=== PATIENT | male | born 1935 | race Caucasian/White ===

== ENCOUNTER 2018-11-05 11:01 | Inpatient (IN) | payer OTHER ==
[2018-11-05] MEDS ORDERED: ACETAMINOPHEN 1000 MG/100 ML VIAL (NON FORMULARY) IVPB ONE (11:11)
[2018-11-05] MEDS ORDERED: FAMOTIDINE 20 MG/50 ML IVPB 20 MG/50 ML MG IVPB ONE ×2 (11:11→14:01)
[2018-11-05] MEDS ORDERED: SODIUM CHLORIDE 1,000 ML IV STA (11:11)
--- NOTE | 2018-11-05 11:11 | PDOC ---
History of Present Illness - General Chief Complaint: Nausea/Vomiting Stated Complaint: VOMITING Time Seen by Provider: 11/05/18 11:07 History Source: Patient Exam Limitations: Clinical Condition - History of Present Illness Initial Comments: Ismael Bonner is an 83 yo M from [facility] w a pmh of GERD, HTN, HLD, COPD, Anemia, chronic constipation, BPH, arthritis, recent left leg skin cancer removal, and Parkinsons disease who presents to the [facility] er BIBEMS after he experienced coffee ground emesis this morning at the longterm after he was eating eggs. Patient states he woke up and felt normal but then he ate eggs for breakfast and after breakfast started vomiting dark material. EMS said that the vomitus appeared to be coffee ground. The patient thinks his vomit was a result of eating some bad food. The patient states that this morning he had abdominal pain and nausea but that has mostly resolved after EMS gave him zofran which made him feel better. Patient states he had a bowel movement yesterday and feels constipated but this is no different than his usual constipation. Patient denies chest pain, back pain, SOB, fevers, diarrhea, headache, or neck pain. PCP: Teo Werner PSH: Recent left leg surgery, contracture surgeries Social Hx: [facility] resident. Former smoker. Denies current toxic habits. Allergies: NKA, NKDA Advanced directives: DNR/DNI Past History - Past Medical History Allergies/Adverse Reactions: Allergies Allergy/AdvReac Type Severity Reaction Status Date / Time No Known Drug Allergies Allergy Verified 11/05/18 11:15 Home Medications: Ambulatory Orders Ascorbate Calcium [Vitamin C] 500 mg PO DAILY 02/15/14 Carbidopa/Levodopa 10 [Sinemet 10 -] 2 tab PO TID 02/15/14 Divalproex [Depakote -] 750 mg PO HS 02/15/14 Fluticasone Prop 0.05% Nasal [Flonase -] 1 spray DAILY 02/15/14 Hydrochlorothiazide [Hctz -] 25 mg PO DAILY 02/15/14 Ropinirole HCl [Requip] 1 mg PO HS 02/15/14 Tamsulosin HCl [Flomax -] 2 cap PO HS 02/15/14 Cholecalciferol (Vitamin D3) [Vitamin D3] 1,000 unit PO DAILY 12/09/14 Multivitamin [Poly-Vitamin] 1 each PO DAILY 12/09/14 Polyethylene Glycol 3350 [Miralax 119 gm Btl -] 17 gm PO DAILY 12/09/14 Salmeterol/Fluticasone [Advair 100Mcg/50Mcg -] 1 inh PO BID 12/09/14 Selenium Sulfide/Menthol [Selsun Blue 1% Shampoo] 0 ml TP TH 12/09/14 Sennosides [Senna] 2 tab PO HS 12/09/14 Simvastatin 40 mg PO PCHS 12/09/14 Ferrous Gluconate [Iron] 325 mg PO BID 08/13/15 Anemia: Yes Asthma: No Cancer: No Cardiac Disorders: No CVA: No COPD: Yes CHF: No Dementia: No Diabetes: No GI Disorders: No Disorders: No HTN: Yes Hypercholesterolemia: Yes Liver Disease: No Seizures: No Thyroid Disease: No - Surgical History Abdominal Surgery: No Appendectomy: No Cardiac Surgery: No Cholecystectomy: No Lung Surgery: No Neurologic Surgery: No Orthopedic Surgery: No - Suicide/Smoking/Psychosocial Hx Smoking History: Former smoker Have you smoked in the past 12 months: Yes Number of Cigarettes Smoked Daily: 2 Hx Alcohol Use: No Drug/Substance Use Hx: No Review of Systems - Review of Systems Able to Perform ROS?: Yes Comments:: CONSTITUTIONAL: Absent: fever, no chills, no fatigue EYES: Absent: visual changes ENT: Absent: ear pain, no sore throat CARDIOVASCULAR: Absent: chest pain, no palpitations RESPIRATORY: Absent: cough, no SOB GI: Present: Abdominal pain, nausea, vomiting, constipation. Absent: no diarrhea GENITOURINARY: Absent: dysuria, no frequency, no hematuria MUSKULOSKELETAL: Present: Arthralgia Absent: back pain, no myalgia SKIN: Present: rash NEURO: Absent: headache *Physical Exam - Physical Exam Comments: GENERAL: Elderly, frail, multiple contractures, pale. No apparent distress. HEENT: Normocephalic, atraumatic. PERRL, EOM intact. CARDIOVASCULAR: Tachycardic rate. Normal S1, S2. Regular rhythm. PULMONARY: No evidence of respiratory distress. Lungs clear to auscultation bilaterally. No wheezing, rales or rhonchi. ABDOMEN: The abdomen is distended. There is generalized discomfort to palpation. Normal bowel sounds. No guarding or rebound. EXTREMITIES: Limited ROM in all four extremities. SKIN: There are stitches in the left lower leg. Multiple stage 1 pressure ulcers on patient's b/l feet. NEUROLOGICAL: No focal neurological deficits. ED Treatment Course - LABORATORY CBC & Chemistry Diagram: 11/05/18 12:26 11/05/18 12:26 - RADIOLOGY Radiograph Interpretation: CTAP: HISTORY PROVIDED: Abdominal pain. Sequential axial images were obtained from the domes of the diaphragms through the symphysis pubis following the administration of intravenous contrast material. Atelectatic changes are noted at both lung bases. There is a moderate hiatal hernia in the retrocardiac space. The liver, spleen, pancreas, adrenal glands and kidneys demonstrate no significant abnormalities. The gallbladder is clear. There is no evidence of intra-abdominal or retroperitoneal lymphadenopathy or fluid collections. There is no evidence of pneumoperitoneum, bowel obstruction or intra-abdominal abscess. There is no CT evidence of acute appendicitis or diverticulitis. Examination of the pelvis demonstrates a large amount of retained fecal material within the rectum. There is no evidence of pelvic masses, fluid collections or lymphadenopathy. There is a right inguinal hernia containing nonobstructed small bowel loops. There is a left atrial hernia containing a portion of the sigmoid colon. There is no evidence of acute bony pathology. IMPRESSION: 1. Moderate hiatal hernia. 2. Bilateral inguinal hernias. 3. Fecal impaction. Please see above discussion. Medical Decision Making - Medical Decision Making Ismael Bonner is an 83 yo M from [facility] w a pmh of GERD, HTN, HLD, COPD, Anemia, chronic constipation, BPH, arthritis, recent left leg skin cancer removal, and Parkinsons disease who presents to the [facility] after he experienced coffee ground emesis this morning at the longterm after he was eating eggs. Patient states he woke up and felt normal but then he ate eggs for breakfast and after breakfast started vomiting dark material. EMS said that the vomitus appeared to be coffee ground. The patient thinks his vomit was a result of eating some bad food. The patient states that this morning he had abdominal pain and nausea but that has mostly resolved after EMS gave him zofran which made him feel better. Patient states he had a bowel movement yesterday and feels constipated but this is no different than his usual constipation. Vital Signs Temp Pulse Resp BP Pulse Ox 97.7 F 124 H 18 139/78 100 11/05/18 11:01 11/05/18 11:01 11/05/18 11:01 11/05/18 11:01 11/05/18 11:01 DDx IBNLT: SBO, cholecystitis, volvulus, diverticulitis, electrolyte/metabolic disturbance, ACS/ND, gastritis, gastroenteritis, GERD, PUD, appendicitis, dehydration Plan: Labs, Urine, EKG, CTAP, analgesia, IV hydration, re-assess, probable admission to hospital Labs: CBC,CMP WBC 17.1 K/mm3 (4.0-10.0) H 11/05/18 12:26 RBC 4.80 M/mm3 (4.00-5.60) 11/05/18 12:26 Hgb 14.7 GM/dL (11.7-16.9) 11/05/18 12:26 Hct 45.1 % (35.4-49) D 11/05/18 12:26 MCV 94.1 fl (80-96) 11/05/18 12:26 MCH 30.6 pg (25.7-33.7) 11/05/18 12:26 MCHC 32.5 g/dl (32.0-35.9) 11/05/18 12:26 RDW 14.0 % (11.9-15.9) 11/05/18 12:26 Plt Count 217 K/MM3 (134-434) 11/05/18 12:26 MPV 10.4 fl (7.5-11.1) 11/05/18 12:26 Absolute Neuts (auto) 15.6 K/mm3 (1.5-8.0) H 11/05/18 12:26 Neutrophils % 91.6 % (42.8-82.8) H 11/05/18 12:26 Neutrophils % (Manual) 84.7 % (42.8-82.8) H 11/05/18 12:26 Band Neutrophils % 6.1 % 11/05/18 12:26 Lymphocytes % 2.2 % (8-40) L D 11/05/18 12:26 Lymphocytes % (Manual) 2.1 % (8-40) L 11/05/18 12:26 Monocytes % 6.0 % (3.8-10.2) 11/05/18 12:26 Monocytes % (Manual) 6 % (3.8-10.2) 11/05/18 12:26 Eosinophils % 0.1 % (0-4.5) D 11/05/18 12:26 Eosinophils % (Manual) 0.0 % (0-4.5) 11/05/18 12:26 Basophils % 0.1 % (0-2.0) 11/05/18 12:26 Basophils % (Manual) 0.0 % (0-2.0) 11/05/18 12:26 Myelocytes % (Man) 0 % (0-2) 11/05/18 12:26 Promyelocytes % (Man) 0 % (0-2) 11/05/18 12:26 Blast Cells % (Manual) 0 % (0-0) 11/05/18 12:26 Nucleated RBC % 0 % (0-0) 11/05/18 12:26 Metamyelocytes 0 % (0-2) 11/05/18 12:26 Hypochromia 0 11/05/18 12:26 Toxic Granulation 1+ 11/05/18 12:26 Platelet Estimate Normal 11/05/18 12:26 Polychromasia 0 11/05/18 12:26 Poikilocytosis 0 11/05/18 12:26 Anisocytosis 0 11/05/18 12:26 Microcytosis 0 11/05/18 12:26 Macrocytosis 1+ 11/05/18 12:26 Sodium 142 mmol/L (136-145) 11/05/18 12:26 Potassium 4.1 mmol/L (3.5-5.1) 11/05/18 12:26 Chloride 102 mmol/L (98-107) 11/05/18 12:26 Carbon Dioxide 29 mmol/L (21-32) 11/05/18 12:26 Anion Gap 10 MMOL/L (8-16) 11/05/18 12:26 BUN 24.8 mg/dL (7-18) H 11/05/18 12:26 Creatinine 0.9 mg/dL (0.55-1.3) 11/05/18 12:26 Est GFR (CKD-EPI)AfAm 89.95 11/05/18 12:26 Est GFR (CKD-EPI)NonAf 77.61 11/05/18 12:26 Random Glucose 113 mg/dL (74-106) H 11/05/18 12:26 Lactic Acid 1.4 mmol/L (0.4-2.0) 11/05/18 12:26 Calcium 9.2 mg/dL (8.5-10.1) 11/05/18 12:26 Phosphorus 2.7 mg/dL (2.5-4.9) 11/05/18 12:26 Magnesium 2.0 mg/dL (1.8-2.4) 11/05/18 12:26 Total Bilirubin 1.0 mg/dL (0.2-1) 11/05/18 12:26 AST 560 U/L (15-37) H 11/05/18 12:26 ALT 358 U/L (13-61) H 11/05/18 12:26 Alkaline Phosphatase 155 U/L (45-117) H 11/05/18 12:26 Troponin I < 0.02 ng/ml (0.00-0.05) 11/05/18 12:26 Total Protein 6.8 g/dl (6.4-8.2) 11/05/18 12:26 Albumin 3.3 g/dl (3.4-5.0) L 11/05/18 12:26 Lipase 3128 U/L (73-393) H 11/05/18 12:26 EKG: Sinus tachycardia rate of 123, narrow complexes, normal axis, no hypertrophy, no abnormal TWI's, Possible [address] depressions in v4-v6, no Q waves. WV 116, QTc 440 CTAP: Unremarkable Disposition: Admit to hospital for pancreatitis. *DC/Admit/Observation/Transfer Diagnosis at time of Disposition: Pancreatitis Qualifiers: Chronicity: acute Pancreatitis type: unspecified pancreatitis type Acute pancreatitis complication: unspecified Qualified Code(s): K85.90 - Acute pancreatitis without necrosis or infection, unspecified - Discharge Dispostion Condition at time of disposition: Stable Decision to Admit order: Yes - Referrals - Patient Instructions - Post Discharge Activity
[2018-11-05] MEDS ORDERED: ONDANSETRON 4 MG/2 ML VIAL IVPUSH ONE (11:12)
[2018-11-05 11:15] VITALS: BMI 20.3
[2018-11-05] MEDS ORDERED: ONDANSETRON 4 MG/2 ML VIAL ONE ×2 (11:15→14:42)
--- NOTE | 2018-11-05 12:57 | PDOC ---
Documentation entered by Nita Coyne SCRIBE, acting as scribe for Meghan Zelaya MD. Meghan Zelaya MD: This documentation has been prepared by the Doretha lai Nirvannie, SCRIBE, under my direction and personally reviewed by me in its entirety. I confirm that the documentation accurately reflects all work, treatment, procedures, and medical decision making performed by me. Attending Attestation - Resident Resident Name: Luciano Rich - ED Attending Attestation I have performed the following: I have examined & evaluated the patient, The case was reviewed & discussed with the resident, I agree w/resident's findings & plan, Exceptions are as noted - HPI HPI: 11/05/18 12:06 The patient is an 83 year old male, with a significant past medical history of GERD, HTN, HLD, COPD, Anemia, chronic constipation, BPH, arthritis, recent left leg skin cancer removal, and Parkinsons Disease , who presents to the emergency department via EMS from [facility] with, s/p episode coffee ground emesis and abdominal pain. As per patient, he ate eggs this morning then vomited which was dark in color. He notes his symptoms improved with Zofran. He denies any recent fevers, chills, headache or dizziness. He denies any recent chest pain or shortness of breath. He denies any recent dysuria, frequency, urgency or hematuria. Allergies: NKDA Social History: Resident at [facility]. Former smoker. Primary Care Physician: Dr. Teo Werner - Physicial Exam PE: 11/05/18 11:57 GENERAL: Awake, alert, and fully oriented, in no acute distress HEAD: No signs of trauma EYES: PERRLA, EOMI, sclera anicteric, conjunctiva clear ENT: Auricles normal inspection, hearing grossly normal, nares patent, oropharynx clear without exudates. Dry mucosa NECK: Normal ROM, supple, no lymphadenopathy, JVD, or masses LUNGS: Breath sounds equal, clear to auscultation bilaterally. No wheezes, and no crackles HEART: Regular rate and rhythm, normal S1 and S2, no murmurs, rubs or gallops ABDOMEN: Soft, nontender, normoactive bowel sounds. No guarding, no rebound. No masses EXTREMITIES: Normal range of motion, no edema. No clubbing or cyanosis. No cords, erythema, or tenderness NEUROLOGICAL: Cranial nerves II through XII grossly intact. Normal speech. Motor and sensation intact SKIN: Warm, Dry, normal turgor, no rashes or lesions noted - Medical Decision Making Pt presents with abd pain, vomiting, coffee ground emesis. Will obtain labs, check stool guaiac, give IV fluids, and obtain CT a/p (due to tenderness). Plan for likely admission. 11/05/18 15:27 Pt with extremely elevated lipase. Will add abdominal ultrasound and admit for pancreatitis.
[2018-11-05 13:02] LABS: BASO % 0.1 % (0-2.0); EOS % 0.1 % (0-4.5); HEMATOCRIT 45.1 % (35.4-49); HEMOGLOBIN 14.7 GM/dL (11.7-16.9); LYMPH % 2.2 % (8-40); MCH 30.6 pg (25.7-33.7); MCHC 32.5 g/dl (32.0-35.9); MEAN CELL VOLUME 94.1 fl (80-96); MEAN PLT VOLUME 10.4 fl (7.5-11.1); NEUT % 91.6 % (42.8-82.8); PLATELET COUNT 217 K/MM3 (134-434); WHITE BLOOD COUNT 17.1 K/mm3 (4.0-10.0)
[2018-11-05 13:13] LABS: ALBUMIN 3.3 g/dl (3.4-5.0); ALK PHOS 155 U/L (45-117); ANION GAP 10 MMOL/L (8-16); BLOOD UREA NITROGEN 24.8 mg/dL (7-18); CALCIUM 9.2 mg/dL (8.5-10.1); CHLORIDE 102 mmol/L (98-107); CO2 29 mmol/L (21-32); CREATININE 0.9 mg/dL (0.55-1.3); GLUCOSE,RANDOM 113 mg/dL (74-106); LIPASE 3128 U/L (73-393); PHOSPHOROUS 2.7 mg/dL (2.5-4.9); POTASSIUM 4.1 mmol/L (3.5-5.1); SGOT/AST 560 U/L (15-37); SGPT/ALT 358 U/L (13-61); SODIUM 142 mmol/L (136-145); TOT PROT 6.8 g/dl (6.4-8.2)
[2018-11-05] MEDS ORDERED: ACETAMINOPHEN INJECTION 100 ML IVPB ONE (13:48)
[2018-11-05 14:09] LABS: ANISOCYTOSIS 0; MACROCYTOSIS 1+; PLATELET ESTIMATE NORMAL; TOXIC GRANULATION 1+
[2018-11-05] MEDS ORDERED: PANTOPRAZOLE SODIUM 40 MG VIAL IVPUSH ONE (14:49)
[2018-11-05] MEDS ORDERED: SODIUM CHLORIDE 1,000 ML IV SCH (15:45)
[2018-11-05] MEDS ORDERED: PANTOPRAZOLE SODIUM 40 MG VIAL ONE ×2 (16:31→22:39)
--- NOTE | 2018-11-05 17:36 | CON.GI ---
Consult Consult Specialty:: Gastroenterology ( covering [facility] GI service) Referred by:: Dr Luciano Lane Reason for Consultation:: vomiting - History of Present Illness Chief Complaint: Intractible vomiting that began this moring History of Present Illness: 83M resident of [facility] developed dark bilious and ? bloody vomitus after eating eggs for breakfast. He denies any abdominal or back pain. he has never had GI bleeding or pancreatitis. He has never had an EGD or a colonoscopy. He drank alcohol regularly in the past but denies any bouts with pancreatitis or liver disease. - History Source History Provided By: Patient Limitations to Obtaining History: No Limitations - Past Medical History BREAD ROOM HAND: Yes: Parkinson's Cardio/Vascular: Yes: Hyperlipdemia Pulmonary: Yes: COPD (has required bronchoscopy and chest tubes for collapsed lung due to mucus plugging andh for thoracenteses) Renal/: Yes: BPH Rheumatology: Yes: Other (left hand contracted.) Dermatology: Yes: Basal Cell (multiple skin cancer excisions lower extremities) - Past Surgical History Past Surgical History: Yes: Tonsillectomy Additional Surgical History: skin cancer excisions. bronchoscopies and chest tubes. 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 Place of : [facility] History of Recent Travel: No Home Medications - Allergies Allergies/Adverse Reactions: Allergies Allergy/AdvReac Type Severity Reaction Status Date / Time No Known Drug Allergies Allergy Verified 11/05/18 11:15 - Home Medications Home Medications: Ambulatory Orders Ascorbate Calcium [Vitamin C] 500 mg PO DAILY 02/15/14 Carbidopa/Levodopa 10/ [Sinemet 10 -] 2 tab PO TID 02/15/14 Divalproex [Depakote -] 750 mg PO HS 02/15/14 Fluticasone Prop 0.05% Nasal [Flonase -] 1 spray DAILY 02/15/14 Hydrochlorothiazide [Hctz -] 25 mg PO DAILY 02/15/14 Ropinirole HCl [Requip] 1 mg PO HS 02/15/14 Tamsulosin HCl [Flomax -] 2 cap PO HS 02/15/14 Cholecalciferol (Vitamin D3) [Vitamin D3] 1,000 unit PO DAILY 12/09/14 Multivitamin [Poly-Vitamin] 1 each PO DAILY 12/09/14 Polyethylene Glycol 3350 [Miralax 119 gm Btl -] 17 gm PO DAILY 12/09/14 Salmeterol/Fluticasone [Advair 100Mcg/50Mcg -] 1 inh PO BID 12/09/14 Selenium Sulfide/Menthol [Selsun Blue 1% Shampoo] 0 ml TP TH 12/09/14 Sennosides [Senna] 2 tab PO HS 12/09/14 Simvastatin 40 mg PO PCHS 12/09/14 Ferrous Gluconate [Iron] 325 mg PO BID 08/13/15 Family Disease History - Family Disease History Family Disease History: Other: Father ( 60s of CVAs), Mother (lived to her 90s) Review of Systems - Review of Systems Constitutional: reports: No Symptoms Eyes: reports: No Symptoms HENT: reports: No Symptoms Neck: reports: No Symptoms Cardiovascular: reports: No Symptoms Respiratory: reports: No Symptoms Gastrointestinal: reports: Vomiting Genitourinary: reports: No Symptoms Musculoskeletal: reports: Joint Pain Physical Exam-GI Vital Signs: Vital Signs Temperature 97.7 F 11/05/18 11:01 Pulse Rate 90 11/05/18 15:51 Respiratory Rate 18 11/05/18 11:01 Blood Pressure 133/67 11/05/18 15:51 O2 Sat by Pulse Oximetry (%) 100 11/05/18 15:51 CBC,CMP WBC 17.1 K/mm3 (4.0-10.0) H 11/05/18 12:26 RBC 4.80 M/mm3 (4.00-5.60) 11/05/18 12:26 Hgb 14.7 GM/dL (11.7-16.9) 11/05/18 12:26 Hct 45.1 % (35.4-49) D 11/05/18 12:26 MCV 94.1 fl (80-96) 11/05/18 12:26 MCH 30.6 pg (25.7-33.7) 11/05/18 12:26 MCHC 32.5 g/dl (32.0-35.9) 11/05/18 12:26 RDW 14.0 % (11.9-15.9) 11/05/18 12:26 Plt Count 217 K/MM3 (134-434) 11/05/18 12:26 MPV 10.4 fl (7.5-11.1) 11/05/18 12:26 Absolute Neuts (auto) 15.6 K/mm3 (1.5-8.0) H 11/05/18 12:26 Neutrophils % 91.6 % (42.8-82.8) H 11/05/18 12:26 Neutrophils % (Manual) 84.7 % (42.8-82.8) H 11/05/18 12:26 Band Neutrophils % 6.1 % 11/05/18 12:26 Lymphocytes % 2.2 % (8-40) L D 11/05/18 12:26 Lymphocytes % (Manual) 2.1 % (8-40) L 11/05/18 12:26 Monocytes % 6.0 % (3.8-10.2) 11/05/18 12:26 Monocytes % (Manual) 6 % (3.8-10.2) 11/05/18 12:26 Eosinophils % 0.1 % (0-4.5) D 11/05/18 12:26 Eosinophils % (Manual) 0.0 % (0-4.5) 11/05/18 12:26 Basophils % 0.1 % (0-2.0) 11/05/18 12:26 Basophils % (Manual) 0.0 % (0-2.0) 11/05/18 12:26 Myelocytes % (Man) 0 % (0-2) 11/05/18 12:26 Promyelocytes % (Man) 0 % (0-2) 11/05/18 12:26 Blast Cells % (Manual) 0 % (0-0) 11/05/18 12:26 Nucleated RBC % 0 % (0-0) 11/05/18 12:26 Metamyelocytes 0 % (0-2) 11/05/18 12:26 Hypochromia 0 11/05/18 12:26 Toxic Granulation 1+ 11/05/18 12:26 Platelet Estimate Normal 11/05/18 12:26 Polychromasia 0 11/05/18 12:26 Poikilocytosis 0 11/05/18 12:26 Anisocytosis 0 11/05/18 12:26 Microcytosis 0 11/05/18 12:26 Macrocytosis 1+ 11/05/18 12:26 Sodium 142 mmol/L (136-145) 11/05/18 12:26 Potassium 4.1 mmol/L (3.5-5.1) 11/05/18 12:26 Chloride 102 mmol/L (98-107) 11/05/18 12:26 Carbon Dioxide 29 mmol/L (21-32) 11/05/18 12:26 Anion Gap 10 MMOL/L (8-16) 11/05/18 12:26 BUN 24.8 mg/dL (7-18) H 11/05/18 12:26 Creatinine 0.9 mg/dL (0.55-1.3) 11/05/18 12:26 Est GFR (CKD-EPI)AfAm 89.95 11/05/18 12:26 Est GFR (CKD-EPI)NonAf 77.61 11/05/18 12:26 Random Glucose 113 mg/dL (74-106) H 11/05/18 12:26 Lactic Acid 1.4 mmol/L (0.4-2.0) 11/05/18 12:26 Calcium 9.2 mg/dL (8.5-10.1) 11/05/18 12:26 Phosphorus 2.7 mg/dL (2.5-4.9) 11/05/18 12:26 Magnesium 2.0 mg/dL (1.8-2.4) 11/05/18 12:26 Total Bilirubin 1.0 mg/dL (0.2-1) 11/05/18 12:26 AST 560 U/L (15-37) H 11/05/18 12:26 ALT 358 U/L (13-61) H 11/05/18 12:26 Alkaline Phosphatase 155 U/L (45-117) H 11/05/18 12:26 Troponin I < 0.02 ng/ml (0.00-0.05) 11/05/18 12:26 Total Protein 6.8 g/dl (6.4-8.2) 11/05/18 12:26 Albumin 3.3 g/dl (3.4-5.0) L 11/05/18 12:26 Lipase 3128 U/L (73-393) H 11/05/18 12:26 Current Medications Generic Name Dose Route Start Last Admin Trade Name Helena PRN Reason Stop Dose Admin Sodium Chloride 1,000 mls @ 100 mls/hr 11/05/18 15:45 11/05/18 17:16 Normal Saline - IV 100 mls/hr ASDIR PETE Administration Constitutional: Yes: No Distress Eyes: Yes: Conjunctiva Clear HENT: Yes: Atraumatic Neck: Yes: Supple Cardiovascular: Yes: Regular Rate and Rhythm Respiratory: Yes: CTA Bilaterally, Hyperresonant Gastrointestinal Inspection: Yes: WNL ...Auscultate: Yes: Hypoactive Bowel Sounds ...Palpate: Yes: Soft, Other (nontender) ...Rectal Exam: Yes: Deferred (nonprivate ER location) Labs: CBC, BMP 11/05/18 12:26 11/05/18 12:26 Imaging - Results Cat Scan: Report Reviewed ( Final Report CT ABDOMEN & PELVIS CT WITH CONTR Show Printer-Friendly Version Patient Name: Ismael Bonner : Aug-1935 ID: [id number] Study Date: 05-Nov-2018 14:13 Keturah Trevino Name: ISMAEL BONNER DEPARTMENT OF RADIOLOGY Phys: Luciano Rich RESIDENT : 1935 Age: 83 Sex: M [facility] Acct: [id number] Loc: [address] Exam Date: 11/05/18 Status: [facility] [place],[facility] Unit Number: [id number] EXAM#: TYPE/EXAM: RESULT: CT/ABDOMEN PELVIS CT WITH CONTR HISTORY PROVIDED: Abdominal pain. Sequential axial images were obtained from the domes of the diaphragms through the symphysis pubis following the administration of intravenous contrast material. Atelectatic changes are noted at both lung bases. There is a moderate hiatal hernia in the retrocardiac space. The liver, spleen, pancreas, adrenal glands and kidneys demonstrate no significant abnormalities. The gallbladder is clear. There is no evidence of intra-abdominal or retroperitoneal lymphadenopathy or fluid collections. There is no evidence of pneumoperitoneum, bowel obstruction or intra-abdominal abscess. There is no CT evidence of acute appendicitis or diverticulitis. Examination of the pelvis demonstrates a large amount of retained fecal material within the rectum. There is no evidence of pelvic masses, fluid collections or lymphadenopathy. There is a right inguinal hernia containing nonobstructed small bowel loops. There is a left atrial hernia containing a portion of the sigmoid colon. There is no evidence of acute bony pathology. IMPRESSION: 1. Moderate hiatal hernia. 2. Bilateral inguinal hernias. 3. Fecal impaction. Please see above discussion. Reported By: Antione Arias MD 11/05/18 1502 LUCIANO RICH Technologist: Elgin Murphy Transcribed Date/Time: 11/05/18 1502 Switchboard Operator Supervisor: Antione Arias Printed Date/Time: By: Signed by: Antione Arias Signed on: 05-Nov-2018 15:03) Problem List - Problems (1) Vomiting without nausea, intractable Code(s): R11.11 - VOMITING WITHOUT NAUSEA (2) Pancreatitis Code(s): K85.90 - ACUTE PANCREATITIS WITHOUT NECROSIS OR INFECTION, UNSP Qualifiers: Chronicity: acute Pancreatitis type: unspecified pancreatitis type Acute pancreatitis complication: unspecified Qualified Code(s): K85.90 - Acute pancreatitis without necrosis or infection, unspecified (3) Hematemesis Code(s): K92.0 - HEMATEMESIS (4) Skin cancer Code(s): C44.90 - UNSPECIFIED MALIGNANT NEOPLASM OF SKIN, UNSPECIFIED (5) COPD (chronic obstructive pulmonary disease) Code(s): J44.9 - CHRONIC OBSTRUCTIVE PULMONARY DISEASE, UNSPECIFIED Qualifiers: COPD type: COPD with acute lower respiratory infection Qualified Code(s): J44.0 - Chronic obstructive pulmonary disease with acute lower respiratory infection (6) Parkinsonism Code(s): G20 - PARKINSON'S DISEASE Assessment/Plan Assessment: - Given the lipase and LFT elevation s I believe that Ismael has biliary pancreatitis. I dount hematemesis given his Hct Plan: -- MRCP -- NPO -- IV fluids -- Antibiotics after cultures to protct against cholangitis -- I have discussed the potential need for an ERCP to extract stones and informed Ismael of the potential for such complications as perforation, hemorrhage and ERCP induced pancreatitis leading to multiorgan failure. He has signed an informed consent should this procedure prove necessary. He should also undergo cholecystecotmy if gallstones are documented. -- PPI empirically
--- NOTE | 2018-11-05 17:58 | HP ---
Admitting History and Physical - Primary Care Physician PCP: Teo Werner - Admission Chief Complaint: coffee ground emesis History of Present Illness: ER HISTORY - History of Present Illness Initial Comments: Ismael Bonner is an 83 yo M from [facility] w a pmh of GERD, HTN, HLD, COPD, Anemia, chronic constipation, BPH, arthritis, recent left leg skin cancer removal, and Parkinsons disease who presents to the [facility] er BIBEMS after he experienced coffee ground emesis this morning at the alf after he was eating eggs. Patient states he woke up and felt normal but then he ate eggs for breakfast and after breakfast started vomiting dark material. EMS said that the vomitus appeared to be coffee ground. The patient thinks his vomit was a result of eating some bad food. The patient states that this morning he had abdominal pain and nausea but that has mostly resolved after EMS gave him zofran which made him feel better. Patient states he had a bowel movement yesterday and feels constipated but this is no different than his usual constipation. Patient denies chest pain, back pain, SOB, fevers, diarrhea, headache, or neck pain. PCP: Teo Werner PSH: Recent left leg surgery, contracture surgeries Social Hx: [facility] resident. Former smoker. Denies current toxic habits. 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 [employer] CONTINUITY: Yes: Parkinson's Cardiovascular: Yes: Hyperlipdemia Pulmonary: Yes: COPD (has required bronchoscopy and chest tubes for collapsed lung due to mucus plugging andh for thoracenteses) Renal/: Yes: BPH Rheumatology: Yes: Other (left hand contracted.) Dermatology: Yes: Basal Cell (multiple skin cancer excisions lower extremities) - Past Surgical History Past Surgical History: Yes: Tonsillectomy - Smoking History Smoking history: Former smoker Have you smoked in the past 12 months: Yes Aproximately how many cigarettes per day: 2 If you are a former smoker, when did you quit?: 5 years ago - Alcohol/Substance Use Hx Alcohol Use: Yes (drank heavily in the past ) History of Substance Use: reports: None - Social History ADL: Support Services 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 History of Recent Travel: No Home Medications - Allergies Allergies/Adverse Reactions: Allergies Allergy/AdvReac Type Severity Reaction Status Date / Time No Known Drug Allergies Allergy Verified 11/05/18 11:15 - Home Medications Home Medications: Ambulatory Orders Ascorbate Calcium [Vitamin C] 500 mg PO DAILY 02/15/14 Carbidopa/Levodopa [Sinemet 10/100 -] 2 tab PO TID 02/15/14 Divalproex [Depakote -] 750 mg PO HS 02/15/14 Fluticasone Prop 0.05% Nasal [Flonase -] 1 spray DAILY 02/15/14 Hydrochlorothiazide [Hctz -] 25 mg PO DAILY 02/15/14 Ropinirole HCl [Requip] 1 mg PO HS 02/15/14 Tamsulosin HCl [Flomax -] 2 cap PO HS 02/15/14 Cholecalciferol (Vitamin D3) [Vitamin D3] 1,000 unit PO DAILY 12/09/14 Multivitamin [Poly-Vitamin] 1 each PO DAILY 12/09/14 Polyethylene Glycol 3350 [Miralax 119 gm Btl -] 17 gm PO DAILY 12/09/14 Salmeterol/Fluticasone [Advair 100Mcg/50Mcg -] 1 inh PO BID 12/09/14 Selenium Sulfide/Menthol [Selsun Blue 1% Shampoo] 0 ml TP TH 12/09/14 Sennosides [Senna] 2 tab PO HS 12/09/14 Simvastatin 40 mg PO PCHS 12/09/14 Ferrous Gluconate [Iron] 325 mg PO BID 08/13/15 Family Disease History - Family Disease History Family Disease History: Other: Father ( 60s of CVAs), Mother (lived to her 90s) Review of Systems - Review of Systems Constitutional: denies: Chills Gastrointestinal: reports: Abdominal Pain. denies: Constipation, Melena Physical Examination Vital Signs: Vital Signs Temperature 97.7 F 11/05/18 11:01 Pulse Rate 90 11/05/18 15:51 Respiratory Rate 18 11/05/18 11:01 Blood Pressure 133/67 11/05/18 15:51 O2 Sat by Pulse Oximetry (%) 100 11/05/18 15:51 Constitutional: Yes: No Distress, Calm Cardiovascular: Yes: Regular Rate and Rhythm Respiratory: Yes: Diminished Gastrointestinal: Yes: Normal Bowel Sounds, Soft, Tenderness (epigastrium). No : Distention Extremities: Yes: Other (contracted extremities, left leg-- wound is clearn, sutures+) Edema: No Labs: CBC, BMP 11/05/18 12:26 11/05/18 12:26 Imaging - Results Chest X-ray: Image Reviewed Cat Scan: Report Reviewed Problem List - Problems (1) Hematemesis Code(s): K92.0 - HEMATEMESIS (2) Vomiting without nausea, intractable Code(s): R11.11 - VOMITING WITHOUT NAUSEA (3) Anxiety Code(s): F41.9 - ANXIETY DISORDER, UNSPECIFIED (4) COPD (chronic obstructive pulmonary disease) Code(s): J44.9 - CHRONIC OBSTRUCTIVE PULMONARY DISEASE, UNSPECIFIED Qualifiers: COPD type: COPD with acute lower respiratory infection Qualified Code(s): J44.0 - Chronic obstructive pulmonary disease with acute lower respiratory infection (5) Parkinsonism Code(s): G20 - PARKINSON'S DISEASE Assessment/Plan PLAN gallstone pancreatitis CT abd noted GI eval NPO IV fluids start antibiotics DVT prophylaxis-- SCD protonix monitor lipase and WBC
[2018-11-05] MEDS ORDERED: LACTATED RINGERS SOLUTION 1,000 ML/1,000 ML INFUS.BAG IV SCH (18:00)
[2018-11-05] MEDS ORDERED: CEFAZOLIN 1 GM/D5W 1 GM/50 ML BAG ONE (19:22)
[2018-11-05] MEDS: CEFAZOLIN 1 GM in DEXTROSE 5%-WATER - 50 ML IVPB SCH (19:56)
[2018-11-05 21:32] LABS: URINE APPEARANCE CLEAR; URINE COLOR DK YELLOW; URINE GLUCOSE (UA) NEGATIVE (NEGATIVE)
[2018-11-05 21:33] LABS: PH,URINE 5.5 (5.0-8.0); URINE BILIRUBIN NEGATIVE (NEGATIVE); URINE KETONE TRACE (NEGATIVE); URINE PROTEIN NEGATIVE (NEGATIVE)
[2018-11-05 21:34] LABS: URINE LEUK ESTERASE NEGATIVE (NEGATIVE); URINE NITRITE NEGATIVE (NEGATIVE)
[2018-11-05] MEDS ORDERED: TAMSULOSIN HCL 0.4 MG CAP ONE (22:39)
[2018-11-05] MEDS: TAMSULOSIN HCL 0.4 MG CAP PO SCH (23:03)
[2018-11-05] MEDS: CARBIDOPA/LEVODOPA 10/100 TABLET (FP) PO SCH (23:04)
[2018-11-05] MEDS: rOPINIRole HCL 1 MG TABLET (FP) PO SCH (23:04)
[2018-11-05] MEDS: PANTOPRAZOLE SODIUM 40 MG VIAL IVPUSH SCH (23:04)
[2018-11-05] MEDS: FLUTICASONE/SALMETEROL 100 MCG/50 MCG DISKUS IH SCH (23:04)
[2018-11-06] MEDS ORDERED: CEFAZOLIN 1 GM/D5W 1 GM/50 ML BAG ONE ×2 (02:15→08:15)
[2018-11-06] MEDS: CEFAZOLIN 1 GM in DEXTROSE 5%-WATER - 50 ML IVPB SCH ×3 (02:32→17:36)
[2018-11-06] MEDS: CARBIDOPA/LEVODOPA 10/100 TABLET (FP) PO SCH ×3 (06:30→23:16)
[2018-11-06 07:18] LABS: BASO % 0.3 % (0-2.0); EOS % 3.9 % (0-4.5); HEMATOCRIT 35.3 % (35.4-49); HEMOGLOBIN 11.7 GM/dL (11.7-16.9); LYMPH % 13.2 % (8-40); MCH 31.1 pg (25.7-33.7); MCHC 33.2 g/dl (32.0-35.9); MEAN CELL VOLUME 93.7 fl (80-96); MEAN PLT VOLUME 10.1 fl (7.5-11.1); MONO % 10.1 % (3.8-10.2); NEUT % 72.5 % (42.8-82.8); PLATELET COUNT 153 K/MM3 (134-434); RBC 3.77 M/mm3 (4.00-5.60); RDW 14.4 % (11.9-15.9); WHITE BLOOD COUNT 6.7 K/mm3 (4.0-10.0)
[2018-11-06 07:27] LABS: ALBUMIN 2.5 g/dl (3.4-5.0); BILIRUBIN,DIRECT 0.3 mg/dL (0.0-0.2); BILIRUBIN,TOTAL 0.8 mg/dL (0.2-1); BLOOD UREA NITROGEN 22.3 mg/dL (7-18); CALCIUM 8.3 mg/dL (8.5-10.1); CREATININE 0.8 mg/dL (0.55-1.3); POTASSIUM 3.9 mmol/L (3.5-5.1); TOT PROT 5.4 g/dl (6.4-8.2)
[2018-11-06] MEDS ORDERED: PANTOPRAZOLE SODIUM 40 MG VIAL ONE (08:15)
[2018-11-06] MEDS: PANTOPRAZOLE SODIUM 40 MG VIAL IVPUSH SCH ×2 (09:15→23:18)
[2018-11-06] MEDS: FLUTICASONE/SALMETEROL 100 MCG/50 MCG DISKUS IH SCH ×2 (10:06→23:16)
[2018-11-06 11:24] LABS: INR 1.11 (0.83-1.09); PROTHROMBIN TIME (PATIENT) 13.1 SEC (9.7-13.0)
--- NOTE | 2018-11-06 11:29 | EKG ---
Test Reason : Blood Pressure : / mmHG Vent. Rate : 123 BPM Atrial Rate : 123 BPM P-R Int : 116 ms QRS Dur : 070 ms QT Int : 308 ms P-R-T Axes : 052 011 064 degrees QTc Int : 440 ms SINUS TACHYCARDIA NONSPECIFIC ST AND T WAVE ABNORMALITY ABNORMAL ECG WHEN COMPARED WITH ECG OF 09-DEC-2014 10:59, VENT. RATE HAS INCREASED Confirmed by TIMI BOJORQUEZ MD ([id number]) on 11/06/2018 11:29:15 AM Referred By: Confirmed By:TIMI BOJORQUEZ MD
--- NOTE | 2018-11-06 11:31 | PN.GI ---
GI Progress Note Subjective: GI NOte: Pain free. No further vomiting. LFTs improving. Hb down but no melena. Hungry. Sono confirms gallstones - Objective Vital Signs: Vital Signs Temperature 98.5 F 11/06/18 06:43 Pulse Rate 88 11/06/18 06:43 Respiratory Rate 18 11/06/18 06:43 Blood Pressure 140/64 11/06/18 06:43 O2 Sat by Pulse Oximetry (%) 95 11/06/18 06:43 Laboratory Tests 11/05/18 11/05/18 11/06/18 12:26 12:26 06:00 WBC 17.1 H Hgb 14.7 Total Bilirubin 1.0 0.8 Direct Bilirubin 0.3 H AST 560 H 209 H ALT 358 H 218 H Alkaline Phosphatase 155 H 124 H Total Amylase 261 H Lipase 3128 H 423 H 11/06/18 06:00 WBC 6.7 Hgb 11.7 Total Bilirubin Direct Bilirubin AST ALT Alkaline Phosphatase Total Amylase Lipase Constitutional: Calm ...Auscultate: Yes: Hypoactive Bowel Sounds ...Palpate: Yes: Soft, Other (nontender) Labs: CBC, BMP 11/06/18 06:00 11/06/18 06:00 INR, PTT INR 1.11 (0.83-1.09) H 11/06/18 11:05 Assessment/Plan Assessment: - Biliary pancreatitis. - I doubt a GI bleed and believe Hb drop is hydrational Plan: -- Await MRCP -- Trial of clear liquids -- IV fluids -- Contiue antibiotics -- I have againdiscussed the potential need for an ERCP to extract stones and informed Ismael of the potential for such complications as perforation, hemorrhage and ERCP induced pancreatitis leading to multiorgan failure. He has signed an informed consent should this procedure prove necessary. He should also undergo cholecystecotmy if gallstones are documented. -- PPI empirically Problem List - Problems (1) Vomiting without nausea, intractable Code(s): R11.11 - VOMITING WITHOUT NAUSEA (2) Pancreatitis Code(s): K85.90 - ACUTE PANCREATITIS WITHOUT NECROSIS OR INFECTION, UNSP Qualifiers: Chronicity: acute Pancreatitis type: unspecified pancreatitis type Acute pancreatitis complication: unspecified Qualified Code(s): K85.90 - Acute pancreatitis without necrosis or infection, unspecified (3) Hematemesis Code(s): K92.0 - HEMATEMESIS (4) Skin cancer Code(s): C44.90 - UNSPECIFIED MALIGNANT NEOPLASM OF SKIN, UNSPECIFIED (5) COPD (chronic obstructive pulmonary disease) Code(s): J44.9 - CHRONIC OBSTRUCTIVE PULMONARY DISEASE, UNSPECIFIED Qualifiers: COPD type: COPD with acute lower respiratory infection Qualified Code(s): J44.0 - Chronic obstructive pulmonary disease with acute lower respiratory infection (6) Parkinsonism Code(s): G20 - PARKINSON'S DISEASE
[2018-11-06] MEDS: LACTATED RINGERS SOLUTION 1,000 ML/1,000 ML INFUS.BAG IV SCH ×2 (11:34→14:10)
--- NOTE | 2018-11-06 12:25 | PN ---
Progress Note (short form) - Note Progress Note: Pt seen/ examined in er chart reviewed GI consult noted/ appreciated pt comfortable feels much better denies pain Vital Signs Temp 98.5 F 11/06/18 06:43 Pulse 88 11/06/18 06:43 Resp 18 11/06/18 06:43 BP 140/64 11/06/18 06:43 Pulse Ox 95 11/06/18 06:43 Intake & Output 11/05/18 11/06/18 11/06/18 23:59 11:59 23:59 Other: Voiding Method Diaper Active Medications Carbidopa/Levodopa (Sinemet 10/100 -) 2 each PO TID PETE Last Admin: 11/06/18 06:30 Dose: 2 each Cefazolin Sodium 1 gm/ (Dextrose) 50 mls @ 100 mls/hr IVPB Q8H-IV PETE Last Admin: 11/06/18 09:15 Dose: 100 mls/hr Metronidazole (Flagyl 250mg Premixed Ivpb -) 250 mg in 50 mls @ 50 mls/hr IVPB Q8H-IV PETE Last Admin: 11/06/18 10:32 Dose: 50 mls/hr Lactated Ringer's (Lactated Ringers Solution) 1,000 ml in 1,000 mls @ 75 mls/ hr IV ASDIR PETE Last Admin: 11/06/18 11:34 Dose: 75 mls/hr Pantoprazole Sodium (Protonix Iv) 40 mg IVPUSH BID PETE Last Admin: 11/06/18 09:15 Dose: 40 mg Ropinirole HCl (Requip -) 1 mg PO HS [facility] Last Admin: 11/05/18 23:04 Dose: 1 mg Fluticasone/Salmeterol (Advair 100mcg/50mcg -) 1 puff IH BID PETE Last Admin: 11/06/18 10:06 Dose: 1 puff Tamsulosin HCl (Flomax -) 0.8 mg PO HS [facility] Last Admin: 11/05/18 23:03 Dose: 0.8 mg CBC,CMP WBC 6.7 K/mm3 (4.0-10.0) 11/06/18 06:00 RBC 3.77 M/mm3 (4.00-5.60) L 11/06/18 06:00 Hgb 11.7 GM/dL (11.7-16.9) 11/06/18 06:00 Hct 35.3 % (35.4-49) L D 11/06/18 06:00 MCV 93.7 fl (80-96) 11/06/18 06:00 MCH 31.1 pg (25.7-33.7) 11/06/18 06:00 MCHC 33.2 g/dl (32.0-35.9) 11/06/18 06:00 RDW 14.4 % (11.9-15.9) 11/06/18 06:00 Plt Count 153 K/MM3 (134-434) D 11/06/18 06:00 MPV 10.1 fl (7.5-11.1) 11/06/18 06:00 Absolute Neuts (auto) 4.9 K/mm3 (1.5-8.0) 11/06/18 06:00 Neutrophils % 72.5 % (42.8-82.8) D 11/06/18 06:00 Neutrophils % (Manual) 84.7 % (42.8-82.8) H 11/05/18 12:26 Band Neutrophils % 6.1 % 11/05/18 12:26 Lymphocytes % 13.2 % (8-40) D 11/06/18 06:00 Lymphocytes % (Manual) 2.1 % (8-40) L 11/05/18 12:26 Monocytes % 10.1 % (3.8-10.2) 11/06/18 06:00 Monocytes % (Manual) 6 % (3.8-10.2) 11/05/18 12:26 Eosinophils % 3.9 % (0-4.5) D 11/06/18 06:00 Eosinophils % (Manual) 0.0 % (0-4.5) 11/05/18 12:26 Basophils % 0.3 % (0-2.0) 11/06/18 06:00 Basophils % (Manual) 0.0 % (0-2.0) 11/05/18 12:26 Myelocytes % (Man) 0 % (0-2) 11/05/18 12:26 Promyelocytes % (Man) 0 % (0-2) 11/05/18 12:26 Blast Cells % (Manual) 0 % (0-0) 11/05/18 12:26 Nucleated RBC % 0 % (0-0) 11/06/18 06:00 Metamyelocytes 0 % (0-2) 11/05/18 12:26 Hypochromia 0 11/05/18 12:26 Toxic Granulation 1+ 11/05/18 12:26 Platelet Estimate Normal 11/05/18 12:26 Polychromasia 0 11/05/18 12:26 Poikilocytosis 0 11/05/18 12:26 Anisocytosis 0 11/05/18 12:26 Microcytosis 0 11/05/18 12:26 Macrocytosis 1+ 11/05/18 12:26 Sodium 144 mmol/L (136-145) 11/06/18 06:00 Potassium 3.9 mmol/L (3.5-5.1) 11/06/18 06:00 Chloride 107 mmol/L (98-107) 11/06/18 06:00 Carbon Dioxide 28 mmol/L (21-32) 11/06/18 06:00 Anion Gap 9 MMOL/L (8-16) 11/06/18 06:00 BUN 22.3 mg/dL (7-18) H 11/06/18 06:00 Creatinine 0.8 mg/dL (0.55-1.3) 11/06/18 06:00 Est GFR (CKD-EPI)AfAm 94.41 11/06/18 06:00 Est GFR (CKD-EPI)NonAf 81.46 11/06/18 06:00 Random Glucose 78 mg/dL (74-106) 11/06/18 06:00 Lactic Acid 1.4 mmol/L (0.4-2.0) 11/05/18 12:26 Calcium 8.3 mg/dL (8.5-10.1) L 11/06/18 06:00 Phosphorus 2.7 mg/dL (2.5-4.9) 11/05/18 12:26 Magnesium 2.0 mg/dL (1.8-2.4) 11/05/18 12:26 Total Bilirubin 0.8 mg/dL (0.2-1) 11/06/18 06:00 Direct Bilirubin 0.3 mg/dL (0.0-0.2) H 11/06/18 06:00 AST 209 U/L (15-37) H 11/06/18 06:00 ALT 218 U/L (13-61) H 11/06/18 06:00 Alkaline Phosphatase 124 U/L (45-117) H 11/06/18 06:00 Troponin I < 0.02 ng/ml (0.00-0.05) 11/05/18 12:26 C-Reactive Protein 7.6 MG/DL (0.00-0.3) H 11/06/18 06:00 Total Protein 5.4 g/dl (6.4-8.2) L 11/06/18 06:00 Albumin 2.5 g/dl (3.4-5.0) L 11/06/18 06:00 Triglycerides 72 mg/dL (0-150) 11/06/18 06:00 Total Amylase 261 U/L (25-115) H 11/06/18 06:00 Lipase 423 U/L (73-393) H 11/06/18 06:00 CBC, BMP 11/06/18 06:00 11/06/18 06:00 Abnormal Lab Results 11/05/18 11/05/18 11/05/18 12:26 12:26 19:47 WBC 17.1 H RBC Hct Absolute Neuts (auto) 15.6 H Neutrophils % 91.6 H Neutrophils % (Manual) 84.7 H Lymphocytes % 2.2 L D Lymphocytes % (Manual) 2.1 L PT with INR INR BUN 24.8 H Random Glucose 113 H Calcium Direct Bilirubin AST 560 H ALT 358 H Alkaline Phosphatase 155 H C-Reactive Protein Total Protein Albumin 3.3 L Total Amylase Lipase 3128 H Ur Specific [place] 1.079 H Urine Ketones Trace H 11/06/18 11/06/18 11/06/18 06:00 06:00 11:05 WBC RBC 3.77 L Hct 35.3 L D Absolute Neuts (auto) Neutrophils % Neutrophils % (Manual) Lymphocytes % Lymphocytes % (Manual) PT with INR 13.10 H INR 1.11 H BUN 22.3 H Random Glucose Calcium 8.3 L Direct Bilirubin 0.3 H AST 209 H ALT 218 H Alkaline Phosphatase 124 H C-Reactive Protein 7.6 H Total Protein 5.4 L Albumin 2.5 L Total Amylase 261 H Lipase 423 H Ur Specific [place] Urine Ketones Hepatic Panel Total Bilirubin 0.8 mg/dL (0.2-1) 11/06/18 06:00 Direct Bilirubin 0.3 mg/dL (0.0-0.2) H 11/06/18 06:00 AST 209 U/L (15-37) H 11/06/18 06:00 ALT 218 U/L (13-61) H 11/06/18 06:00 Alkaline Phosphatase 124 U/L (45-117) H 11/06/18 06:00 Albumin 2.5 g/dl (3.4-5.0) L 11/06/18 06:00 Physical Examination Constitutional: Yes: No Distress, Calm and comfortable. Cardiovascular: Yes: Regular Rate and Rhythm Respiratory: Yes: Diminished Gastrointestinal: Yes: Normal Bowel Sounds, Soft, non tender. quiet Extremities: Yes: Other (contracted extremities, left leg-- dressing +) Edema: No Imaging - Results Chest X-ray: Image Reviewed Cat Scan: Report Reviewed Problem List - Problems (1) Hematemesis Code(s): K92.0 - HEMATEMESIS (2) Vomiting without nausea, intractable Code(s): R11.11 - VOMITING WITHOUT NAUSEA (3) Anxiety Code(s): F41.9 - ANXIETY DISORDER, UNSPECIFIED (4) COPD (chronic obstructive pulmonary disease) Code(s): J44.9 - CHRONIC OBSTRUCTIVE PULMONARY DISEASE, UNSPECIFIED Qualifiers: COPD type: COPD with acute lower respiratory infection Qualified Code(s): J44.0 - Chronic obstructive pulmonary disease with acute lower respiratory infection (5) Parkinsonism Code(s): G20 - PARKINSON'S DISEASE Assessment/Plan gallstone pancreatitis Better NPO IV fluids antibiotics DVT prophylaxis-- SCD protonix monitor labs Lfts trending down ERCP Likely need cholecystectomy will follow
[2018-11-06] MEDS ORDERED: ceFAZolin SODIUM 1 GM VIAL ONE (17:23)
[2018-11-06] MEDS ORDERED: DEXTROSE 5%-WATER - 50 ML IVPB ONE (17:24)
--- NOTE | 2018-11-06 21:58 | HOSP ---
Subjective - Review of Symptoms Events since last encounter: RN called [employer] for patient refusing to go for MRI schedule tonight, spoke to patient explained the importance for exam. However patient does not want to go for testing tonight, as per patient will go tomorrow. Rescheduled, patient will remain NPO. HEENT: No: Head Aches, Visual Changes, Eye Pain, Ear Pain, Dysphasia, Sinus Congestion, Post Nasal Drip, Sore Throat, Other Pulmonary: No: Dyspnea, Cough, Pleuritic Chest Pain, Other Cardiovascular: No: Chest Pain, Palpitations, Orthopnea, Paroxysmal Noc. Dyspnea , Edema, Light Headedness, Other Gastrointestinal: No: Nausea, NOSYM, Vomiting, Abdominal Pain, Diarrhea, Constipation, Melena, Hematochezia, Other Genitourinary: No: Dysuria, NOSYM, Frequency, Incontinence, Hematuria, Retention , Other Musculoskeletal: No: No Symptoms, Back Pain, Crepitus, Decreased ROM, Extremity Pain, Joint Pain, Joint Swelling, Muscle Pain, Muscle Cramps, Muscle Weakness, Other Neurological: No: Weakness, Numbness, Incoordination, Change in speech, Confusion, Seizures, Other Physical Examination Vital Signs: Vital Signs Temperature 98.4 F 11/06/18 18:12 Pulse Rate 84 11/06/18 18:12 Respiratory Rate 18 11/06/18 18:12 Blood Pressure 149/85 11/06/18 18:12 O2 Sat by Pulse Oximetry (%) 98 11/06/18 14:20 Constitutional: Yes: Calm Eyes: Yes: EOM Intact HENT: Yes: Atraumatic, Normocephalic Neck: Yes: Supple, Trachea Midline Cardiovascular: Yes: Regular Rate and Rhythm Respiratory: Yes: Regular, CTA Bilaterally Gastrointestinal: Yes: Normal Bowel Sounds, Soft Labs: CBC, BMP 11/06/18 06:00 11/06/18 06:00 Hospitalist Encounter Assessment: #Biliary pancreatitis -- Await MRCP -- Trial of clear liquids -- Continue antibiotics -- NPO -- PPI empirically -- GI discussed with patient possibility of ERCP
[2018-11-06] MEDS ORDERED: PT OWN MED DRAWER 7, Y5N ONE (22:00)
[2018-11-06] MEDS: rOPINIRole HCL 1 MG TABLET (FP) PO SCH (23:16)
[2018-11-06] MEDS: TAMSULOSIN HCL 0.4 MG CAP PO SCH (23:16)
[2018-11-07] MEDS ORDERED: ceFAZolin SODIUM 1 GM VIAL ONE ×3 (02:43→20:01)
[2018-11-07] MEDS ORDERED: DEXTROSE 5%-WATER - 50 ML IVPB ONE ×3 (02:44→20:01)
[2018-11-07] MEDS: CEFAZOLIN 1 GM in DEXTROSE 5%-WATER - 50 ML IVPB SCH ×3 (02:47→20:03)
[2018-11-07] MEDS: CARBIDOPA/LEVODOPA 10/100 TABLET (FP) PO SCH ×3 (05:58→21:42)
[2018-11-07] MEDS: LACTATED RINGERS SOLUTION 1,000 ML/1,000 ML INFUS.BAG IV SCH (06:00)
[2018-11-07] MEDS ORDERED: LACTATED RINGERS SOLUTION 1,000 ML/1,000 ML INFUS.BAG IV SCH (09:13)
[2018-11-07] MEDS: PANTOPRAZOLE SODIUM 40 MG VIAL IVPUSH SCH ×2 (09:51→21:42)
[2018-11-07] MEDS: FLUTICASONE/SALMETEROL 100 MCG/50 MCG DISKUS IH SCH ×2 (10:00→21:44)
--- NOTE | 2018-11-07 10:50 | PN ---
Progress Note (short form) - Note Progress Note: no complaints ate without problems Vital Signs - 24 hr 11/06/18 11/06/18 11/06/18 12:15 14:20 18:12 Temperature 97.9 F 98.1 F 98.4 F Pulse Rate 84 84 Pulse Rate [ 82 Left Radial] Respiratory 18 18 18 Rate Blood Pressure 141/65 149/85 Blood Pressure 122/68 [Right Arm] O2 Sat by Pulse 95 98 Oximetry (%) 11/06/18 11/07/18 11/07/18 21:00 02:00 06:00 Temperature 97.6 F 97.8 F Pulse Rate 83 85 Pulse Rate [ Left Radial] Respiratory 20 18 18 Rate Blood Pressure 117/60 121/64 Blood Pressure [Right Arm] O2 Sat by Pulse 98 Oximetry (%) Current Medications Generic Name Dose Route Start Last Admin Trade Name Freq PRN Reason Stop Dose Admin Carbidopa/Levodopa 2 each 11/05/18 22:00 11/07/18 05:58 Sinemet 10/100 - PO 2 each TID PETE Administration Cefazolin Sodium 1 gm/ 50 mls @ 100 mls/hr 11/05/18 18:00 11/07/18 09:59 Dextrose IVPB 100 mls/hr Q8H-IV PETE Administration Metronidazole 250 mg in 50 mls @ 50 mls/hr 11/05/18 18:00 11/07/18 02:47 Flagyl 250mg Premixed Ivpb - IVPB 50 mls/hr Q8H-IV PETE Administration Lactated Ringer's 1,000 ml in 1,000 mls @ 50 mls/hr 11/07/18 09:13 11/07/18 09:58 Lactated Ringers Solution IV 50 mls/hr ASDIR PETE Administration Pantoprazole Sodium 40 mg 11/05/18 22:00 11/07/18 09:51 Protonix Iv IVPUSH 40 mg BID PETE Administration Ropinirole HCl 1 mg 11/05/18 22:00 11/06/18 23:16 Requip - PO 1 mg HS PETE Administration Fluticasone/Salmeterol 1 puff 11/05/18 22:00 11/07/18 10:00 Advair 100mcg/50mcg - IH 1 puff BID PETE Administration Tamsulosin HCl 0.8 mg 11/05/18 22:00 11/06/18 23:16 Flomax - PO 0.8 mg HS PETE Administration Laboratory Results - last 24 hr 11/06/18 11:05 PT with INR 13.10 H INR 1.11 H S1 S2 RRR Lungs decreased Abd-soft , nT no edema PLAN pt agreeing for MRCP Problem List - Problems (1) Hematemesis Code(s): K92.0 - HEMATEMESIS (2) Vomiting without nausea, intractable Code(s): R11.11 - VOMITING WITHOUT NAUSEA (3) Anxiety Code(s): F41.9 - ANXIETY DISORDER, UNSPECIFIED (4) COPD (chronic obstructive pulmonary disease) Code(s): J44.9 - CHRONIC OBSTRUCTIVE PULMONARY DISEASE, UNSPECIFIED Qualifiers: COPD type: COPD with acute lower respiratory infection Qualified Code(s): J44.0 - Chronic obstructive pulmonary disease with acute lower respiratory infection (5) Parkinsonism Code(s): G20 - PARKINSON'S DISEASE
[2018-11-07] MEDS ORDERED: PT OWN MED DRAWER 7, Y5N ONE ×3 (13:57→21:19)
--- NOTE | 2018-11-07 18:02 | PN.GI ---
GI Progress Note Subjective: GI NOte: Refused blood testing today. Refused MRCP last night. Denies pain and is hungry. - Objective Vital Signs: Vital Signs Temperature 98.5 F 11/07/18 14:06 Pulse Rate 81 11/07/18 14:06 Respiratory Rate 18 11/07/18 14:06 Blood Pressure 124/83 11/07/18 14:06 O2 Sat by Pulse Oximetry (%) 98 11/07/18 11:05 Constitutional: Calm ...Auscultate: Yes: Hypoactive Bowel Sounds ...Palpate: Yes: Soft, Other (nontender) Labs: CBC, BMP 11/06/18 06:00 11/06/18 06:00 INR, PTT INR 1.11 (0.83-1.09) H 11/06/18 11:05 Assessment/Plan Assessment: - Biliary pancreatitis. Suspect that the CBD stone has passed. I discussed the importance of an MRCP - I doubt a GI bleed and believe Hb drop is hydrational Plan: -- Await MRCP - he is now agreeable -- Trial of soft diet -- IV fluids to be decreased -- Continue antibiotics -- ERCP only if necessary -- I have also discussed the need for the need to cholecystecotmy to prevent recurrent biliary pancreatitis and/or ascending cholangitis -- Continue PPI empirically Problem List - Problems (1) Vomiting without nausea, intractable Code(s): R11.11 - VOMITING WITHOUT NAUSEA (2) Pancreatitis Code(s): K85.90 - ACUTE PANCREATITIS WITHOUT NECROSIS OR INFECTION, UNSP Qualifiers: Chronicity: acute Pancreatitis type: unspecified pancreatitis type Acute pancreatitis complication: unspecified Qualified Code(s): K85.90 - Acute pancreatitis without necrosis or infection, unspecified (3) Hematemesis Code(s): K92.0 - HEMATEMESIS (4) Skin cancer Code(s): C44.90 - UNSPECIFIED MALIGNANT NEOPLASM OF SKIN, UNSPECIFIED (5) COPD (chronic obstructive pulmonary disease) Code(s): J44.9 - CHRONIC OBSTRUCTIVE PULMONARY DISEASE, UNSPECIFIED Qualifiers: COPD type: COPD with acute lower respiratory infection Qualified Code(s): J44.0 - Chronic obstructive pulmonary disease with acute lower respiratory infection (6) Parkinsonism Code(s): G20 - PARKINSON'S DISEASE
[2018-11-07] MEDS: TAMSULOSIN HCL 0.4 MG CAP PO SCH (21:42)
[2018-11-07] MEDS: rOPINIRole HCL 1 MG TABLET (FP) PO SCH (21:42)
[2018-11-08] MEDS ORDERED: ceFAZolin SODIUM 1 GM VIAL ONE ×2 (02:37→11:11)
[2018-11-08] MEDS ORDERED: DEXTROSE 5%-WATER - 50 ML IVPB ONE ×2 (02:37→11:11)
[2018-11-08] MEDS: CEFAZOLIN 1 GM in DEXTROSE 5%-WATER - 50 ML IVPB SCH ×2 (02:52→12:39)
[2018-11-08] MEDS: CARBIDOPA/LEVODOPA 10/100 TABLET (FP) PO SCH ×3 (05:49→22:07)
[2018-11-08 07:37] LABS: BASO % 0.2 % (0-2.0); HEMATOCRIT 32.1 % (35.4-49); HEMOGLOBIN 10.8 GM/dL (11.7-16.9); LYMPH % 16.1 % (8-40); MCH 31.2 pg (25.7-33.7); MCHC 33.7 g/dl (32.0-35.9); MEAN CELL VOLUME 92.6 fl (80-96); MEAN PLT VOLUME 10.1 fl (7.5-11.1); NEUT % 67.7 % (42.8-82.8); PLATELET COUNT 149 K/MM3 (134-434); RBC 3.46 M/mm3 (4.00-5.60); WHITE BLOOD COUNT 5.4 K/mm3 (4.0-10.0)
[2018-11-08 08:06] LABS: ALBUMIN 2.5 g/dl (3.4-5.0); BILIRUBIN,DIRECT 0.1 mg/dL (0.0-0.2); BILIRUBIN,TOTAL 0.3 mg/dL (0.2-1); BLOOD UREA NITROGEN 8.8 mg/dL (7-18); CALCIUM 8.6 mg/dL (8.5-10.1); CREATININE 0.6 mg/dL (0.55-1.3); POTASSIUM 3.8 mmol/L (3.5-5.1); TOT PROT 5.2 g/dl (6.4-8.2)
[2018-11-08] MEDS ORDERED: PT OWN MED DRAWER 7, Y5N ONE ×2 (11:09→14:50)
--- NOTE | 2018-11-08 11:43 | PN ---
Progress Note (short form) - Note Progress Note: no complaints ate without problems ate solid food refused MRCP yesterday Vital Signs - 24 hr 11/07/18 11/07/18 11/07/18 14:06 18:00 21:00 Temperature 98.5 F 97.9 F Pulse Rate 81 84 Respiratory 18 18 16 Rate Blood Pressure 124/83 133/62 O2 Sat by Pulse 97 Oximetry (%) 11/08/18 05:32 Temperature 97.9 F Pulse Rate 86 Respiratory 18 Rate Blood Pressure 137/66 O2 Sat by Pulse Oximetry (%) Current Medications Generic Name Dose Route Start Last Admin Trade Name Freq PRN Reason Stop Dose Admin Carbidopa/Levodopa 2 each 11/05/18 22:00 11/08/18 05:49 Sinemet 10/100 - PO 2 each TID PETE Administration Cefazolin Sodium 1 gm/ 50 mls @ 100 mls/hr 11/05/18 18:00 11/08/18 02:52 Dextrose IVPB 100 mls/hr Q8H-IV PETE Administration Metronidazole 250 mg in 50 mls @ 50 mls/hr 11/05/18 18:00 11/08/18 11:28 Flagyl 250mg Premixed Ivpb - IVPB 50 mls/hr Q8H-IV PETE Administration Lactated Ringer's 1,000 ml in 1,000 mls @ 50 mls/hr 11/07/18 09:13 11/07/18 09:58 Lactated Ringers Solution IV 50 mls/hr ASDIR PETE Administration Pantoprazole Sodium 40 mg 11/05/18 22:00 11/07/18 21:42 Protonix Iv IVPUSH 40 mg BID PETE Administration Ropinirole HCl 1 mg 11/05/18 22:00 11/07/18 21:42 Requip - PO 1 mg HS PETE Administration Fluticasone/Salmeterol 1 puff 11/05/18 22:00 11/07/18 21:44 Advair 100mcg/50mcg - IH 1 puff BID PETE Administration Tamsulosin HCl 0.8 mg 11/05/18 22:00 11/07/18 21:42 Flomax - PO 0.8 mg HS PETE Administration Laboratory Results - last 24 hr 11/08/18 11/08/18 06:30 06:30 WBC 5.4 RBC 3.46 L Hgb 10.8 L Hct 32.1 L MCV 92.6 MCH 31.2 MCHC 33.7 RDW 14.0 Plt Count 149 MPV 10.1 Absolute Neuts (auto) 3.6 Neutrophils % 67.7 Lymphocytes % 16.1 D Monocytes % 11.0 H Eosinophils % 5.0 H Basophils % 0.2 Nucleated RBC % 0 Sodium 142 Potassium 3.8 Chloride 105 Carbon Dioxide 31 Anion Gap 6 L BUN 8.8 Creatinine 0.6 Est GFR (CKD-EPI)AfAm 106.26 Est GFR (CKD-EPI)NonAf 91.68 Random Glucose 94 Calcium 8.6 Total Bilirubin 0.3 Direct Bilirubin 0.1 AST 57 H ALT 39 Alkaline Phosphatase 120 H C-Reactive Protein 5.5 H Total Protein 5.2 L Albumin 2.5 L Total Amylase 88 Lipase 241 S1 S2 RRR Lungs decreased Abd- soft, NT no edema PLAN LFT improving pt is agreeing to MRCP Does not want ERCP dc fluids Problem List - Problems (1) Hematemesis Code(s): K92.0 - HEMATEMESIS (2) Vomiting without nausea, intractable Code(s): R11.11 - VOMITING WITHOUT NAUSEA (3) Anxiety Code(s): F41.9 - ANXIETY DISORDER, UNSPECIFIED (4) COPD (chronic obstructive pulmonary disease) Code(s): J44.9 - CHRONIC OBSTRUCTIVE PULMONARY DISEASE, UNSPECIFIED Qualifiers: COPD type: COPD with acute lower respiratory infection Qualified Code(s): J44.0 - Chronic obstructive pulmonary disease with acute lower respiratory infection (5) Parkinsonism Code(s): G20 - PARKINSON'S DISEASE
[2018-11-08] MEDS: PANTOPRAZOLE SODIUM 40 MG VIAL IVPUSH SCH (12:40)
[2018-11-08] MEDS: FLUTICASONE/SALMETEROL 100 MCG/50 MCG DISKUS IH SCH ×2 (12:46→22:08)
--- NOTE | 2018-11-08 13:06 | PN.GI ---
GI Progress Note Subjective: GI NOte Tolerating diet. No pain or vomiting. LFTs and CRP normalizing. Discussed need to have MRCP to exclude a residual bobbing stone. Also discussed the anemia and residual GB stones and that ideally he should have a cholecystectomy to avoid recurrent biliary pancreatitis and ascending cholangitis and that he should ideally have an EGD and a colonoscopy to exclude GI tract malignancy and ulcers - Objective Vital Signs: Vital Signs Temperature 97.9 F 11/08/18 05:32 Pulse Rate 86 11/08/18 05:32 Respiratory Rate 18 11/08/18 05:32 Blood Pressure 137/66 11/08/18 05:32 O2 Sat by Pulse Oximetry (%) 97 11/07/18 21:00 Laboratory Tests 11/05/18 11/05/18 11/06/18 12:26 12:26 06:00 WBC 17.1 H Hgb Total Bilirubin 1.0 AST 560 H ALT 358 H Alkaline Phosphatase 155 H C-Reactive Protein 7.6 H Total Amylase Lipase 3128 H 11/08/18 11/08/18 06:30 06:30 WBC 5.4 Hgb 10.8 L Total Bilirubin 0.3 AST 57 H ALT 39 Alkaline Phosphatase 120 H C-Reactive Protein 5.5 H Total Amylase 88 Lipase 241 Constitutional: Calm ...Auscultate: Yes: Normoactive Bowel Sounds ...Palpate: Yes: Soft, Other (nontender) Labs: CBC, BMP 11/08/18 06:30 11/08/18 06:30 INR, PTT INR 1.11 (0.83-1.09) H 11/06/18 11:05 Assessment/Plan Assessment: - Biliary pancreatitis resolving. R/O residual CBD stone. Has residual CBD stones - Anemia Plan: -- Await MRCP - he is still agreeable -- Continue soft diet -- Will stop IV fluids -- Will stop antibiotics as cultures have no growth -- ERCP only if necessary -- EGD, colonoscopy and cholecystecotmy refused Problem List - Problems (1) Biliary acute pancreatitis Code(s): K85.10 - BILIARY ACUTE PANCREATITIS WITHOUT NECROSIS OR INFECTION (2) Anemia Code(s): D64.9 - ANEMIA, UNSPECIFIED (3) Vomiting without nausea, intractable Code(s): R11.11 - VOMITING WITHOUT NAUSEA (4) Pancreatitis Code(s): K85.90 - ACUTE PANCREATITIS WITHOUT NECROSIS OR INFECTION, UNSP Qualifiers: Chronicity: acute Pancreatitis type: unspecified pancreatitis type Acute pancreatitis complication: unspecified Qualified Code(s): K85.90 - Acute pancreatitis without necrosis or infection, unspecified (5) Hematemesis Code(s): K92.0 - HEMATEMESIS (6) Skin cancer Code(s): C44.90 - UNSPECIFIED MALIGNANT NEOPLASM OF SKIN, UNSPECIFIED (7) COPD (chronic obstructive pulmonary disease) Code(s): J44.9 - CHRONIC OBSTRUCTIVE PULMONARY DISEASE, UNSPECIFIED Qualifiers: COPD type: COPD with acute lower respiratory infection Qualified Code(s): J44.0 - Chronic obstructive pulmonary disease with acute lower respiratory infection (8) Parkinsonism Code(s): G20 - PARKINSON'S DISEASE
[2018-11-08] MEDS: rOPINIRole HCL 1 MG TABLET (FP) PO SCH (22:07)
[2018-11-08] MEDS: URSODIOL 300 MG CAPSULE PO SCH (22:07)
[2018-11-08] MEDS: TAMSULOSIN HCL 0.4 MG CAP PO SCH (22:07)
[2018-11-09] MEDS: CARBIDOPA/LEVODOPA 10/100 TABLET (FP) PO SCH ×3 (05:30→21:38)
[2018-11-09] MEDS: FLUTICASONE/SALMETEROL 100 MCG/50 MCG DISKUS IH SCH ×2 (09:48→23:29)
[2018-11-09] MEDS: URSODIOL 300 MG CAPSULE PO SCH ×2 (09:48→21:37)
[2018-11-09] MEDS: PANTOPRAZOLE 40 MG TABLET (FP) PO SCH (09:48)
--- NOTE | 2018-11-09 11:57 | PN ---
Progress Note (short form) - Note Progress Note: no complaints ate without problems ate solid food Vital Signs - 24 hr 11/08/18 11/08/18 11/08/18 15:12 18:04 21:00 Temperature 98.6 F 98.8 F Pulse Rate 84 86 Respiratory 20 20 20 Rate Blood Pressure 128/62 140/68 O2 Sat by Pulse 97 Oximetry (%) 11/08/18 11/09/18 22:00 06:13 Temperature 98.4 F Pulse Rate 80 86 Respiratory 20 20 Rate Blood Pressure 140/71 127/66 O2 Sat by Pulse Oximetry (%) Current Medications Generic Name Dose Route Start Last Admin Trade Name Freq PRN Reason Stop Dose Admin Carbidopa/Levodopa 2 each 11/05/18 22:00 11/09/18 05:30 Sinemet 10/100 - PO 2 each TID PETE Administration Pantoprazole Sodium 40 mg 11/09/18 10:00 11/09/18 09:48 Protonix - PO 40 mg DAILY PETE Administration Ropinirole HCl 1 mg 11/05/18 22:00 11/08/18 22:07 Requip - PO 1 mg HS PETE Administration Fluticasone/Salmeterol 1 puff 11/05/18 22:00 11/09/18 09:48 Advair 100mcg/50mcg - IH 1 puff BID PETE Administration Tamsulosin HCl 0.8 mg 11/05/18 22:00 11/08/18 22:07 Flomax - PO 0.8 mg HS PETE Administration Ursodiol 300 mg 11/08/18 22:00 11/09/18 09:48 Actigal - PO 300 mg BID PETE Administration S1 S2 RRR Lungs decreased Abd- soft, NT no edema PLAN LFT improving pt is agreeing to MRCP Does not want ERCP dc fluids Problem List - Problems (1) Hematemesis Code(s): K92.0 - HEMATEMESIS (2) Vomiting without nausea, intractable Code(s): R11.11 - VOMITING WITHOUT NAUSEA (3) Anxiety Code(s): F41.9 - ANXIETY DISORDER, UNSPECIFIED (4) COPD (chronic obstructive pulmonary disease) Code(s): J44.9 - CHRONIC OBSTRUCTIVE PULMONARY DISEASE, UNSPECIFIED Qualifiers: COPD type: COPD with acute lower respiratory infection Qualified Code(s): J44.0 - Chronic obstructive pulmonary disease with acute lower respiratory infection (5) Parkinsonism Code(s): G20 - PARKINSON'S DISEASE
[2018-11-09] MEDS ORDERED: PT OWN MED DRAWER 7, Y5N ONE (14:16)
[2018-11-09] MEDS: rOPINIRole HCL 1 MG TABLET (FP) PO SCH (21:37)
[2018-11-09] MEDS: TAMSULOSIN HCL 0.4 MG CAP PO SCH (21:37)
--- NOTE | 2018-11-09 22:47 | PN.GI ---
GI Progress Note Subjective: GI NOte: I have reviewed the MRCP ( not officially read yet) and informed Ismael that he has several CBD stones and will need the ERCP tomorrow. I reiterated the risks involved and he is again agreeable to this. I have discussed his DNR status and he wants this reversed during the ERCP procedure. - Objective Vital Signs: Vital Signs Temperature 98.2 F 11/09/18 21:20 Pulse Rate 83 11/09/18 21:20 Respiratory Rate 18 11/09/18 18:30 Blood Pressure 155/84 11/09/18 21:20 O2 Sat by Pulse Oximetry (%) 95 11/09/18 09:00 Laboratory Tests 11/05/18 11/06/18 11/08/18 12:26 11:05 06:30 PT with INR 13.10 H Total Bilirubin 0.3 AST 560 H 57 H ALT 358 H 39 Alkaline Phosphatase 155 H 120 H Lipase 3128 H 241 Constitutional: No Distress ...Auscultate: Yes: Normoactive Bowel Sounds ...Palpate: Yes: Soft, Other (nontender) Labs: CBC, BMP 11/08/18 06:30 11/08/18 06:30 INR, PTT INR 1.11 (0.83-1.09) H 11/06/18 11:05 Assessment/Plan Assessment: - Biliary pancreatitis resolving. MRCP reveals CBD stones. - Anemia Plan: -- For ERCP tomorrow. Will rescind DNR for this procedure as per patient's stated wishes -- Will resume antibiotics Problem List - Problems (1) Biliary acute pancreatitis Code(s): K85.10 - BILIARY ACUTE PANCREATITIS WITHOUT NECROSIS OR INFECTION (2) Anemia Code(s): D64.9 - ANEMIA, UNSPECIFIED (3) Vomiting without nausea, intractable Code(s): R11.11 - VOMITING WITHOUT NAUSEA (4) Pancreatitis Code(s): K85.90 - ACUTE PANCREATITIS WITHOUT NECROSIS OR INFECTION, UNSP Qualifiers: Chronicity: acute Pancreatitis type: unspecified pancreatitis type Acute pancreatitis complication: unspecified Qualified Code(s): K85.90 - Acute pancreatitis without necrosis or infection, unspecified (5) Hematemesis Code(s): K92.0 - HEMATEMESIS (6) Skin cancer Code(s): C44.90 - UNSPECIFIED MALIGNANT NEOPLASM OF SKIN, UNSPECIFIED (7) COPD (chronic obstructive pulmonary disease) Code(s): J44.9 - CHRONIC OBSTRUCTIVE PULMONARY DISEASE, UNSPECIFIED Qualifiers: COPD type: COPD with acute lower respiratory infection Qualified Code(s): J44.0 - Chronic obstructive pulmonary disease with acute lower respiratory infection (8) Parkinsonism Code(s): G20 - PARKINSON'S DISEASE
[2018-11-09] MEDS ORDERED: LACTATED RINGERS SOLUTION 1,000 ML/1,000 ML INFUS.BAG IV SCH (23:00)
[2018-11-10] MEDS ORDERED: ceFAZolin SODIUM 1 GM VIAL ONE ×3 (01:05→17:45)
[2018-11-10] MEDS ORDERED: DEXTROSE 5%-WATER - 50 ML IVPB ONE ×3 (01:06→17:45)
[2018-11-10] MEDS: CEFAZOLIN 1 GM in DEXTROSE 5%-WATER - 50 ML IVPB SCH ×3 (01:35→17:58)
[2018-11-10] MEDS: CARBIDOPA/LEVODOPA 10/100 TABLET (FP) PO SCH ×3 (05:41→21:38)
[2018-11-10] MEDS: PANTOPRAZOLE 40 MG TABLET (FP) PO SCH (09:32)
[2018-11-10] MEDS: FLUTICASONE/SALMETEROL 100 MCG/50 MCG DISKUS IH SCH ×2 (09:32→21:39)
--- NOTE | 2018-11-10 10:07 | PN ---
Progress Note (short form) - Note Progress Note: pt seen/ examined feels well all f/u noted ERCP today lfts coming down Vital Signs Temp 98.7 F 11/10/18 06:00 Pulse 87 11/10/18 06:00 Resp 18 11/10/18 06:00 BP 132/63 11/10/18 06:00 Pulse Ox 95 11/09/18 21:00 Intake & Output 11/09/18 11/09/18 11/10/18 11:59 23:59 11:59 Intake Total 960 550 Balance 960 550 Intake: IV 400 LACTATED RINGERS SOLUTION 400 1,000 ml In 1,000 ml @ 75 mls/hr IV ASDIR PETE Rx #:[id number] IVPB 150 Oral 960 Other: Voiding Method Diaper Diaper # Unmeasured Voids Void 2 1 Bowel Movement No Active Medications Carbidopa/Levodopa (Sinemet 10/100 -) 2 each PO TID PETE Last Admin: 11/10/18 05:41 Dose: Not Given Cefazolin Sodium 1 gm/ (Dextrose) 50 mls @ 100 mls/hr IVPB Q8H-IV [facility] Last Admin: 11/10/18 09:32 Dose: 100 mls/hr Metronidazole (Flagyl 500mg Premixed Ivpb -) 500 mg in 100 mls @ 100 mls/hr IVPB Q8H-IV [facility] Last Admin: 11/10/18 02:25 Dose: 100 mls/hr Lactated Ringer's (Lactated Ringers Solution) 1,000 ml in 1,000 mls @ 75 mls/ hr IV ASDIR [facility]E Last Admin: 11/09/18 23:29 Dose: 75 mls/hr Pantoprazole Sodium (Protonix -) 40 mg PO DAILY [facility]E Last Admin: 11/10/18 09:32 Dose: 40 mg Ropinirole HCl (Requip -) 1 mg PO HS [facility] Last Admin: 11/09/18 21:37 Dose: 1 mg Fluticasone/Salmeterol (Advair 100mcg/50mcg -) 1 puff IH BID PETE Last Admin: 11/10/18 09:32 Dose: 1 puff Tamsulosin HCl (Flomax -) 0.8 mg PO HS [facility] Last Admin: 11/09/18 21:37 Dose: 0.8 mg Ursodiol (Actigal -) 300 mg PO BID PETE Last Admin: 11/09/18 21:37 Dose: 300 mg CBC,CMP WBC 5.4 K/mm3 (4.0-10.0) 11/08/18 06:30 RBC 3.46 M/mm3 (4.00-5.60) L 11/08/18 06:30 Hgb 10.8 GM/dL (11.7-16.9) L 11/08/18 06:30 Hct 32.1 % (35.4-49) L 11/08/18 06:30 MCV 92.6 fl (80-96) 11/08/18 06:30 MCH 31.2 pg (25.7-33.7) 11/08/18 06:30 MCHC 33.7 g/dl (32.0-35.9) 11/08/18 06:30 RDW 14.0 % (11.9-15.9) 11/08/18 06:30 Plt Count 149 K/MM3 (134-434) 11/08/18 06:30 MPV 10.1 fl (7.5-11.1) 11/08/18 06:30 Absolute Neuts (auto) 3.6 K/mm3 (1.5-8.0) 11/08/18 06:30 Neutrophils % 67.7 % (42.8-82.8) 11/08/18 06:30 Neutrophils % (Manual) 84.7 % (42.8-82.8) H 11/05/18 12:26 Band Neutrophils % 6.1 % 11/05/18 12:26 Lymphocytes % 16.1 % (8-40) D 11/08/18 06:30 Lymphocytes % (Manual) 2.1 % (8-40) L 11/05/18 12:26 Monocytes % 11.0 % (3.8-10.2) H 11/08/18 06:30 Monocytes % (Manual) 6 % (3.8-10.2) 11/05/18 12:26 Eosinophils % 5.0 % (0-4.5) H 11/08/18 06:30 Eosinophils % (Manual) 0.0 % (0-4.5) 11/05/18 12:26 Basophils % 0.2 % (0-2.0) 11/08/18 06:30 Basophils % (Manual) 0.0 % (0-2.0) 11/05/18 12:26 Myelocytes % (Man) 0 % (0-2) 11/05/18 12:26 Promyelocytes % (Man) 0 % (0-2) 11/05/18 12:26 Blast Cells % (Manual) 0 % (0-0) 11/05/18 12:26 Nucleated RBC % 0 % (0-0) 11/08/18 06:30 Metamyelocytes 0 % (0-2) 11/05/18 12:26 Hypochromia 0 11/05/18 12:26 Toxic Granulation 1+ 11/05/18 12:26 Platelet Estimate Normal 11/05/18 12:26 Polychromasia 0 11/05/18 12:26 Poikilocytosis 0 11/05/18 12:26 Anisocytosis 0 11/05/18 12:26 Microcytosis 0 11/05/18 12:26 Macrocytosis 1+ 11/05/18 12:26 Sodium 142 mmol/L (136-145) 11/08/18 06:30 Potassium 3.8 mmol/L (3.5-5.1) 11/08/18 06:30 Chloride 105 mmol/L (98-107) 11/08/18 06:30 Carbon Dioxide 31 mmol/L (21-32) 11/08/18 06:30 Anion Gap 6 MMOL/L (8-16) L 11/08/18 06:30 BUN 8.8 mg/dL (7-18) 11/08/18 06:30 Creatinine 0.6 mg/dL (0.55-1.3) 11/08/18 06:30 Est GFR (CKD-EPI)AfAm 106.26 11/08/18 06:30 Est GFR (CKD-EPI)NonAf 91.68 11/08/18 06:30 Random Glucose 94 mg/dL (74-106) 11/08/18 06:30 Lactic Acid 1.4 mmol/L (0.4-2.0) 11/05/18 12:26 Calcium 8.6 mg/dL (8.5-10.1) 11/08/18 06:30 Phosphorus 2.7 mg/dL (2.5-4.9) 11/05/18 12:26 Magnesium 2.0 mg/dL (1.8-2.4) 11/05/18 12:26 Total Bilirubin 0.3 mg/dL (0.2-1) 11/08/18 06:30 Direct Bilirubin 0.1 mg/dL (0.0-0.2) 11/08/18 06:30 AST 57 U/L (15-37) H 11/08/18 06:30 ALT 39 U/L (13-61) 11/08/18 06:30 Alkaline Phosphatase 120 U/L (45-117) H 11/08/18 06:30 Troponin I < 0.02 ng/ml (0.00-0.05) 11/05/18 12:26 C-Reactive Protein 5.5 MG/DL (0.00-0.3) H 11/08/18 06:30 Total Protein 5.2 g/dl (6.4-8.2) L 11/08/18 06:30 Albumin 2.5 g/dl (3.4-5.0) L 11/08/18 06:30 Triglycerides 72 mg/dL (0-150) 11/06/18 06:00 Total Amylase 88 U/L (25-115) 11/08/18 06:30 Lipase 241 U/L (73-393) 11/08/18 06:30 Physical Exam Awake/ comfortable S1 S2 RRR Lungs decreased Abd- soft, NT no edema PLAN LFT improving pt is agreeing to ERCP-- today DNR to be resended during procedure will follow d/w Rn also Problem List - Problems (1) Hematemesis Code(s): K92.0 - HEMATEMESIS (2) Vomiting without nausea, intractable Code(s): R11.11 - VOMITING WITHOUT NAUSEA (3) Anxiety Code(s): F41.9 - ANXIETY DISORDER, UNSPECIFIED (4) COPD (chronic obstructive pulmonary disease) Code(s): J44.9 - CHRONIC OBSTRUCTIVE PULMONARY DISEASE, UNSPECIFIED Qualifiers: COPD type: COPD with acute lower respiratory infection Qualified Code(s): J44.0 - Chronic obstructive pulmonary disease with acute lower respiratory infection (5) Parkinsonism Code(s): G20 - PARKINSON'S DISEASE
[2018-11-10 10:13] LABS: ALBUMIN 2.6 g/dl (3.4-5.0); BILIRUBIN,TOTAL 0.2 mg/dL (0.2-1); BLOOD UREA NITROGEN 12.9 mg/dL (7-18); CALCIUM 8.9 mg/dL (8.5-10.1); CREATININE 0.6 mg/dL (0.55-1.3); POTASSIUM 4.1 mmol/L (3.5-5.1); TOT PROT 5.3 g/dl (6.4-8.2)
[2018-11-10] MEDS ORDERED: SEVOFLURANE 250 ML BTL ONE (12:15)
--- NOTE | 2018-11-10 12:30 | PN ---
Progress Note (short form) - Note Progress Note: GI preop note. MRCP reviewed with Dr Mayo , Cannot exclude CBD stones. As per Mr Ha's directive the DNR is rescinded for this ERCP. Problem List - Problems (1) Biliary acute pancreatitis Code(s): K85.10 - BILIARY ACUTE PANCREATITIS WITHOUT NECROSIS OR INFECTION (2) Anemia Code(s): D64.9 - ANEMIA, UNSPECIFIED (3) Vomiting without nausea, intractable Code(s): R11.11 - VOMITING WITHOUT NAUSEA (4) Pancreatitis Code(s): K85.90 - ACUTE PANCREATITIS WITHOUT NECROSIS OR INFECTION, UNSP Qualifiers: Chronicity: acute Pancreatitis type: unspecified pancreatitis type Acute pancreatitis complication: unspecified Qualified Code(s): K85.90 - Acute pancreatitis without necrosis or infection, unspecified (5) Hematemesis Code(s): K92.0 - HEMATEMESIS (6) Skin cancer Code(s): C44.90 - UNSPECIFIED MALIGNANT NEOPLASM OF SKIN, UNSPECIFIED (7) COPD (chronic obstructive pulmonary disease) Code(s): J44.9 - CHRONIC OBSTRUCTIVE PULMONARY DISEASE, UNSPECIFIED Qualifiers: COPD type: COPD with acute lower respiratory infection Qualified Code(s): J44.0 - Chronic obstructive pulmonary disease with acute lower respiratory infection (8) Parkinsonism Code(s): G20 - PARKINSON'S DISEASE
[2018-11-10] MEDS ORDERED: ESMOLOL HCL 100,000 MCG/10 ML VIAL ONE (12:47)
[2018-11-10] MEDS ORDERED: IOHEXOL 300 MG/ML INFUS..BTL IV ONE (12:59)
[2018-11-10] MEDS ORDERED: LACTATED RINGERS SOLUTION 1,000 ML/1,000 ML INFUS.BAG IV SCH ×2 (13:30→18:00)
--- NOTE | 2018-11-10 13:42 | PN ---
Progress Note (short form) - Note Progress Note: GI procedure note: Please see ERCP report. Three CBD stones were removed after a sphincterotomy was made. Retrograde cholangiogram revealed no residual CBD stones. Given the multiple residual GB and cystic duct stones a cholecystectomy should be performed if Mr Bonner consents. As per Mr Bonner's directive the DNR will be reinstated. Dr Babcock will be covering this weekend. Problem List - Problems (1) Biliary acute pancreatitis Code(s): K85.10 - BILIARY ACUTE PANCREATITIS WITHOUT NECROSIS OR INFECTION (2) Anemia Code(s): D64.9 - ANEMIA, UNSPECIFIED (3) Vomiting without nausea, intractable Code(s): R11.11 - VOMITING WITHOUT NAUSEA (4) Pancreatitis Code(s): K85.90 - ACUTE PANCREATITIS WITHOUT NECROSIS OR INFECTION, UNSP Qualifiers: Chronicity: acute Pancreatitis type: unspecified pancreatitis type Acute pancreatitis complication: unspecified Qualified Code(s): K85.90 - Acute pancreatitis without necrosis or infection, unspecified (5) Hematemesis Code(s): K92.0 - HEMATEMESIS (6) Skin cancer Code(s): C44.90 - UNSPECIFIED MALIGNANT NEOPLASM OF SKIN, UNSPECIFIED (7) COPD (chronic obstructive pulmonary disease) Code(s): J44.9 - CHRONIC OBSTRUCTIVE PULMONARY DISEASE, UNSPECIFIED Qualifiers: COPD type: COPD with acute lower respiratory infection Qualified Code(s): J44.0 - Chronic obstructive pulmonary disease with acute lower respiratory infection (8) Parkinsonism Code(s): G20 - PARKINSON'S DISEASE
[2018-11-10] MEDS ORDERED: PT OWN MED DRAWER 7, Y5N ONE ×3 (15:59→21:34)
[2018-11-10] MEDS: URSODIOL 300 MG CAPSULE PO SCH ×2 (16:05→21:38)
[2018-11-10] MEDS: rOPINIRole HCL 1 MG TABLET (FP) PO SCH (21:38)
[2018-11-10] MEDS: TAMSULOSIN HCL 0.4 MG CAP PO SCH (21:38)
[2018-11-11] MEDS ORDERED: LACTATED RINGERS SOLUTION 1,000 ML/1,000 ML INFUS.BAG IV SCH (01:00)
[2018-11-11] MEDS ORDERED: ceFAZolin SODIUM 1 GM VIAL ONE ×3 (01:47→17:32)
[2018-11-11] MEDS ORDERED: DEXTROSE 5%-WATER - 50 ML IVPB ONE ×3 (01:48→17:32)
[2018-11-11] MEDS: CEFAZOLIN 1 GM in DEXTROSE 5%-WATER - 50 ML IVPB SCH ×3 (03:20→19:37)
[2018-11-11] MEDS ORDERED: PT OWN MED DRAWER 7, Y5N ONE ×4 (05:18→22:37)
[2018-11-11] MEDS: CARBIDOPA/LEVODOPA 10/100 TABLET (FP) PO SCH ×3 (06:19→23:19)
[2018-11-11 09:34] LABS: BASO % 0.1 % (0-2.0); EOS % 0.1 % (0-4.5); HEMATOCRIT 32.5 % (35.4-49); HEMOGLOBIN 10.8 GM/dL (11.7-16.9); LYMPH % 11.4 % (8-40); MCH 30.9 pg (25.7-33.7); MCHC 33.2 g/dl (32.0-35.9); MEAN PLT VOLUME 9.5 fl (7.5-11.1); MONO % 8.5 % (3.8-10.2); NEUT % 79.9 % (42.8-82.8); PLATELET COUNT 220 K/MM3 (134-434); RDW 13.9 % (11.9-15.9); WHITE BLOOD COUNT 10.6 K/mm3 (4.0-10.0)
[2018-11-11 09:56] LABS: ALBUMIN 2.5 g/dl (3.4-5.0); BILIRUBIN,DIRECT 0.1 mg/dL (0.0-0.2); BILIRUBIN,TOTAL 0.5 mg/dL (0.2-1); BLOOD UREA NITROGEN 15.7 mg/dL (7-18); CALCIUM 8.6 mg/dL (8.5-10.1); CREATININE 0.7 mg/dL (0.55-1.3); POTASSIUM 4.1 mmol/L (3.5-5.1); TOT PROT 5.3 g/dl (6.4-8.2)
[2018-11-11] MEDS: URSODIOL 300 MG CAPSULE PO SCH ×2 (10:17→23:19)
[2018-11-11] MEDS: PANTOPRAZOLE 40 MG TABLET (FP) PO SCH (10:17)
[2018-11-11] MEDS: FLUTICASONE/SALMETEROL 100 MCG/50 MCG DISKUS IH SCH ×2 (10:19→23:21)
--- NOTE | 2018-11-11 11:22 | PN ---
Progress Note (short form) - Note Progress Note: no complaints ate without problems ate solid food s/p ERCP , stone removal Vital Signs - 24 hr 11/10/18 11/10/18 11/11/18 21:00 21:42 06:00 Temperature 98.3 F 98.9 F Pulse Rate 72 78 Respiratory 18 18 Rate Blood Pressure 191/84 H 180/70 H 118/60 O2 Sat by Pulse 96 Oximetry (%) 11/11/18 15:37 Temperature 98.7 F Pulse Rate 82 Respiratory 202 H Rate Blood Pressure 117/67 O2 Sat by Pulse Oximetry (%) Current Medications Generic Name Dose Route Start Last Admin Trade Name Freq PRN Reason Stop Dose Admin Carbidopa/Levodopa 2 each 11/05/18 22:00 11/11/18 13:48 Sinemet 10/100 - PO 2 each TID PETE Administration Cefazolin Sodium 1 gm/ 50 mls @ 100 mls/hr 11/10/18 02:00 11/11/18 10:17 Dextrose IVPB 100 mls/hr Q8H-IV PETE Administration Metronidazole 500 mg in 100 mls @ 100 mls/hr 11/10/18 02:00 11/11/18 11:28 Flagyl 500mg Premixed Ivpb - IVPB 100 mls/hr Q8H-IV PETE Administration Lactated Ringer's 1,000 ml in 1,000 mls @ 42 mls/hr 11/11/18 07:00 Lactated Ringers Solution IV ASDIR PETE Pantoprazole Sodium 40 mg 11/09/18 10:00 11/11/18 10:17 Protonix - PO 40 mg DAILY PETE Administration Ropinirole HCl 1 mg 11/05/18 22:00 11/10/18 21:38 Requip - PO 1 mg HS PETE Administration Fluticasone/Salmeterol 1 puff 11/05/18 22:00 11/11/18 10:19 Advair 100mcg/50mcg - IH 1 puff BID PETE Administration Senna 2 tab 11/11/18 11:47 Senna - PO HS PRN CONSTIPATION Tamsulosin HCl 0.8 mg 11/05/18 22:00 11/10/18 21:38 Flomax - PO 0.8 mg HS PETE Administration Ursodiol 300 mg 11/08/18 22:00 09/14/19 10:17 Actigal - PO 300 mg BID PETE Administration Laboratory Results - last 24 hr 11/11/18 11/11/18 08:29 08:29 WBC 10.6 H RBC 3.50 L Hgb 10.8 L Hct 32.5 L MCV 93.0 MCH 30.9 MCHC 33.2 RDW 13.9 Plt Count 220 D MPV 9.5 Absolute Neuts (auto) 8.5 H Neutrophils % 79.9 Lymphocytes % 11.4 D Monocytes % 8.5 Eosinophils % 0.1 D Basophils % 0.1 Nucleated RBC % 0 Sodium 137 Potassium 4.1 Chloride 102 Carbon Dioxide 29 Anion Gap 7 L BUN 15.7 Creatinine 0.7 Est GFR (CKD-EPI)AfAm 99.73 Est GFR (CKD-EPI)NonAf 86.05 Random Glucose 92 Calcium 8.6 Total Bilirubin 0.5 Direct Bilirubin 0.1 AST 42 H ALT 17 Alkaline Phosphatase 92 C-Reactive Protein 1.5 H Total Protein 5.3 L Albumin 2.5 L Total Amylase 107 Lipase 199 S1 S2 RRR Lungs decreased Abd- soft, NT no edema PLAN LFT improving s/p ERCP iv antibiotics pt to consider cholecystectomy Problem List - Problems (1) Hematemesis Code(s): K92.0 - HEMATEMESIS (2) Vomiting without nausea, intractable Code(s): R11.11 - VOMITING WITHOUT NAUSEA (3) Anxiety Code(s): F41.9 - ANXIETY DISORDER, UNSPECIFIED (4) COPD (chronic obstructive pulmonary disease) Code(s): J44.9 - CHRONIC OBSTRUCTIVE PULMONARY DISEASE, UNSPECIFIED Qualifiers: COPD type: COPD with acute lower respiratory infection Qualified Code(s): J44.0 - Chronic obstructive pulmonary disease with acute lower respiratory infection (5) Parkinsonism Code(s): G20 - PARKINSON'S DISEASE
[2018-11-11] MEDS ORDERED: SENNOSIDES 8.6MG TABLET (FP) PO PRN (11:47)
[2018-11-11] MEDS ORDERED: MAGNESIUM HYDROX 2400MG/30ML ORAL SUSPENSION 30 ML CUP PO ONE (12:00)
--- NOTE | 2018-11-11 17:04 | PN.GI ---
GI Progress Note Subjective: For Dr. Pradhan who resumes care 11/13: No acute events No abdominal pain S/P ERCP yesterday with stone extraction x 3 Tolerating PO - Objective Vital Signs: Vital Signs Temperature 98.7 F 11/11/18 15:37 Pulse Rate 82 11/11/18 15:37 Respiratory Rate 202 H 11/11/18 15:37 Blood Pressure 117/67 11/11/18 15:37 O2 Sat by Pulse Oximetry (%) 96 11/10/18 21:00 Constitutional: Calm Eyes: No: Sclera Icterus Cardiovascular: Yes: Regular Rate and Rhythm Respiratory: Yes: CTA Bilaterally Gastrointestinal Inspection: No: Distention ...Auscultate: Yes: Normoactive Bowel Sounds ...Palpate: No: Tenderness Edema: No (No LE edema) Neurological: Yes: Alert Labs: CBC, BMP 11/11/18 08:29 11/11/18 08:29 INR, PTT INR 1.11 (0.83-1.09) H 11/06/18 11:05 Laboratory Tests 11/11/18 08:29 Total Amylase 107 Lipase 199 Problem List - Problems (1) Choledocholithiasis Assessment/Plan: S/P ERCP with stone extraction LFTs normalizing and asymptomatic post procedure Deciding re: cholectystectomy Continue antibiotics Code(s): K80.50 - CALCULUS OF BILE DUCT W/O CHOLANGITIS OR CHOLECYST W/O OBST
[2018-11-11] MEDS: LACTATED RINGERS SOLUTION 1,000 ML/1,000 ML INFUS.BAG IV SCH (23:19)
[2018-11-11] MEDS: TAMSULOSIN HCL 0.4 MG CAP PO SCH (23:19)
[2018-11-11] MEDS: rOPINIRole HCL 1 MG TABLET (FP) PO SCH (23:20)
[2018-11-12] MEDS ORDERED: DEXTROSE 5%-WATER - 50 ML IVPB ONE ×3 (01:58→16:51)
[2018-11-12] MEDS ORDERED: ceFAZolin SODIUM 1 GM VIAL ONE ×3 (01:58→16:50)
[2018-11-12] MEDS: CEFAZOLIN 1 GM in DEXTROSE 5%-WATER - 50 ML IVPB SCH ×3 (02:20→17:03)
[2018-11-12] MEDS: CARBIDOPA/LEVODOPA 10/100 TABLET (FP) PO SCH ×3 (05:57→22:03)
[2018-11-12] MEDS: LACTATED RINGERS SOLUTION 1,000 ML/1,000 ML INFUS.BAG IV SCH (07:00)
--- NOTE | 2018-11-12 07:14 | PN ---
Progress Note, Physician Chief Complaint: s/p ercp under general anesthesia History of Present Illness: post op day one - Current Medication List Current Medications: Active Medications Carbidopa/Levodopa (Sinemet 10/100 -) 2 each PO TID [facility] Last Admin: 11/12/18 05:57 Dose: 2 each Cefazolin Sodium 1 gm/ (Dextrose) 50 mls @ 100 mls/hr IVPB Q8H-IV [facility] Last Admin: 11/12/18 02:20 Dose: 100 mls/hr Metronidazole (Flagyl 500mg Premixed Ivpb -) 500 mg in 100 mls @ 100 mls/hr IVPB Q8H-IV [facility] Last Admin: 11/12/18 02:50 Dose: 100 mls/hr Lactated Ringer's (Lactated Ringers Solution) 1,000 ml in 1,000 mls @ 42 mls/ hr IV ASDIR [facility] Last Admin: 11/11/18 23:19 Dose: Not Given Pantoprazole Sodium (Protonix -) 40 mg PO DAILY [facility] Last Admin: 11/11/18 10:17 Dose: 40 mg Ropinirole HCl (Requip -) 1 mg PO HS [facility] Last Admin: 11/11/18 23:20 Dose: 1 mg Fluticasone/Salmeterol (Advair 100mcg/50mcg -) 1 puff IH BID [facility] Last Admin: 11/11/18 23:21 Dose: 1 puff Senna (Senna -) 2 tab PO HS PRN PRN Reason: CONSTIPATION Tamsulosin HCl (Flomax -) 0.8 mg PO HS [facility] Last Admin: 11/11/18 23:19 Dose: 0.8 mg Ursodiol (Actigal -) 300 mg PO BID [facility] Last Admin: 11/11/18 23:19 Dose: 300 mg - Objective Vital Signs: Vital Signs Temperature 98.8 F 11/12/18 06:02 Pulse Rate 92 H 11/12/18 06:02 Respiratory Rate 20 11/12/18 06:02 Blood Pressure 137/75 11/12/18 06:02 O2 Sat by Pulse Oximetry (%) 96 11/11/18 21:00 Constitutional: Yes: Well Nourished Cardiovascular: Yes: WNL Respiratory: Yes: WNL Gastrointestinal: Yes: WNL Labs: CBC, BMP 11/11/18 08:29 11/11/18 08:29 INR, PTT INR 1.11 (0.83-1.09) H 11/06/18 11:05 Assessment/Plan No apparent adverse anesthetic effects, no pain, patient in good spirits. Dept of anesthesiology will sign off care at this time
--- NOTE | 2018-11-12 08:59 | PN ---
Progress Note (short form) - Note Progress Note: no complaints ate without problems no bm so far Vital Signs - 24 hr 11/11/18 11/11/18 11/11/18 18:30 21:00 23:18 Temperature 98.1 F 99.2 F Pulse Rate 85 95 H Respiratory 18 20 Rate Blood Pressure 111/59 L 141/69 O2 Sat by Pulse 96 Oximetry (%) 11/12/18 11/12/18 11/12/18 02:00 06:02 09:00 Temperature 99.0 F 98.8 F Pulse Rate 96 H 92 H Respiratory 20 20 20 Rate Blood Pressure 124/56 L 137/75 O2 Sat by Pulse 96 Oximetry (%) 11/12/18 11/12/18 09:57 15:30 Temperature 99.3 F 97.9 F Pulse Rate 92 H 82 Respiratory 20 20 Rate Blood Pressure 130/60 143/79 O2 Sat by Pulse Oximetry (%) Current Medications Generic Name Dose Route Start Last Admin Trade Name Freq PRN Reason Stop Dose Admin Bisacodyl 10 mg 11/12/18 09:30 11/12/18 12:41 Dulcolax Suppository - [place] 10 mg DAILY PRN Administration CONSTIPATION Carbidopa/Levodopa 2 each 11/05/18 22:00 11/12/18 14:17 Sinemet 10/100 - PO 2 each TID PETE Administration Cefazolin Sodium 1 gm/ 50 mls @ 100 mls/hr 11/10/18 02:00 11/12/18 17:03 Dextrose IVPB 100 mls/hr Q8H-IV PETE Administration Metronidazole 500 mg in 100 mls @ 100 mls/hr 11/10/18 02:00 11/12/18 11:39 Flagyl 500mg Premixed Ivpb - IVPB 100 mls/hr Q8H-IV PETE Administration Magnesium Hydroxide 30 ml 11/12/18 09:30 11/12/18 16:25 Milk Of Magnesia - PO 30 ml Q8H PRN Administration INDIGESTION Pantoprazole Sodium 40 mg 11/09/18 10:00 11/12/18 10:38 Protonix - PO 40 mg DAILY PETE Administration Ropinirole HCl 1 mg 11/05/18 22:00 11/11/18 23:20 Requip - PO 1 mg HS PETE Administration Fluticasone/Salmeterol 1 puff 11/05/18 22:00 11/12/18 10:41 Advair 100mcg/50mcg - IH 1 puff BID PETE Administration Senna 2 tab 11/12/18 22:00 Senna - PO HS PETE Tamsulosin HCl 0.8 mg 11/05/18 22:00 11/11/18 23:19 Flomax - PO 0.8 mg HS PETE Administration Ursodiol 300 mg 11/08/18 22:00 11/12/18 10:38 Actigal - PO 300 mg BID PETE Administration S1 S2 RRR Lungs decreased Abd- soft, NT no edema PLAN LFT improving s/p ERCP iv antibiotics pt to consider cholecystectomy-->he would like to speak to a surgeon pt is a surgical risk Problem List - Problems (1) Hematemesis Code(s): K92.0 - HEMATEMESIS (2) Vomiting without nausea, intractable Code(s): R11.11 - VOMITING WITHOUT NAUSEA (3) Anxiety Code(s): F41.9 - ANXIETY DISORDER, UNSPECIFIED (4) COPD (chronic obstructive pulmonary disease) Code(s): J44.9 - CHRONIC OBSTRUCTIVE PULMONARY DISEASE, UNSPECIFIED Qualifiers: COPD type: COPD with acute lower respiratory infection Qualified Code(s): J44.0 - Chronic obstructive pulmonary disease with acute lower respiratory infection (5) Parkinsonism Code(s): G20 - PARKINSON'S DISEASE
[2018-11-12] MEDS ORDERED: MAGNESIUM HYDROX 2400MG/30ML ORAL SUSPENSION 30 ML CUP PO PRN (09:30)
[2018-11-12] MEDS ORDERED: BISACODYL 10 MG SUPP.RECT PR PRN (09:30)
[2018-11-12] MEDS: PANTOPRAZOLE 40 MG TABLET (FP) PO SCH (10:38)
[2018-11-12] MEDS: URSODIOL 300 MG CAPSULE PO SCH ×2 (10:38→22:03)
[2018-11-12] MEDS: FLUTICASONE/SALMETEROL 100 MCG/50 MCG DISKUS IH SCH ×2 (10:41→22:05)
--- NOTE | 2018-11-12 12:57 | CONSULT ---
Consult Consult Specialty:: General Surgery Reason for Consultation:: gall stone pancreatitis - History of Present Illness Chief Complaint: abdominal pain History of Present Illness: 83[facility], HTN, HLD, COPD, Anemia, chronic constipation, BPH , arthritis, recent left leg skin cancer removal, and Parkinsons disease who presents to the [facility] er BIBEMS after he experienced coffee ground emesis this morning at the longterm after he was eating eggs. Patient states he woke up and felt normal but then he ate eggs for breakfast and after breakfast started vomiting dark material. EMS said that the vomitus appeared to be coffee ground. The patient thinks his vomit was a result of eating some bad food. The patient states that this morning he had abdominal pain and nausea but that has mostly resolved after EMS gave him zofran which made him feel better. Patient states he had a bowel movement yesterday and feels constipated but this is no different than his usual constipation. He has ERCP and sphincterotomy with stent 3 CBD stones removed. we were called to assess. - History Source History Provided By: Patient, Medical Record Limitations to Obtaining History: No Limitations - Past Medical History [employer]: Yes: Parkinson's Cardio/Vascular: Yes: Hyperlipdemia Pulmonary: Yes: COPD (has required bronchoscopy and chest tubes for collapsed lung due to mucus plugging andh for thoracenteses) Renal/: Yes: BPH Rheumatology: Yes: Other (left hand contracted.) Dermatology: Yes: Basal Cell (multiple skin cancer excisions lower extremities) - Past Surgical History Past Surgical History: Yes: Tonsillectomy Additional Surgical History: skin cancer excisions. bronchoscopies and chest tubes. 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 History of Recent Travel: No Home Medications - Allergies Allergies/Adverse Reactions: Allergies Allergy/AdvReac Type Severity Reaction Status Date / Time No Known Drug Allergies Allergy Verified 11/05/18 11:15 - Home Medications Home Medications: Ambulatory Orders Ascorbate Calcium [Vitamin C] 500 mg PO DAILY 02/15/14 Carbidopa/Levodopa 10/ [Sinemet -] 2 tab PO TID 02/15/14 Divalproex [Depakote -] 750 mg PO HS 02/15/14 Fluticasone Prop 0.05% Nasal [Flonase -] 1 spray DAILY 02/15/14 Hydrochlorothiazide [Hctz -] 25 mg PO DAILY 02/15/14 Ropinirole HCl [Requip] 1 mg PO HS 02/15/14 Tamsulosin HCl [Flomax -] 2 cap PO HS 02/15/14 Cholecalciferol (Vitamin D3) [Vitamin D3] 1,000 unit PO DAILY 12/09/14 Multivitamin [Poly-Vitamin] 1 each PO DAILY 12/09/14 Polyethylene Glycol 3350 [Miralax 119 gm Btl -] 17 gm PO DAILY 12/09/14 Salmeterol/Fluticasone [Advair 100Mcg/50Mcg -] 1 inh PO BID 12/09/14 Selenium Sulfide/Menthol [Selsun Blue 1% Shampoo] 0 ml TP TH 12/09/14 Sennosides [Senna] 2 tab PO HS 12/09/14 Simvastatin 40 mg PO PCHS 12/09/14 Ferrous Gluconate [Iron] 325 mg PO BID 08/13/15 Family Disease History - Family Disease History Family Disease History: Other: Father ( 60s of CVAs), Mother (lived to her 90s) Review of Systems - Review of Systems Constitutional: denies: Chills, Fever, Unintentional Wgt. Loss Eyes: denies: Blind Spots, Recent Change in Vision HENT: denies: Difficult Swallowing, Throat Pain Neck: denies: Pain on Movement, Tenderness Cardiovascular: denies: Chest Pain, Palpitations Respiratory: denies: Cough, SOB Gastrointestinal: reports: Constipation. denies: Abdominal Pain, Bloating Genitourinary: denies: Discharge, Dysuria Breasts: reports: No Symptoms Reported. denies: Pain, Skin Changes Musculoskeletal: denies: Joint Swelling, Muscle Cramps Integumentary: denies: Lesions, Rash Neurological: denies: Seizure, Syncope, Tremors Endocrine: denies: Unexplained Weight Gain, Unexplained Weight Loss Hematology/Lymphatic: denies: Easily Bruised, Excessive Bleeding Psychiatric: denies: Anxiety, Depression Physical Exam Vital Signs: Vital Signs Temperature 99.3 F 11/12/18 09:57 Pulse Rate 92 H 11/12/18 09:57 Respiratory Rate 20 11/12/18 09:57 Blood Pressure 130/60 11/12/18 09:57 O2 Sat by Pulse Oximetry (%) 96 11/11/18 21:00 Constitutional: Yes: No Distress, Calm, Thin Eyes: Yes: Conjunctiva Clear, EOM Intact HENT: Yes: Atraumatic, Normocephalic Neck: Yes: Supple, Trachea Midline Cardiovascular: Yes: Regular Rate and Rhythm, S1, S2 Respiratory: Yes: Regular, CTA Bilaterally Gastrointestinal: Yes: Normal Bowel Sounds, Soft. No: Tenderness, Tenderness, Epigastrium ...Rectal Exam: Yes: Deferred Renal/: No: CVA Tenderness - Left, CVA Tenderness - Right Breast(s): No: Mass, Skin Changes Extremities: No: Cool, Cyanosis Edema: No Peripheral Pulses WNL: Yes Integumentary: No: Jaundice, Rash Neurological: Yes: Alert, Confusion. No: Oriented Psychiatric: Yes: Alert. No: Oriented Labs: CBC, BMP 11/11/18 08:29 11/11/18 08:29 Imaging - Results Cat Scan: Report Reviewed, Image Reviewed Ultrasound: Report Reviewed, Image Reviewed Other: Report Reviewed, Image Reviewed (ERCP report reviewed) Problem List - Problems (1) Biliary acute pancreatitis Assessment/Plan: 83yo male MMP with biliary pancreatitis s/p ERCP removal of 3 stones. Significant surgical risk. No acute surgical intervention medical management diet as tolerated Agree with GI plan strict low fat diet Discharge Thank you for the opportunity to participate in the care of this patient. Code(s): K85.10 - BILIARY ACUTE PANCREATITIS WITHOUT NECROSIS OR INFECTION Qualifiers: Acute pancreatitis complication: no infection or necrosis Qualified Code(s) : K85.10 - Biliary acute pancreatitis without necrosis or infection (2) Anemia Code(s): D64.9 - ANEMIA, UNSPECIFIED (3) Choledocholithiasis Code(s): K80.50 - CALCULUS OF BILE DUCT W/O CHOLANGITIS OR CHOLECYST W/O OBST (4) Skin cancer Code(s): C44.90 - UNSPECIFIED MALIGNANT NEOPLASM OF SKIN, UNSPECIFIED (5) Anxiety Code(s): F41.9 - ANXIETY DISORDER, UNSPECIFIED (6) COPD (chronic obstructive pulmonary disease) Code(s): J44.9 - CHRONIC OBSTRUCTIVE PULMONARY DISEASE, UNSPECIFIED Qualifiers: COPD type: COPD with acute lower respiratory infection Qualified Code(s): J44.0 - Chronic obstructive pulmonary disease with acute lower respiratory infection (7) Parkinsonism Code(s): G20 - PARKINSON'S DISEASE
[2018-11-12] MEDS ORDERED: PT OWN MED DRAWER 7, Y5N ONE (13:50)
[2018-11-12] MEDS ORDERED: ACETAMINOPHEN 325 MG TABLET (FP) PO ONE (20:08)
[2018-11-12] MEDS: TAMSULOSIN HCL 0.4 MG CAP PO SCH (22:03)
[2018-11-12] MEDS: rOPINIRole HCL 1 MG TABLET (FP) PO SCH (22:03)
[2018-11-12] MEDS: SENNOSIDES 8.6MG TABLET (FP) PO SCH (22:03)
[2018-11-13] MEDS ORDERED: ceFAZolin SODIUM 1 GM VIAL ONE ×3 (00:45→17:49)
[2018-11-13] MEDS ORDERED: DEXTROSE 5%-WATER - 50 ML IVPB ONE ×3 (00:45→17:50)
[2018-11-13] MEDS: CEFAZOLIN 1 GM in DEXTROSE 5%-WATER - 50 ML IVPB SCH ×3 (01:49→19:08)
[2018-11-13] MEDS: CARBIDOPA/LEVODOPA 10/100 TABLET (FP) PO SCH ×3 (06:04→23:22)
[2018-11-13] MEDS ORDERED: PT OWN MED DRAWER 7, Y5N ONE ×4 (06:26→23:01)
[2018-11-13 07:25] LABS: BASO % 0.2 % (0-2.0); EOS % 0.1 % (0-4.5); HEMATOCRIT 34.5 % (35.4-49); HEMOGLOBIN 11.5 GM/dL (11.7-16.9); LYMPH % 6.3 % (8-40); MCH 30.8 pg (25.7-33.7); MCHC 33.3 g/dl (32.0-35.9); MEAN CELL VOLUME 92.5 fl (80-96); MEAN PLT VOLUME 9.4 fl (7.5-11.1); MONO % 7.9 % (3.8-10.2); NEUT % 85.5 % (42.8-82.8); PLATELET COUNT 237 K/MM3 (134-434); RBC 3.73 M/mm3 (4.00-5.60); RDW 13.9 % (11.9-15.9)
[2018-11-13 07:29] LABS: INR 1.24 (0.83-1.09); PROTHROMBIN TIME (PATIENT) 14.7 SEC (9.7-13.0)
[2018-11-13 07:42] LABS: ALBUMIN 2.5 g/dl (3.4-5.0); BILIRUBIN,TOTAL 0.5 mg/dL (0.2-1); CALCIUM 8.3 mg/dL (8.5-10.1); CREATININE 0.6 mg/dL (0.55-1.3); POTASSIUM 3.8 mmol/L (3.5-5.1); TOT PROT 5.4 g/dl (6.4-8.2)
[2018-11-13] MEDS: PANTOPRAZOLE 40 MG TABLET (FP) PO SCH (10:32)
[2018-11-13] MEDS: URSODIOL 300 MG CAPSULE PO SCH ×2 (10:32→23:19)
[2018-11-13] MEDS: FLUTICASONE/SALMETEROL 100 MCG/50 MCG DISKUS IH SCH ×2 (10:36→23:23)
--- NOTE | 2018-11-13 12:33 | PN.GI ---
GI Progress Note Subjective: GI NOte: LFTs have normalized following ERCP. Had pain yesterday but none today. Tells me that he favors proceeding with lap choly. Has already been seen by Dr Cardona. - Objective Vital Signs: Vital Signs Temperature 98.8 F 11/13/18 05:59 Pulse Rate 99 H 11/13/18 05:59 Respiratory Rate 20 11/13/18 05:59 Blood Pressure 153/68 11/13/18 05:59 O2 Sat by Pulse Oximetry (%) 96 11/12/18 21:00 Constitutional: Calm ...Auscultate: Yes: Normoactive Bowel Sounds ...Palpate: Yes: Soft, Other (nontender) Labs: CBC, BMP 11/13/18 06:35 11/13/18 06:35 INR, PTT INR 1.24 (0.83-1.09) H 11/13/18 06:35 Assessment/Plan Assessment: - Biliary pancreatitis resolving. - Day 3 s/p ERCP to remove CBD stones. - Anemia Plan: -- Anticipate cholecystectomy -- Will continue antibiotics Problem List - Problems (1) Biliary acute pancreatitis Code(s): K85.10 - BILIARY ACUTE PANCREATITIS WITHOUT NECROSIS OR INFECTION Qualifiers: Acute pancreatitis complication: no infection or necrosis Qualified Code(s) : K85.10 - Biliary acute pancreatitis without necrosis or infection (2) Anemia Code(s): D64.9 - ANEMIA, UNSPECIFIED (3) Vomiting without nausea, intractable Code(s): R11.11 - VOMITING WITHOUT NAUSEA (4) Pancreatitis Code(s): K85.90 - ACUTE PANCREATITIS WITHOUT NECROSIS OR INFECTION, UNSP Qualifiers: Chronicity: acute Pancreatitis type: unspecified pancreatitis type Acute pancreatitis complication: unspecified Qualified Code(s): K85.90 - Acute pancreatitis without necrosis or infection, unspecified (5) Hematemesis Code(s): K92.0 - HEMATEMESIS (6) Skin cancer Code(s): C44.90 - UNSPECIFIED MALIGNANT NEOPLASM OF SKIN, UNSPECIFIED (7) COPD (chronic obstructive pulmonary disease) Code(s): J44.9 - CHRONIC OBSTRUCTIVE PULMONARY DISEASE, UNSPECIFIED Qualifiers: COPD type: COPD with acute lower respiratory infection Qualified Code(s): J44.0 - Chronic obstructive pulmonary disease with acute lower respiratory infection (8) Parkinsonism Code(s): G20 - PARKINSON'S DISEASE
--- NOTE | 2018-11-13 12:42 | PN ---
Progress Note (short form) - Note Progress Note: Pt seen/ examined chart reviewed all f/u noted comfortable denies pain now Vital Signs Temp 98.8 F 11/13/18 05:59 Pulse 99 H 11/13/18 05:59 Resp 20 11/13/18 05:59 BP 153/68 11/13/18 05:59 Pulse Ox 96 11/12/18 21:00 Intake & Output 11/12/18 11/13/18 11/13/18 23:59 11:59 23:59 Intake Total 1070 400 Balance 1070 400 Intake: IV 120 LACTATED RINGERS SOLUTION 120 1,000 ml In 1,000 ml @ 42 mls/hr IV ASDIR PETE Rx #:[id number] IVPB 300 200 Oral 650 200 Other: Voiding Method Diaper # Unmeasured Voids Void 2 Bowel Movement Yes # Bowel Movements 1 Active Medications Bisacodyl (Dulcolax Suppository -) 10 mg CO DAILY PRN PRN Reason: CONSTIPATION Last Admin: 11/12/18 12:41 Dose: 10 mg Carbidopa/Levodopa (Sinemet 10/100 -) 2 each PO TID [facility] Last Admin: 11/13/18 06:04 Dose: 2 each Cefazolin Sodium 1 gm/ (Dextrose) 50 mls @ 100 mls/hr IVPB Q8H-IV [facility] Last Admin: 11/13/18 10:31 Dose: 100 mls/hr Metronidazole (Flagyl 500mg Premixed Ivpb -) 500 mg in 100 mls @ 100 mls/hr IVPB Q8H-IV PETE Last Admin: 11/13/18 11:05 Dose: 100 mls/hr Magnesium Hydroxide (Milk Of Magnesia -) 30 ml PO Q8H PRN PRN Reason: INDIGESTION Last Admin: 11/12/18 16:25 Dose: 30 ml Pantoprazole Sodium (Protonix -) 40 mg PO DAILY PETE Last Admin: 11/13/18 10:32 Dose: 40 mg Ropinirole HCl (Requip -) 1 mg PO HS [facility] Last Admin: 11/12/18 22:03 Dose: 1 mg Fluticasone/Salmeterol (Advair 100mcg/50mcg -) 1 puff IH BID [facility] Last Admin: 11/13/18 10:36 Dose: 1 puff Senna (Senna -) 2 tab PO HS [facility] Last Admin: 11/12/18 22:03 Dose: 2 tab Tamsulosin HCl (Flomax -) 0.8 mg PO HS [facility] Last Admin: 11/12/18 22:03 Dose: 0.8 mg Ursodiol (Actigal -) 300 mg PO BID [facility] Last Admin: 11/13/18 10:32 Dose: 300 mg CBC,CMP WBC 15.0 K/mm3 (4.0-10.0) H 11/13/18 06:35 RBC 3.73 M/mm3 (4.00-5.60) L 11/13/18 06:35 Hgb 11.5 GM/dL (11.7-16.9) L 11/13/18 06:35 Hct 34.5 % (35.4-49) L 11/13/18 06:35 MCV 92.5 fl (80-96) 11/13/18 06:35 MCH 30.8 pg (25.7-33.7) 11/13/18 06:35 MCHC 33.3 g/dl (32.0-35.9) 11/13/18 06:35 RDW 13.9 % (11.9-15.9) 11/13/18 06:35 Plt Count 237 K/MM3 (134-434) 11/13/18 06:35 MPV 9.4 fl (7.5-11.1) 11/13/18 06:35 Absolute Neuts (auto) 12.8 K/mm3 (1.5-8.0) H 11/13/18 06:35 Neutrophils % 85.5 % (42.8-82.8) H 11/13/18 06:35 Neutrophils % (Manual) 84.7 % (42.8-82.8) H 11/05/18 12:26 Band Neutrophils % 6.1 % 11/05/18 12:26 Lymphocytes % 6.3 % (8-40) L D 11/13/18 06:35 Lymphocytes % (Manual) 2.1 % (8-40) L 11/05/18 12:26 Monocytes % 7.9 % (3.8-10.2) 11/13/18 06:35 Monocytes % (Manual) 6 % (3.8-10.2) 11/05/18 12:26 Eosinophils % 0.1 % (0-4.5) 11/13/18 06:35 Eosinophils % (Manual) 0.0 % (0-4.5) 11/05/18 12:26 Basophils % 0.2 % (0-2.0) 11/13/18 06:35 Basophils % (Manual) 0.0 % (0-2.0) 11/05/18 12:26 Myelocytes % (Man) 0 % (0-2) 11/05/18 12:26 Promyelocytes % (Man) 0 % (0-2) 11/05/18 12:26 Blast Cells % (Manual) 0 % (0-0) 11/05/18 12:26 Nucleated RBC % 0 % (0-0) 11/13/18 06:35 Metamyelocytes 0 % (0-2) 11/05/18 12:26 Hypochromia 0 11/05/18 12:26 Toxic Granulation 1+ 11/05/18 12:26 Platelet Estimate Normal 11/05/18 12:26 Polychromasia 0 11/05/18 12:26 Poikilocytosis 0 11/05/18 12:26 Anisocytosis 0 11/05/18 12:26 Microcytosis 0 11/05/18 12:26 Macrocytosis 1+ 11/05/18 12:26 Sodium 137 mmol/L (136-145) 11/13/18 06:35 Potassium 3.8 mmol/L (3.5-5.1) 11/13/18 06:35 Chloride 102 mmol/L (98-107) 11/13/18 06:35 Carbon Dioxide 27 mmol/L (21-32) 11/13/18 06:35 Anion Gap 8 MMOL/L (8-16) 11/13/18 06:35 BUN 18.0 mg/dL (7-18) 11/13/18 06:35 Creatinine 0.6 mg/dL (0.55-1.3) 11/13/18 06:35 Est GFR (CKD-EPI)AfAm 106.26 11/13/18 06:35 Est GFR (CKD-EPI)NonAf 91.68 11/13/18 06:35 Random Glucose 111 mg/dL (74-106) H 11/13/18 06:35 Lactic Acid 1.4 mmol/L (0.4-2.0) 11/05/18 12:26 Calcium 8.3 mg/dL (8.5-10.1) L 11/13/18 06:35 Phosphorus 2.7 mg/dL (2.5-4.9) 11/05/18 12:26 Magnesium 2.0 mg/dL (1.8-2.4) 11/05/18 12:26 Total Bilirubin 0.5 mg/dL (0.2-1) 11/13/18 06:35 Direct Bilirubin 0.1 mg/dL (0.0-0.2) 11/11/18 08:29 AST 19 U/L (15-37) 11/13/18 06:35 ALT 31 U/L (13-61) 11/13/18 06:35 Alkaline Phosphatase 83 U/L (45-117) 11/13/18 06:35 Troponin I < 0.02 ng/ml (0.00-0.05) 11/05/18 12:26 C-Reactive Protein 1.5 MG/DL (0.00-0.3) H 11/11/18 08:29 Total Protein 5.4 g/dl (6.4-8.2) L 11/13/18 06:35 Albumin 2.5 g/dl (3.4-5.0) L 11/13/18 06:35 Triglycerides 72 mg/dL (0-150) 11/06/18 06:00 Total Amylase 107 U/L (25-115) 11/11/18 08:29 Lipase 199 U/L (73-393) 11/11/18 08:29 CBC, BMP 11/13/18 06:35 11/13/18 06:35 Abnormal Lab Results 11/13/18 11/13/18 11/13/18 06:35 06:35 06:35 WBC 15.0 H RBC 3.73 L Hgb 11.5 L Hct 34.5 L Absolute Neuts (auto) 12.8 H Neutrophils % 85.5 H Lymphocytes % 6.3 L D PT with INR 14.70 H INR 1.24 H Random Glucose 111 H Calcium 8.3 L Total Protein 5.4 L Albumin 2.5 L Physical Exam Awake/ comfortable S1 S2 RRR Lungs decreased Abd- soft, NT no edema PLAN LFT improving s/p ERCP iv antibiotics cholecystectomy-->will discuss with Surgeon f/u labs will follow Problem List - Problems (1) Hematemesis Code(s): K92.0 - HEMATEMESIS (2) Vomiting without nausea, intractable Code(s): R11.11 - VOMITING WITHOUT NAUSEA (3) Anxiety Code(s): F41.9 - ANXIETY DISORDER, UNSPECIFIED (4) COPD (chronic obstructive pulmonary disease) Code(s): J44.9 - CHRONIC OBSTRUCTIVE PULMONARY DISEASE, UNSPECIFIED Qualifiers: COPD type: COPD with acute lower respiratory infection Qualified Code(s): J44.0 - Chronic obstructive pulmonary disease with acute lower respiratory infection (5) Parkinsonism Code(s): G20 - PARKINSON'S DISEASE
[2018-11-13] MEDS: rOPINIRole HCL 1 MG TABLET (FP) PO SCH (23:19)
[2018-11-13] MEDS: TAMSULOSIN HCL 0.4 MG CAP PO SCH (23:19)
[2018-11-13] MEDS: SENNOSIDES 8.6MG TABLET (FP) PO SCH (23:23)
[2018-11-14] MEDS: CEFAZOLIN 1 GM in DEXTROSE 5%-WATER - 50 ML IVPB SCH ×3 (02:34→17:15)
[2018-11-14] MEDS ORDERED: ceFAZolin SODIUM 1 GM VIAL ONE ×3 (02:34→16:51)
[2018-11-14] MEDS ORDERED: DEXTROSE 5%-WATER - 50 ML IVPB ONE ×3 (02:34→16:51)
[2018-11-14] MEDS: CARBIDOPA/LEVODOPA 10/100 TABLET (FP) PO SCH ×3 (05:57→22:54)
[2018-11-14 06:43] LABS: INR 1.25 (0.83-1.09); PROTHROMBIN TIME (PATIENT) 14.8 SEC (9.7-13.0)
[2018-11-14 06:57] LABS: BASO % 0.3 % (0-2.0); EOS % 1.7 % (0-4.5); HEMATOCRIT 31.2 % (35.4-49); HEMOGLOBIN 10.5 GM/dL (11.7-16.9); LYMPH % 13.1 % (8-40); MCH 30.8 pg (25.7-33.7); MCHC 33.5 g/dl (32.0-35.9); MEAN CELL VOLUME 91.9 fl (80-96); MEAN PLT VOLUME 9.6 fl (7.5-11.1); MONO % 9.4 % (3.8-10.2); NEUT % 75.5 % (42.8-82.8); PLATELET COUNT 240 K/MM3 (134-434); RBC 3.39 M/mm3 (4.00-5.60); RDW 13.8 % (11.9-15.9); WHITE BLOOD COUNT 9.3 K/mm3 (4.0-10.0)
[2018-11-14 07:00] LABS: ALBUMIN 2.3 g/dl (3.4-5.0); BILIRUBIN,TOTAL 0.4 mg/dL (0.2-1); BLOOD UREA NITROGEN 18.9 mg/dL (7-18); CREATININE 0.6 mg/dL (0.55-1.3); POTASSIUM 3.7 mmol/L (3.5-5.1)
[2018-11-14] MEDS: URSODIOL 300 MG CAPSULE PO SCH ×2 (09:44→22:53)
[2018-11-14] MEDS: PANTOPRAZOLE 40 MG TABLET (FP) PO SCH (09:44)
[2018-11-14] MEDS: FLUTICASONE/SALMETEROL 100 MCG/50 MCG DISKUS IH SCH ×2 (09:46→22:56)
--- NOTE | 2018-11-14 12:28 | PN ---
Progress Note (short form) - Note Progress Note: no complaints ate without problems had a bm no abd pain wants to undergo surgery - lap collette Vital Signs - 24 hr 11/13/18 11/13/18 11/13/18 15:00 18:00 21:00 Temperature 98.4 F 99.4 F Pulse Rate 94 H 94 H Respiratory 18 18 Rate Blood Pressure 131/56 L 119/65 O2 Sat by Pulse 97 Oximetry (%) 11/13/18 11/14/18 11/14/18 23:27 02:00 06:00 Temperature 97.8 F 98.4 F 98.3 F Pulse Rate 77 90 Respiratory 18 18 Rate Blood Pressure 137/60 152/64 O2 Sat by Pulse Oximetry (%) 11/14/18 09:11 Temperature 98.3 F Pulse Rate 92 H Respiratory 18 Rate Blood Pressure 141/66 O2 Sat by Pulse Oximetry (%) Current Medications Generic Name Dose Route Start Last Admin Trade Name Freq PRN Reason Stop Dose Admin Bisacodyl 10 mg 11/12/18 09:30 11/12/18 12:41 Dulcolax Suppository - SC 10 mg DAILY PRN Administration CONSTIPATION Carbidopa/Levodopa 2 each 11/05/18 22:00 11/14/18 05:57 Sinemet 10/100 - PO 2 each TID PETE Administration Cefazolin Sodium 1 gm/ 50 mls @ 100 mls/hr 11/10/18 02:00 11/14/18 09:44 Dextrose IVPB 100 mls/hr Q8H-IV PETE Administration Metronidazole 500 mg in 100 mls @ 100 mls/hr 11/10/18 02:00 11/14/18 10:32 Flagyl 500mg Premixed Ivpb - IVPB 100 mls/hr Q8H-IV PETE Administration Magnesium Hydroxide 30 ml 11/12/18 09:30 11/12/18 16:25 Milk Of Magnesia - PO 30 ml Q8H PRN Administration INDIGESTION Pantoprazole Sodium 40 mg 11/09/18 10:00 11/14/18 09:44 Protonix - PO 40 mg DAILY PETE Administration Ropinirole HCl 1 mg 11/05/18 22:00 11/13/18 23:19 Requip - PO 1 mg HS PETE Administration Fluticasone/Salmeterol 1 puff 11/05/18 22:00 11/14/18 09:46 Advair 100mcg/50mcg - IH 1 puff BID PETE Administration Senna 2 tab 11/12/18 22:00 11/13/18 23:23 Senna - PO 2 tab HS PETE Administration Tamsulosin HCl 0.8 mg 11/05/18 22:00 11/13/18 23:19 Flomax - PO 0.8 mg HS PETE Administration Ursodiol 300 mg 11/08/18 22:00 11/14/18 09:44 Actigal - PO 300 mg BID PETE Administration Laboratory Results - last 24 hr 11/14/18 11/14/18 11/14/18 06:00 06:00 06:00 WBC 9.3 RBC 3.39 L Hgb 10.5 L Hct 31.2 L MCV 91.9 MCH 30.8 MCHC 33.5 RDW 13.8 Plt Count 240 MPV 9.6 Absolute Neuts (auto) 7.0 Neutrophils % 75.5 Lymphocytes % 13.1 D Monocytes % 9.4 Eosinophils % 1.7 D Basophils % 0.3 Nucleated RBC % 0 PT with INR 14.80 H INR 1.25 H Sodium 137 Potassium 3.7 Chloride 104 Carbon Dioxide 26 Anion Gap 7 L BUN 18.9 H Creatinine 0.6 Est GFR (CKD-EPI)AfAm 106.26 Est GFR (CKD-EPI)NonAf 91.68 Random Glucose 103 Calcium 8.0 L Total Bilirubin 0.4 AST 14 L ALT 11 L Alkaline Phosphatase 69 Total Protein 5.0 L Albumin 2.3 L S1 S2 RRR Lungs decreased Abd- soft, NT no edema PLAN LFT normal s/p ERCP and removal of stones iv antibiotics pt wants cholecystectomy-->he is a surgical risk to undergo general anesthesia- - I made him aware of that-- he still would like to proceed I will consult with Cardiology and Pulmonary for clearance check echo Check CXR Problem List - Problems (1) Hematemesis Code(s): K92.0 - HEMATEMESIS (2) Vomiting without nausea, intractable Code(s): R11.11 - VOMITING WITHOUT NAUSEA (3) Anxiety Code(s): F41.9 - ANXIETY DISORDER, UNSPECIFIED (4) COPD (chronic obstructive pulmonary disease) Code(s): J44.9 - CHRONIC OBSTRUCTIVE PULMONARY DISEASE, UNSPECIFIED Qualifiers: COPD type: COPD with acute lower respiratory infection Qualified Code(s): J44.0 - Chronic obstructive pulmonary disease with acute lower respiratory infection (5) Parkinsonism Code(s): G20 - PARKINSON'S DISEASE
[2018-11-14] MEDS ORDERED: PT OWN MED DRAWER 7, Y5N ONE ×2 (12:56→22:18)
--- NOTE | 2018-11-14 15:35 | PN.GI ---
GI Progress Note Subjective: GI NOte: Ismael has no pain and is tolerating a solid diet. He is consenting to cholecystectomy and is undergoing a preoperative cardiology evaluation. - Objective Vital Signs: Vital Signs Temperature 97.7 F 11/14/18 14:27 Pulse Rate 93 H 11/14/18 14:27 Respiratory Rate 18 11/14/18 14:27 Blood Pressure 118/60 11/14/18 14:27 O2 Sat by Pulse Oximetry (%) 95 11/14/18 09:00 Laboratory Tests 11/11/18 11/14/18 11/14/18 08:29 06:00 06:00 WBC 9.3 Hgb 10.5 L PT with INR 14.80 H Anion Gap Creatinine Total Bilirubin AST ALT Alkaline Phosphatase Total Amylase 107 Lipase 199 11/14/18 06:00 WBC Hgb PT with INR Anion Gap 7 L Creatinine 0.6 Total Bilirubin 0.4 AST 14 L ALT 11 L Alkaline Phosphatase 69 Total Amylase Lipase Constitutional: Calm ...Auscultate: Yes: Normoactive Bowel Sounds ...Palpate: Yes: Soft, Other (nontender) Labs: CBC, BMP 11/14/18 06:00 11/14/18 06:00 INR, PTT INR 1.25 (0.83-1.09) H 11/14/18 06:00 Assessment/Plan Assessment: - Biliary pancreatitis resolved. - s/p ERCP to remove CBD stones. - Anemia Plan: -- Anticipate cholecystectomy if cardiologically cleared -- Will continue antibiotics Problem List - Problems (1) Biliary acute pancreatitis Code(s): K85.10 - BILIARY ACUTE PANCREATITIS WITHOUT NECROSIS OR INFECTION Qualifiers: Acute pancreatitis complication: no infection or necrosis Qualified Code(s) : K85.10 - Biliary acute pancreatitis without necrosis or infection (2) Anemia Code(s): D64.9 - ANEMIA, UNSPECIFIED (3) Vomiting without nausea, intractable Code(s): R11.11 - VOMITING WITHOUT NAUSEA (4) Pancreatitis Code(s): K85.90 - ACUTE PANCREATITIS WITHOUT NECROSIS OR INFECTION, UNSP Qualifiers: Chronicity: acute Pancreatitis type: unspecified pancreatitis type Acute pancreatitis complication: unspecified Qualified Code(s): K85.90 - Acute pancreatitis without necrosis or infection, unspecified (5) Hematemesis Code(s): K92.0 - HEMATEMESIS (6) Skin cancer Code(s): C44.90 - UNSPECIFIED MALIGNANT NEOPLASM OF SKIN, UNSPECIFIED (7) COPD (chronic obstructive pulmonary disease) Code(s): J44.9 - CHRONIC OBSTRUCTIVE PULMONARY DISEASE, UNSPECIFIED Qualifiers: COPD type: COPD with acute lower respiratory infection Qualified Code(s): J44.0 - Chronic obstructive pulmonary disease with acute lower respiratory infection (8) Parkinsonism Code(s): G20 - PARKINSON'S DISEASE
--- NOTE | 2018-11-14 15:42 | CON.CARD ---
Consult Consult Specialty:: Cardiology Referred by:: Dr. Harry Ayala Reason for Consultation:: Preop cholecystectomy - History of Present Illness Chief Complaint: abdominal pain History of Present Illness: 83M COPD, heavy smoker admitted w/ abdominal pain, Nausea found to have gallstone pancreatitis. A lap collette has been recommended by GI/surgery. We are called for preop CV risk assessment. He reports he is basically bedbound. Chronic MEDRANO. Denies h/o of prior VA or cardiac disease. Does not see a construction coordinator. Just had ?skin ca removed from left foot 2 weeks ago under [facility] (his report) and no complications. 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 bronchoscopies and chest tubes. 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 History of Recent Travel: No Home Medications - Allergies Allergies/Adverse Reactions: Allergies Allergy/AdvReac Type Severity Reaction Status Date / Time No Known Drug Allergies Allergy Verified 11/05/18 11:15 - Home Medications Home Medications: Ambulatory Orders Ascorbate Calcium [Vitamin C] 500 mg PO DAILY 02/15/14 Carbidopa/Levodopa [Sinemet -] 2 tab PO TID 02/15/14 Divalproex [Depakote -] 750 mg PO HS 02/15/14 Fluticasone Prop 0.05% Nasal [Flonase -] 1 spray DAILY 02/15/14 Hydrochlorothiazide [Hctz -] 25 mg PO DAILY 02/15/14 Ropinirole HCl [Requip] 1 mg PO HS 02/15/14 Tamsulosin HCl [Flomax -] 2 cap PO HS 02/15/14 Cholecalciferol (Vitamin D3) [Vitamin D3] 1,000 unit PO DAILY 12/09/14 Multivitamin [Poly-Vitamin] 1 each PO DAILY 12/09/14 Polyethylene Glycol 3350 [Miralax 119 gm Btl -] 17 gm PO DAILY 12/09/14 Salmeterol/Fluticasone [Advair 100Mcg/50Mcg -] 1 inh PO BID 12/09/14 Selenium Sulfide/Menthol [Selsun Blue 1% Shampoo] 0 ml TP TH 12/09/14 Sennosides [Senna] 2 tab PO HS 12/09/14 Simvastatin 40 mg PO PCHS 12/09/14 Ferrous Gluconate [Iron] 325 mg PO BID 08/13/15 Family Disease History - Family Disease History Family Disease History: Other: Father ( 60s of CVAs), Mother (lived to her 90s) Review of Systems Findings/Remarks: see HPI - Review of Systems Constitutional: reports: No Symptoms Eyes: reports: No Symptoms HENT: reports: No Symptoms Neck: reports: No Symptoms Cardiovascular: reports: Shortness of Breath Respiratory: reports: Exercise Intolerance, SOB on Exertion Gastrointestinal: reports: Abdominal Pain Musculoskeletal: reports: No Symptoms Integumentary: reports: No Symptoms Neurological: reports: No Symptoms Endocrine: reports: No Symptoms Hematology/Lymphatic: reports: No Symptoms Psychiatric: reports: No Symptoms - Risk Factors Known Risk Factors: Yes: Hypertension, Smoking Vital Signs: Vital Signs Temperature 97.7 F 11/14/18 14:27 Pulse Rate 93 H 11/14/18 14:27 Respiratory Rate 18 11/14/18 14:27 Blood Pressure 118/60 11/14/18 14:27 O2 Sat by Pulse Oximetry (%) 95 11/14/18 09:00 Constitutional: Yes: No Distress, Calm, Other (PALE) Eyes: Yes: Conjunctiva Clear Respiratory: Yes: Other (decreased breath sounds b/l c/w COPD, no rales, no active wheezing) Gastrointestinal: Yes: Soft Cardiovascular: Yes: Regular Rate and Rhythm JVD: No Carotid Bruit: No PMI: Non-Displaced Heart Sounds: Yes: S1, S2 Edema: No Peripheral Pulses WNL: Yes Neurological: Yes: Alert, Oriented ...Motor Strength: WNL - Other Data Labs, Other Data: CBC, BMP 11/14/18 06:00 11/14/18 06:00 INR, PTT INR 1.25 (0.83-1.09) H 11/14/18 06:00 Microbiology 11/05/18 20:57 Blood - Peripheral Venous Blood Culture - Final NO GROWTH AFTER 5 DAYS INCUBATION 11/05/18 20:53 Blood - Peripheral Venous Blood Culture - Final NO GROWTH AFTER 5 DAYS INCUBATION Laboratory Tests 11/06/18 11/14/18 11/14/18 06:00 06:00 06:00 WBC 9.3 Hgb 10.5 L Plt Count 240 INR 1.25 H Sodium Potassium Creatinine AST ALT 218 H Alkaline Phosphatase 124 H Lipase 423 H 11/14/18 06:00 WBC Hgb Plt Count INR Sodium 137 Potassium 3.7 Creatinine 0.6 AST 14 L ALT 11 [address] Lipase ST, nsst changes Echo: Pending Imaging - Results Chest X-ray: Image Reviewed EKG: Image Reviewed Assessment/Plan IMP: Biliary pancreatitis COPD w/ long smoking hx HTN Poor exercise capacity and functional status. He is currently euvolemic and with acceptable BP. REC: Although there do not appear to be any absolute cardiac contraindications to surgery, his operative risk is considered high in light of advanced age/COPD and poor functional status. It is also likely that he has some degree of underlying CAD. Agree with preop echo for EF assessment. Would not initiate preop B-Huang given his COPD and inadequate time to titrate. Suggest preop Pulm eval as well to optimize his regimen and for post op pulm f/ u. Thank you
--- NOTE | 2018-11-14 16:19 | ECHO ---
Name: EDWIN LEIVA Exam:Adult Echocardiogram Study Date: 11/14/2018 02:54 PM Age: 83 yrs Reason For Study: DIZZINESS BEFORE FALL Height: 66 in Weight: 126 lb BSA: 1.6 m2 MMode/2D Measurements & Calculations IVSd: 0.72 cm Ao root diam: 2.8 cm LVIDd: 4.2 cm LVIDs: 2.7 cm LVPWd: 0.66 cm EDV(Teich): 77.8 ml LVOT diam: 2.0 cm ESV(Teich): 26.6 ml Doppler Measurements & Calculations MV E max ray: 72.1 cm/sec Ao V2 max: 118.7 cm/sec MV A max ray: 104.6 cm/sec Ao max P.6 mmHg MV E/A: 0.69 Ao V2 mean: 74.7 cm/sec MV dec time: 0.17 sec Ao mean P.4 mmHg Ao V2 VTI: 21.8 cm RIA(I,D): 2.9 cm2 RIA(V,D): 2.8 cm2 LV V1 max P.5 mmHg SV(LVOT): 62.9 ml LV V1 mean P.8 mmHg LV V1 max: 106.6 cm/sec LV V1 mean: 59.7 cm/sec LV V1 VTI: 20.2 cm TR max ray: 233.3 cm/sec Med Peak E' Ray: 5.9 cm/sec TR max P.9 mmHg Med E/e': 12.1 Lat Peak E' Ray: 5.0 cm/sec Lat E/e': 14.5 Left Ventricle The left ventricular size, thickness and function are normal. LVEF = 65%. E/A reversal consistent wit h but not diagnostic of poor LV compliance. Right Ventricle The right ventricle is mild to moderately dilated. There is mild right ventricular hypertrophy. The r ight ventricular systolic function is normal. Atria Normal left and right atrial size and function. Mitral Valve There is moderate mitral annular calcification. There is mild mitral regurgitation. Tricuspid Valve The tricuspid valve is not well visualized. There is mild to moderate tricuspid regurgitation. Right ventricular systolic pressure is 34 mmhg. Aortic Valve There is moderate aortic sclerosis.;. No hemodynamically significant valvular aortic stenosis. Interpretation Summary The left ventricular size, thickness and function are normal. LVEF = 65%. The right ventricle is mild to moderately dilated. There is mild right ventricular hypertrophy. The r ight ventricular systolic function is normal. Normal left and right atrial size and function. There is moderate aortic sclerosis.; No hemodynamically significant valvular aortic stenosis. There is mild mitral regurgitation. MD Catarina Downey 11/14/2018 04:19 PM
[2018-11-14] MEDS: TAMSULOSIN HCL 0.4 MG CAP PO SCH (22:53)
[2018-11-14] MEDS: SENNOSIDES 8.6MG TABLET (FP) PO SCH (22:53)
[2018-11-14] MEDS: rOPINIRole HCL 1 MG TABLET (FP) PO SCH (22:54)
[2018-11-15] MEDS ORDERED: ceFAZolin SODIUM 1 GM VIAL ONE ×3 (01:48→17:21)
[2018-11-15] MEDS ORDERED: DEXTROSE 5%-WATER - 50 ML IVPB ONE ×3 (01:48→17:21)
[2018-11-15] MEDS: CEFAZOLIN 1 GM in DEXTROSE 5%-WATER - 50 ML IVPB SCH ×3 (02:20→17:22)
[2018-11-15] MEDS: CARBIDOPA/LEVODOPA 10/100 TABLET (FP) PO SCH ×3 (06:11→22:44)
[2018-11-15] MEDS: PANTOPRAZOLE 40 MG TABLET (FP) PO SCH (10:05)
[2018-11-15] MEDS: URSODIOL 300 MG CAPSULE PO SCH ×2 (10:05→22:43)
[2018-11-15] MEDS: FLUTICASONE/SALMETEROL 100 MCG/50 MCG DISKUS IH SCH (10:05)
--- NOTE | 2018-11-15 13:08 | PN ---
Progress Note (short form) - Note Progress Note: no complaints ate without problems had a bm no abd pain wants to undergo surgery - lap collette spoke with GI-- he had ERCP under general anesthesia Vital Signs - 24 hr 11/14/18 11/14/18 11/14/18 14:27 18:00 21:00 Temperature 97.7 F 98 F Pulse Rate 93 H 80 Respiratory 18 18 Rate Blood Pressure 118/60 140/64 O2 Sat by Pulse 95 Oximetry (%) 11/14/18 11/15/18 22:58 06:00 Temperature 97.9 F 97.6 F Pulse Rate 78 75 Respiratory 18 18 Rate Blood Pressure 137/62 129/63 O2 Sat by Pulse Oximetry (%) Current Medications Generic Name Dose Route Start Last Admin Trade Name Freq PRN Reason Stop Dose Admin Bisacodyl 10 mg 11/12/18 09:30 11/12/18 12:41 Dulcolax Suppository - [place] 10 mg DAILY PRN Administration CONSTIPATION Carbidopa/Levodopa 2 each 11/05/18 22:00 11/15/18 06:11 Sinemet 10/100 - PO 2 each TID PETE Administration Cefazolin Sodium 1 gm/ 50 mls @ 100 mls/hr 11/10/18 02:00 11/15/18 10:05 Dextrose IVPB 100 mls/hr Q8H-IV PETE Administration Metronidazole 500 mg in 100 mls @ 100 mls/hr 11/10/18 02:00 11/15/18 10:05 Flagyl 500mg Premixed Ivpb - IVPB 100 mls/hr Q8H-IV PETE Administration Magnesium Hydroxide 30 ml 11/12/18 09:30 11/12/18 16:25 Milk Of Magnesia - PO 30 ml Q8H PRN Administration INDIGESTION Pantoprazole Sodium 40 mg 11/09/18 10:00 11/15/18 10:05 Protonix - PO 40 mg DAILY PETE Administration Ropinirole HCl 1 mg 11/05/18 22:00 11/14/18 22:54 Requip - PO 1 mg HS PETE Administration Fluticasone/Salmeterol 1 puff 11/05/18 22:00 11/15/18 10:05 Advair 100mcg/50mcg - IH 1 puff BID PETE Administration Senna 2 tab 11/12/18 22:00 11/14/18 22:53 Senna - PO Not Given HS PETE Tamsulosin HCl 0.8 mg 11/05/18 22:00 11/14/18 22:53 Flomax - PO 0.8 mg HS PETE Administration Ursodiol 300 mg 11/08/18 22:00 11/15/18 10:05 Actigal - PO 300 mg BID PETE Administration S1 S2 RRR Lungs decreased Abd- soft, NT no edema PLAN LFT normal s/p ERCP and removal of stones iv antibiotics pt wants cholecystectomy-->he is a high surgical risk to undergo general anesthesia-- I made him aware of that-- he still would like to proceed Cardiology consult appreciated Echo noted Pulmonary for clearance spoke with Surgeon-- once cleared by Cardiology and Pulmonary, will see him in office and arrange for surgery as outpatient. Problem List - Problems (1) Hematemesis Code(s): K92.0 - HEMATEMESIS (2) Vomiting without nausea, intractable Code(s): R11.11 - VOMITING WITHOUT NAUSEA (3) Anxiety Code(s): F41.9 - ANXIETY DISORDER, UNSPECIFIED (4) COPD (chronic obstructive pulmonary disease) Code(s): J44.9 - CHRONIC OBSTRUCTIVE PULMONARY DISEASE, UNSPECIFIED Qualifiers: COPD type: COPD with acute lower respiratory infection Qualified Code(s): J44.0 - Chronic obstructive pulmonary disease with acute lower respiratory infection (5) Parkinsonism Code(s): G20 - PARKINSON'S DISEASE
--- NOTE | 2018-11-15 14:30 | PN ---
Progress Note (short form) - Note Progress Note: PULMONARY CONSULTATION DICTATED IMP GALLSTONE PANCREATITIS ADVANCE COPD H/O LEFT VAT SECONDARY TO PLEURAL EFFUSION - MALIGNANCY GERD HTN HLD CHRONIC CONSTIPATION BPH PLAN ABG INHALED BRONCHODILATORS SHORT COURSE OF MEDROL O2 ABX THERE ARE NO ABSOLUTE PULMONARY CONTRAINDICATIONS FOR ANTICIPATED SURGERY ALTHOUGH PT IS A MODERATE TO HIGH RISK FOR POST OP-PULMONARY COMPLICATION DR READ Problem List - Problems (1) Anemia Code(s): D64.9 - ANEMIA, UNSPECIFIED (2) Biliary acute pancreatitis Code(s): K85.10 - BILIARY ACUTE PANCREATITIS WITHOUT NECROSIS OR INFECTION Qualifiers: Acute pancreatitis complication: no infection or necrosis Qualified Code(s) : K85.10 - Biliary acute pancreatitis without necrosis or infection (3) Choledocholithiasis Code(s): K80.50 - CALCULUS OF BILE DUCT W/O CHOLANGITIS OR CHOLECYST W/O OBST (4) Pancreatitis Code(s): K85.90 - ACUTE PANCREATITIS WITHOUT NECROSIS OR INFECTION, UNSP Qualifiers: Chronicity: acute Pancreatitis type: unspecified pancreatitis type Acute pancreatitis complication: unspecified Qualified Code(s): K85.90 - Acute pancreatitis without necrosis or infection, unspecified (5) Skin cancer Code(s): C44.90 - UNSPECIFIED MALIGNANT NEOPLASM OF SKIN, UNSPECIFIED (6) COPD (chronic obstructive pulmonary disease) Code(s): J44.9 - CHRONIC OBSTRUCTIVE PULMONARY DISEASE, UNSPECIFIED Qualifiers: COPD type: COPD with acute lower respiratory infection Qualified Code(s): J44.0 - Chronic obstructive pulmonary disease with acute lower respiratory infection (7) Tobacco dependence Code(s): F17.200 - NICOTINE DEPENDENCE, UNSPECIFIED, UNCOMPLICATED
[2018-11-15] MEDS ORDERED: ALBUTEROL SO4 0.083% IH SOL 2.5 MG/3 ML VIAL.NEB. NEB PRN (14:40)
[2018-11-15] MEDS ORDERED: PT OWN MED DRAWER 7, Y5N ONE ×2 (14:41→14:47)
[2018-11-15] MEDS: methylPREDNISolone NA SUCC 40 MG/1 ML VIAL IVPUSH SCH ×2 (14:50→17:10)
[2018-11-15] MEDS: ALBUTEROL SO4 2.5/IPRATROPIUM 0.5 INH SOL 3 ML VIAL.NEB. NEB SCH ×2 (15:45→20:10)
[2018-11-15 15:47] LABS: ARTERIAL BLD GAS O2 SATURATION 94.5 % (95-98); ARTERIAL BLOOD GAS BASE EXCESS 2.5 meq/l (-2-2); ARTERIAL BLOOD GAS PCO2 35.6 mmHg (35-45); ARTERIAL BLOOD GAS PO2 68.6 mmHg (80-100); ARTERIAL BLOOD GAS pH 7.47 (7.35-7.45)
[2018-11-15 15:48] LABS: ALLENS TEST POSITIVE
--- NOTE | 2018-11-15 15:54 | PN ---
Progress Note (short form) - Note Progress Note: s: no cp palps dizzy loc. sob at baseline. Current Medications Generic Name Dose Route Start Last Admin Trade Name Freq PRN Reason Stop Dose Admin Albuterol Sulfate 1 amp 11/15/18 14:40 Ventolin 0.083% Nebulizer Soln - NEB Q4H PRN SHORT OF BREATH/WHEEZING Albuterol/Ipratropium 1 amp 11/15/18 16:00 Duoneb - NEB RQID PETE Bisacodyl 10 mg 11/12/18 09:30 11/12/18 12:41 Dulcolax Suppository - [place] 10 mg DAILY PRN Administration CONSTIPATION Carbidopa/Levodopa 2 each 11/05/18 22:00 11/15/18 14:44 Sinemet 10/100 - PO 2 each TID PETE Administration Cefazolin Sodium 1 gm/ 50 mls @ 100 mls/hr 11/10/18 02:00 11/15/18 10:05 Dextrose IVPB 100 mls/hr Q8H-IV PETE Administration Metronidazole 500 mg in 100 mls @ 100 mls/hr 11/10/18 02:00 11/15/18 10:05 Flagyl 500mg Premixed Ivpb - IVPB 100 mls/hr Q8H-IV PETE Administration Magnesium Hydroxide 30 ml 11/12/18 09:30 11/12/18 16:25 Milk Of Magnesia - PO 30 ml Q8H PRN Administration INDIGESTION Methylprednisolone Sodium Succinate 40 mg 11/15/18 14:45 11/15/18 14:50 Solu-Medrol - IVPUSH 40 mg Q8H-IV PETE Administration Pantoprazole Sodium 40 mg 11/09/18 10:00 11/15/18 10:05 Protonix - PO 40 mg DAILY PETE Administration Ropinirole HCl 1 mg 11/05/18 22:00 11/14/18 22:54 Requip - PO 1 mg HS PETE Administration Senna 2 tab 11/12/18 22:00 11/14/18 22:53 Senna - PO Not Given HS PETE Tamsulosin HCl 0.8 mg 11/05/18 22:00 11/14/18 22:53 Flomax - PO 0.8 mg HS PETE Administration Ursodiol 300 mg 11/08/18 22:00 11/15/18 10:05 Actigal - PO 300 mg BID PETE Administration Vital Signs Period Temp Pulse Resp BP Sys/Hoff Pulse Ox Last 24 Hr 97.5 F-98 F 75-98 18-18 127-140/56-64 95-96 Constitutional: Yes: No Distress, Calm Eyes: Yes: Conjunctiva Clear Respiratory: Yes: Other (decreased breath sounds b/l c/w COPD, no rales, no active wheezing) Gastrointestinal: Yes: Soft Cardiovascular: Yes: Regular Rate and Rhythm JVD: No Carotid Bruit: No PMI: Non-Displaced Heart Sounds: Yes: S1, S2 Edema: No Neurological: Yes: Alert, Oriented CBC, BMP 11/14/18 06:00 11/14/18 06:00 ST, nsst changes echo 10/2018: nl lv, mild rve, nl rv fcn, mild mr, mild-mod tr, nl rvsp Assessment/Plan IMP: Biliary pancreatitis COPD w/ long smoking hx HTN REC: Cardiac stevens remains stable. BP controlled. No signs chf or acs. Echo here unremarkable. No cardiac contraindications (intermediate risk) to planned cholecystectomy. Pulm evaluating as well.
--- NOTE | 2018-11-15 15:58 | CONS ---
PULMONARY CONSULTATION DATE OF CONSULTATION: 11/15/2018 REFERRING PHYSICIAN: Adele Ayala MD HISTORY OF PRESENT ILLNESS: The patient is an 83-year-old, white male with a past medical history of advanced COPD, long-standing history of tobacco use approximately 2-1/2 packs per day for 65 years (quit 6 years ago), history of a left VAT secondary to a pleural effusion in 2014, hyperlipidemia, BPH, history of anemia, hypertension, chronic constipation, admitted to [facility] from [facility] secondary to abdominal pain and nausea. The patient was found to have gallstone pancreatitis. The patient underwent an ERCP for removal of stones. The patient is being scheduled for possible cholecystectomy. Patient does complain of shortness of breath with minimal exertion. He has a chronic cough productive of clear sputum. Denies any hemoptysis, nausea, chest pain or palpitations. Denies any fevers or chills. Of note is the patient as stated before has had chest tube secondary to previous thoracentesis and that he also had a bronchoscopy secondary to mucus plugging. PAST MEDICAL HISTORY: Again includes advanced COPD, history of left pleural effusion status post VAT, BPH, basal cell CA and multiple skin cancer excisions lower extremities, history of hyperlipidemia, hypertension, anemia, and GERD. REVIEW OF SYSTEMS: Positive for shortness of breath with minimal exertion. Positive cough. No chest pain. No palpitations. Positive mild congestion. No fever. No chills. No hemoptysis. 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 No occupational exposures, but long-standing history of tobacco use approximately 2-1/2 packs per day for 65 years (quit 6 years ago). CURRENT MEDICATIONS: Include Advair, Flomax, , Flagyl, Dulcolax, Milk of Magnesia, Actigall, Sinemet, Protonix. PHYSICAL EXAMINATION: General: The patient is an elderly, white male, thin, well-developed, awake, alert. Currently in no acute distress. Vital Signs: He is afebrile, blood pressure 127/56, respiratory rate is 18, O2 saturation is 95% on 2 L. HEENT: Exam is normocephalic, atraumatic. Neck: Supple. Heart: Regular S1, S2. Chest: Scattered bilateral rhonchi. Abdomen: Soft. Bowel sounds are positive. Extremities: No cyanosis or edema. LABORATORIES: WBC is 9.3, hemoglobin 10.5, hematocrit 31.2, with a platelet count of 240,000. INR is 1.25. BUN 18, creatinine 0.6. Chest x-ray: No acute infiltrates. There is left base atelectasis. No effusions. IMPRESSION: 1. Gallstone pancreatitis. Status post endoscopic retrograde cholangiopancreatography with removal of gallstones. 2. Advanced chronic obstructive pulmonary disease. 3. History of left VATS, secondary to pleural effusion; negative malignancy. 4. Gastroesophageal reflux disease. 5. Hypertension. 6. Hyperlipidemia. 7. Chronic constipation. 8. BPH. PLAN: At this time, there are no absolute pulmonary contraindications to anticipated surgery, although patient is at marked high risk of postop pulmonary complications. I will obtain ABG preop. Continue inhaled bronchodilators. A short course of Medrol. Supplemental O2 and continue antibiotics. AMAYA READ M.D. [id number]
[2018-11-15] MEDS: TAMSULOSIN HCL 0.4 MG CAP PO SCH (22:43)
[2018-11-15] MEDS: SENNOSIDES 8.6MG TABLET (FP) PO SCH (22:43)
[2018-11-15] MEDS: rOPINIRole HCL 1 MG TABLET (FP) PO SCH (22:44)
[2018-11-16] MEDS ORDERED: DEXTROSE 5%-WATER - 50 ML IVPB ONE ×2 (00:44→08:51)
[2018-11-16] MEDS ORDERED: ceFAZolin SODIUM 1 GM VIAL ONE ×2 (00:44→08:51)
[2018-11-16] MEDS: CEFAZOLIN 1 GM in DEXTROSE 5%-WATER - 50 ML IVPB SCH ×2 (01:21→09:09)
[2018-11-16] MEDS: methylPREDNISolone NA SUCC 40 MG/1 ML VIAL IVPUSH SCH ×2 (01:21→09:06)
[2018-11-16] MEDS: CARBIDOPA/LEVODOPA 10/100 TABLET (FP) PO SCH ×2 (06:22→14:18)
[2018-11-16] MEDS: ALBUTEROL SO4 2.5/IPRATROPIUM 0.5 INH SOL 3 ML VIAL.NEB. NEB SCH ×3 (07:55→15:30)
[2018-11-16] MEDS: URSODIOL 300 MG CAPSULE PO SCH (09:06)
[2018-11-16] MEDS: PANTOPRAZOLE 40 MG TABLET (FP) PO SCH (09:06)
--- NOTE | 2018-11-16 10:56 | PN ---
Progress Note (short form) - Note Progress Note: Resting in NAD on NC O2. No CP or SOB. Congested cough and MEDRANO. Intake & Output 11/13/18 11/14/18 11/15/18 11/16/18 23:59 23:59 23:59 23:59 Intake Total 550 1000 Balance 550 1000 Last Vital Signs Temp Pulse Resp BP Pulse Ox 97.7 F 78 18 140/62 98 11/16/18 09:24 11/16/18 09:24 11/16/18 09:24 11/16/18 09:24 11/15/18 21:00 Active Medications Albuterol Sulfate (Ventolin 0.083% Nebulizer Soln -) 1 amp NEB Q4H PRN PRN Reason: SHORT OF BREATH/WHEEZING Albuterol/Ipratropium (Duoneb -) 1 amp NEB RQID PETE Last Admin: 11/15/18 20:10 Dose: 1 amp Bisacodyl (Dulcolax Suppository -) 10 mg SC DAILY PRN PRN Reason: CONSTIPATION Last Admin: 11/12/18 12:41 Dose: 10 mg Carbidopa/Levodopa (Sinemet 10/100 -) 2 each PO TID PETE Last Admin: 11/16/18 06:22 Dose: 2 each Cefazolin Sodium 1 gm/ (Dextrose) 50 mls @ 100 mls/hr IVPB Q8H-IV PETE Last Admin: 11/16/18 09:09 Dose: 100 mls/hr Metronidazole (Flagyl 500mg Premixed Ivpb -) 500 mg in 100 mls @ 100 mls/hr IVPB Q8H-IV PETE Last Admin: 11/16/18 10:21 Dose: 100 mls/hr Magnesium Hydroxide (Milk Of Magnesia -) 30 ml PO Q8H PRN PRN Reason: INDIGESTION Last Admin: 11/12/18 16:25 Dose: 30 ml Methylprednisolone Sodium Succinate (Solu-Medrol -) 40 mg IVPUSH Q8H-IV PETE Last Admin: 11/16/18 09:06 Dose: 40 mg Pantoprazole Sodium (Protonix -) 40 mg PO DAILY PETE Last Admin: 11/16/18 09:06 Dose: 40 mg Ropinirole HCl (Requip -) 1 mg PO HS [facility] Last Admin: 11/15/18 22:44 Dose: 1 mg Senna (Senna -) 2 tab PO HS [facility] Last Admin: 11/15/18 22:43 Dose: 2 tab Tamsulosin HCl (Flomax -) 0.8 mg PO [facility] Last Admin: 11/15/18 22:43 Dose: 0.8 mg Ursodiol (Actigal -) 300 mg PO BID [facility] Last Admin: 11/16/18 09:06 Dose: 300 mg Constitutional: Yes: No Distress, thin Eyes: Yes: Conjunctiva Clear Respiratory: Yes: bilateral scattered rhonchi, no wheeze appreciated Gastrointestinal: Yes: Soft Cardiovascular: Yes: Regular Rate and Rhythm JVD: No Carotid Bruit: No PMI: Non-Displaced Heart Sounds: Yes: S1, S2 Edema: No Peripheral Pulses WNL: Yes Neurological: Yes: Alert, Oriented ...Motor Strength: WNL Laboratory Results - last 24 hr 11/15/18 15:27 Anticoagulation Therapy No Result Required. Puncture Site Right radial ABG pH 7.47 H ABG pCO2 at Pt Temp 35.6 ABG pO2 at Pt Temp 68.6 L ABG HCO3 25.5 ABG O2 Sat (Measured) 94.5 L ABG O2 Content 17.1 ABG Base Excess 2.5 H [place] Test Positive O2 Delivery Device No Result Required. Oxygen Flow Rate Room air Vent Mode No Result Required. Vent Rate No Result Required. Mechanical Rate No Result Required. Pressure Support Vent No Result Required. Problem List - Problems (1) Anemia Code(s): D64.9 - ANEMIA, UNSPECIFIED (2) Biliary acute pancreatitis Code(s): K85.10 - BILIARY ACUTE PANCREATITIS WITHOUT NECROSIS OR INFECTION Qualifiers: Acute pancreatitis complication: no infection or necrosis Qualified Code(s) : K85.10 - Biliary acute pancreatitis without necrosis or infection (3) Choledocholithiasis Code(s): K80.50 - CALCULUS OF BILE DUCT W/O CHOLANGITIS OR CHOLECYST W/O OBST (4) Pancreatitis Code(s): K85.90 - ACUTE PANCREATITIS WITHOUT NECROSIS OR INFECTION, UNSP Qualifiers: Chronicity: acute Pancreatitis type: unspecified pancreatitis type Acute pancreatitis complication: unspecified Qualified Code(s): K85.90 - Acute pancreatitis without necrosis or infection, unspecified (5) Skin cancer Code(s): C44.90 - UNSPECIFIED MALIGNANT NEOPLASM OF SKIN, UNSPECIFIED (6) COPD (chronic obstructive pulmonary disease) Code(s): J44.9 - CHRONIC OBSTRUCTIVE PULMONARY DISEASE, UNSPECIFIED Qualifiers: COPD type: COPD with acute lower respiratory infection Qualified Code(s): J44.0 - Chronic obstructive pulmonary disease with acute lower respiratory infection (7) Tobacco dependence Code(s): F17.200 - NICOTINE DEPENDENCE, UNSPECIFIED, UNCOMPLICATED IMP GALLSTONE PANCREATITIS ADVANCED COPD AE OF COPD H/O LEFT VAT SECONDARY TO PLEURAL EFFUSION - MALIGNANCY GERD HTN HLD CHRONIC CONSTIPATION BPH PLAN MEDROL INHALED BRONCHODILATORS O2 TO MAINTAIN SATURATION ABX COVERAGE THERE ARE NO ABSOLUTE PULMONARY CONTRAINDICATIONS FOR ANTICIPATED SURGERY ALTHOUGH PT IS A MODERATE TO HIGH RISK FOR POST OP-PULMONARY COMPLICATION. INCIDENCE OF COMPLICATIONS WOULD BE LESS AFTER RECUPERATION AN OUTPATIENT. DR WADE
--- NOTE | 2018-11-16 12:27 | DS ---
Physical Examination Vital Signs: Vital Signs Temperature 97.7 F 11/16/18 09:24 Pulse Rate 78 11/16/18 09:24 Respiratory Rate 18 11/16/18 09:24 Blood Pressure 140/62 11/16/18 09:24 O2 Sat by Pulse Oximetry (%) 98 11/15/18 21:00 Constitutional: Yes: No Distress, Calm Cardiovascular: Yes: Regular Rate and Rhythm Respiratory: Yes: Diminished Gastrointestinal: Yes: Normal Bowel Sounds, Soft. No: Tenderness Edema: No Labs: CBC, BMP 11/14/18 06:00 11/14/18 06:00 Discharge Summary Reason For Visit: PANCREATITIS Current Active Problems Anemia (Acute) Biliary acute pancreatitis (Acute) Choledocholithiasis (Acute) Hematemesis (Acute) Pancreatitis (Acute) Skin cancer (Acute) Vomiting without nausea, intractable (Acute) Hospital Course: Ismael Bonner is an 83 yo M from [facility] w a pmh of GERD, HTN, HLD, COPD, Anemia, chronic constipation, BPH, arthritis, recent left leg skin cancer removal, and Parkinsons disease who presents to the [facility] er BIBEMS after he experienced coffee ground emesis this morning at the group home after he was eating eggs. Patient states he woke up and felt normal but then he ate eggs for breakfast and after breakfast started vomiting dark material. EMS said that the vomitus appeared to be coffee ground. The patient thinks his vomit was a result of eating some bad food. The patient states that this morning he had abdominal pain and nausea but that has mostly resolved after EMS gave him zofran which made him feel better. Patient states he had a bowel movement yesterday and feels constipated but this is no different than his usual constipation. Hospital course Found to have biliary pancreatitis, choledocholithiasis-- on iv fluids, antibiotics Evaluated by GI-- ERCP done on 11/10 -- sphincterotomy and stone extraction Pt was seen by Surgeon Echo- normal EF Cleared by pulmonary and cardiology to proceed with cholecystectomy under general anesthesia He is on short course steroids As per surgeon-- he would like him to follow up in clinic and he will arrange for outpt lap collette he will need to get his gall bladder removed as he has the potential for recurrent biliary pancreatitis continue antibiotics taper steroids oupt surgical follow up stable for dc to [place] Condition: Stable - Instructions Referrals: Mikey Cardona MD [Staff Physician] - Disposition: [facility] FACILITY - Home Medications Comprehensive Discharge Medication List: Ambulatory Orders Ascorbate Calcium [Vitamin C] 500 mg PO DAILY 02/15/14 Carbidopa/Levodopa [Sinemet -] 2 tab PO TID 02/15/14 Divalproex [Depakote -] 750 mg PO HS 02/15/14 Fluticasone Prop 0.05% Nasal [Flonase -] 1 spray DAILY 02/15/14 Hydrochlorothiazide [Hctz -] 25 mg PO DAILY 02/15/14 Ropinirole HCl [Requip] 1 mg PO HS 02/15/14 Tamsulosin HCl [Flomax -] 2 cap PO HS 02/15/14 Cholecalciferol (Vitamin D3) [Vitamin D3] 1,000 unit PO DAILY 12/09/14 Multivitamin [Poly-Vitamin] 1 each PO DAILY 12/09/14 Polyethylene Glycol 3350 [Miralax 119 gm Btl -] 17 gm PO DAILY 12/09/14 Salmeterol/Fluticasone [Advair 100Mcg/50Mcg -] 1 inh PO BID 12/09/14 Selenium Sulfide/Menthol [Selsun Blue 1% Shampoo] 0 ml TP TH 12/09/14 Sennosides [Senna] 2 tab PO HS 12/09/14 Simvastatin 40 mg PO PCHS 12/09/14 Ferrous Gluconate [Iron] 325 mg PO BID 08/13/15
[2018-11-16] MEDS ORDERED: PT OWN MED DRAWER 7, Y5N ONE (14:16)
[2018-11-16 15:15] VITALS: BP 132/61; PULSE 102; TEMP 97.9
--- NOTE | 2018-11-16 15:52 | PN ---
Progress Note (short form) - Note Progress Note: s: no cp palps dizzy loc. stable dyspnea. Current Medications Albuterol Sulfate (Ventolin 0.083% Nebulizer Soln -) 1 amp NEB Q4H PRN PRN Reason: SHORT OF BREATH/WHEEZING Albuterol/Ipratropium (Duoneb -) 1 amp NEB RQID [facility] Last Admin: 11/16/18 15:30 Dose: 1 amp Bisacodyl (Dulcolax Suppository -) 10 mg WI DAILY PRN PRN Reason: CONSTIPATION Last Admin: 11/12/18 12:41 Dose: 10 mg Carbidopa/Levodopa (Sinemet 10/100 -) 2 each PO TID [facility] Last Admin: 11/16/18 14:18 Dose: 2 each Cefazolin Sodium 1 gm/ (Dextrose) 50 mls @ 100 mls/hr IVPB Q8H-IV [facility] Last Admin: 11/16/18 09:09 Dose: 100 mls/hr Metronidazole (Flagyl 500mg Premixed Ivpb -) 500 mg in 100 mls @ 100 mls/hr IVPB Q8H-IV [facility] Last Admin: 11/16/18 10:21 Dose: 100 mls/hr Magnesium Hydroxide (Milk Of Magnesia -) 30 ml PO Q8H PRN PRN Reason: INDIGESTION Last Admin: 11/12/18 16:25 Dose: 30 ml Methylprednisolone Sodium Succinate (Solu-Medrol -) 40 mg IVPUSH Q8H-IV [facility] Last Admin: 11/16/18 09:06 Dose: 40 mg Pantoprazole Sodium (Protonix -) 40 mg PO DAILY [facility] Last Admin: 11/16/18 09:06 Dose: 40 mg Ropinirole HCl (Requip -) 1 mg PO HS [facility] Last Admin: 11/15/18 22:44 Dose: 1 mg Senna (Senna -) 2 tab PO HS [facility] Last Admin: 11/15/18 22:43 Dose: 2 tab Tamsulosin HCl (Flomax -) 0.8 mg PO HS [facility] Last Admin: 11/15/18 22:43 Dose: 0.8 mg Ursodiol (Actigal -) 300 mg PO BID [facility] Last Admin: 11/16/18 09:06 Dose: 300 mg Vital Signs Period Temp Pulse Resp BP Sys/Hoff Pulse Ox Last 24 Hr 97.7 F-98.6 F 76-102 18-18 130-142/57-73 98 Constitutional: Yes: No Distress, Calm Eyes: Yes: Conjunctiva Clear Respiratory: Yes: Other (decreased breath sounds b/l c/w COPD, no rales, no active wheezing) Gastrointestinal: Yes: Soft Cardiovascular: Yes: Regular Rate and Rhythm JVD: No Carotid Bruit: No PMI: Non-Displaced Heart Sounds: Yes: S1, S2 Edema: No Neurological: Yes: Alert, Oriented ST, nsst changes echo 10/2018: nl lv, mild rve, nl rv fcn, mild mr, mild-mod tr, nl rvsp Assessment/Plan IMP: Biliary pancreatitis COPD w/ long smoking hx HTN REC: - Cardiac stevens remains stable, BP controlled. No signs chf or acs. Echo here unremarkable. - No cardiac contraindications (intermediate risk) to planned cholecystectomy
== END 2018-11-16 17:01 | DRG 444 ==
LOC: JER 11:01 → JERBED 15:41 → J5S 11-06 13:49
PROVIDERS: ADMIT Internal Medicine; ATTEND Internal Medicine
PROC: 0FC98ZZ Extirpation of Matter from Common Bile Duct, Via Natural or Artificial Opening Endoscopic (ICD-10-PCS; principal; 2018-11-10 12:00)
DX: K80.50 Calculus of bile duct without cholangitis or cholecystitis without obstruction (principal); K85.10 Biliary acute pancreatitis without necrosis or infection; K92.0 Hematemesis; E78.5 Hyperlipidemia, unspecified; J44.9 Chronic obstructive pulmonary disease, unspecified; K59.09 Other constipation; N40.0 Benign prostatic hyperplasia without lower urinary tract symptoms; D64.9 Anemia, unspecified; K21.9 Gastro-esophageal reflux disease without esophagitis; G20 Parkinson's disease; F41.9 Anxiety disorder, unspecified; Z85.828 Personal history of other malignant neoplasm of skin
CPT/HCPCS: 36415; 36600; 71045-TC-FY; 74177-TC; 74181-TC; 76705-TC; 80053; 81003; 82150; 82248; 82803; 83605; 83690; 83735; 84100; 84478; 84484; 85025; 85610; 86140; 87040; 93005; 93010; 93306-TC; 94640; 99285-25; J0131; J7030

== ENCOUNTER 2018-12-11 09:29 | Inpatient (IN) | payer OTHER ==
[2018-12-08 15:53] VITALS: BMI 21.4
--- NOTE | 2018-12-11 08:06 | HP ---
Admitting History and Physical - Primary Care Physician PCP: Adele Kilgore - Admission Chief Complaint: gallstone pancreatits History of Present Illness: 83[facility], HTN, HLD, COPD, Anemia, chronic constipation, BPH , arthritis, recent left leg skin cancer removal, and Parkinsons disease who presents to the [facility] after he experienced coffee ground emesis this morning at the [facility] after he was eating eggs. Patient states he woke up and felt normal but then he ate eggs for breakfast and after breakfast started vomiting dark material. EMS said that the vomitus appeared to be coffee ground. The patient thinks his vomit was a result of eating some bad food. The patient states that this morning he had abdominal pain and nausea but that has mostly resolved after EMS gave him zofran which made him feel better. Patient states he had a bowel movement yesterday and feels constipated but this is no different than his usual constipation. He has ERCP and sphincterotomy with stent 3 CBD stones removed. He is in today for elective laparoscopic cholecystetcomy. 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 Cardiovascular: Yes: Hyperlipdemia Pulmonary: Yes: COPD (has required bronchoscopy and chest tubes for collapsed lung due to mucus plugging andh for thoracenteses) Renal/: Yes: BPH Rheumatology: Yes: Other (left hand contracted.) Dermatology: Yes: Basal Cell (multiple skin cancer excisions lower extremities) - Past Surgical History Past Surgical History: Yes: Tonsillectomy - Advance Directives Advance Directives: Yes: DNR - Smoking History Smoking history: Former smoker Have you smoked in the past 12 months: No Aproximately how many cigarettes per day: 2 If you are a former smoker, when did you quit?: 5 years ago - Alcohol/Substance Use Hx Alcohol Use: No History of Substance Use: reports: None - Social History ADL: Support Services 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 History of Recent Travel: No Home Medications - Allergies Allergies/Adverse Reactions: Allergies Allergy/AdvReac Type Severity Reaction Status Date / Time No Known Drug Allergies Allergy Verified 12/11/18 10:24 - Home Medications Home Medications: Ambulatory Orders Ascorbate Calcium [Vitamin C] 500 mg PO DAILY 02/15/14 Carbidopa/Levodopa 10 [Sinemet -] 2 tab PO TID 02/15/14 Divalproex [Depakote -] 750 mg PO HS 02/15/14 Fluticasone Prop 0.05% Nasal [Flonase -] 1 spray DAILY 02/15/14 Ropinirole HCl [Requip] 1 mg PO HS 02/15/14 Tamsulosin HCl [Flomax -] 2 cap PO HS 02/15/14 Cholecalciferol (Vitamin D3) [Vitamin D3] 1,000 unit PO DAILY 12/09/14 Multivitamin [Poly-Vitamin] 1 each PO DAILY 12/09/14 Polyethylene Glycol 3350 [Miralax 119 gm Btl -] 17 gm PO DAILY 12/09/14 Salmeterol/Fluticasone [Advair 100Mcg/50Mcg -] 1 inh PO BID 12/09/14 Selenium Sulfide/Menthol [Selsun Blue 1% Shampoo] 0 ml TP TH 12/09/14 Sennosides [Senna] 2 tab PO HS 12/09/14 Simvastatin 40 mg PO PCHS 12/09/14 Ferrous Gluconate [Iron] 325 mg PO BID 08/13/15 Pantoprazole Sodium [Protonix -] 40 mg PO DAILY #30 tablet.ec 11/16/18 Ursodiol [Actigal -] 300 mg PO BID #60 capsule 11/16/18 predniSONE [Deltasone -] See Taper PO ASDIR 30 Days #30 tab 11/16/18 Review of Systems - Review of Systems Constitutional: denies: Chills, Fever Eyes: denies: Blind Spots, Recent Change in Vision HENT: denies: Difficult Swallowing, Throat Pain Neck: denies: Decreased ROM, Tenderness Cardiovascular: denies: Chest Pain, Palpitations Respiratory: denies: Cough, SOB Gastrointestinal: denies: Abdominal Pain, Constipation, Diarrhea Genitourinary: denies: Burning, Discharge Breasts: reports: No Symptoms Reported Musculoskeletal: reports: Muscle Weakness. denies: Back Pain, Muscle Pain Integumentary: denies: Lesions, Lump Neurological: denies: Seizure, Syncope Endocrine: denies: Unexplained Weight Gain, Unexplained Weight Loss Hematology/Lymphatic: denies: Easily Bruised, Excessive Bleeding Psychiatric: denies: Anxiety, Depression Physical Examination Constitutional: Yes: Well Nourished, No Distress, Calm, Thin Eyes: Yes: Conjunctiva Clear, EOM Intact HENT: Yes: Atraumatic, Normocephalic Neck: Yes: Supple Cardiovascular: Yes: Regular Rate and Rhythm, S1, S2 Respiratory: Yes: Regular, CTA Bilaterally Gastrointestinal: Yes: Normal Bowel Sounds, Soft. No: Abdomen, Obese, Hepatomegaly, Hernia, Tenderness, Tenderness, Epigastrium ...Rectal Exam: Yes: Sphincter Tone Normal. No: Guaiac Negative, Mass Renal/: No: CVA Tenderness - Left, CVA Tenderness - Right Breast(s): No: Mass, Skin Changes Musculoskeletal: Yes: Joint Stiffness, Muscle Weakness. No: Muscle Pain Extremities: No: Cool, Cyanosis Edema: No Peripheral Pulses WNL: Yes Integumentary: No: Rash, Venous Stasis Changes Neurological: Yes: Alert. No: Oriented Psychiatric: Yes: Alert. No: Oriented Imaging - Results Chest X-ray: Report Reviewed, Image Reviewed Cat Scan: Report Reviewed, Image Reviewed Ultrasound: Report Reviewed, Image Reviewed EKG: Report Reviewed, Image Reviewed Problem List - Problems (1) Biliary acute pancreatitis Assessment/Plan: 83[facility] male from [facility] for [facility] cholecystetcom[facility] after bilary pancreatitis NPO and IVF hydration IV Mefoxin SCD Discussed with patient risks, benefits and alternatives of laparoscopic possible open cholecystectomy, including but not limited to bleeding, infection , injury to adjacent structures, leak or injury, intraabdominal abscess, incisional hernia, need for further procedures, ; alternatives include antibiotics, delayed or no surgery - risks of this include failure of nonoperative therapy, perforation, sepsis, recurrence, . Patient desires to proceed with operation - will take to OR for above. Informed consent signed for same. consent consigned by telephone by Nusrat Parrish [phone]. Problems reviewed: Yes Code(s): K85.10 - BILIARY ACUTE PANCREATITIS WITHOUT NECROSIS OR INFECTION Qualifiers: Acute pancreatitis complication: no infection or necrosis Qualified Code(s) : K85.10 - Biliary acute pancreatitis without necrosis or infection (2) Anxiety Code(s): F41.9 - ANXIETY DISORDER, UNSPECIFIED (3) COPD (chronic obstructive pulmonary disease) Code(s): J44.9 - CHRONIC OBSTRUCTIVE PULMONARY DISEASE, UNSPECIFIED Qualifiers: COPD type: COPD with acute lower respiratory infection Qualified Code(s): J44.0 - Chronic obstructive pulmonary disease with (acute) lower respiratory infection (4) Choledocholithiasis Code(s): K80.50 - CALCULUS OF BILE DUCT W/O CHOLANGITIS OR CHOLECYST W/O OBST (5) Pancreatitis Code(s): K85.90 - ACUTE PANCREATITIS WITHOUT NECROSIS OR INFECTION, UNSP Qualifiers: Chronicity: acute Pancreatitis type: unspecified pancreatitis type Acute pancreatitis complication: unspecified Qualified Code(s): K85.90 - Acute pancreatitis without necrosis or infection, unspecified (6) Parkinsonism Code(s): G20 - PARKINSON'S DISEASE
--- NOTE | 2018-12-11 09:17 | OP ---
Operative Note - Note: Operative Date: 12/11/18 Pre-Operative Diagnosis: biliary pancreatitis Operation: laparoscopic cholecystectomy Findings: chronic cholecystitis, critical view of safety was identified. Post-Operative Diagnosis: Same as Pre-op Surgeon: Mikey Cardona Dressing Room Attendant: Jeff Huitron Anesthesiologist/PAID SEARCH MARKETING ANALYST: Jonathan Davenport Anesthesia: General, Local Specimens Removed: gallbladder Estimated Blood Loss (mls): 5 Fluid Volume Replaced (mls): 1,000 Operative Report Dictated: Yes
[~2018-12-11 09:29] MED LIST: LACTATED RINGERS SOLUTION 1,000 ML IV SCH; MORPHINE SULFATE 2 MG/ML VIAL IVPUSH PRN
[2018-12-11] MEDS ORDERED: CARBIDOPA/LEVODOPA 25/100 TABLET (FP) PO ONE ×2 (14:31→15:36)
[2018-12-11] MEDS ORDERED: CEFOXITIN SODIUM 1 GM in DEXTROSE 5%-WATER - 100 ML IVPB ONE (14:32)
[2018-12-11] MEDS ORDERED: fentaNYL CITRATE 250 MCG/5 ML VIAL ONE (15:53)
[2018-12-11] MEDS ORDERED: PROPOFOL 20 ML ONE (15:53)
[2018-12-11] MEDS ORDERED: ROCURONIUM BROMIDE 50 MG/5 ML SYRINGE ONE (15:53)
[2018-12-11] MEDS ORDERED: BUPIVACAINE HCL/PF 0.5% (5 MG/ML) 30 ML VIAL IJ ONE ×2 (15:57→16:30)
[2018-12-11] MEDS ORDERED: BENZOIN TINCTURE SWABSTICK TP ONE (15:57)
[2018-12-11] MEDS ORDERED: cefOXitin SODIUM 2 GM VIAL (RESTRICTED TO ID) IVPB ONE ×2 (16:15→16:28)
[2018-12-11] MEDS ORDERED: GLYCOPYRROLATE 0.2 MG/1 ML VIAL ONE ×4 (17:02→17:09)
[2018-12-11] MEDS ORDERED: NEOSTIGMINE METHYLSULFATE 0.5 MG/ML - 10 ML MDV ONE (17:02)
[2018-12-11] MEDS ORDERED: PROMETHAZINE HCL 25 MG/1 ML VIAL IVPUSH PRN (17:25)
[2018-12-11] MEDS ORDERED: ONDANSETRON 4 MG/2 ML VIAL IVPUSH PRN (17:25)
[2018-12-11] MEDS ORDERED: oxyCODONE HCL 5 MG TABLET PO PRN (17:25)
[2018-12-11] MEDS ORDERED: hydrALAZINE HCL 20 MG/ML VIAL ONE (17:46)
[2018-12-11] MEDS ORDERED: hydrALAZINE HCL 20 MG/ML VIAL IVPUSH PRN (17:50)
[2018-12-11] MEDS ORDERED: MORPHINE SULFATE 2 MG/ML VIAL IVPUSH PRN (19:09)
[2018-12-11] MEDS: LACTATED RINGERS SOLUTION 1,000 ML IV SCH (19:20)
--- NOTE | 2018-12-11 21:46 | OP ---
DATE OF OPERATION: 12/11/2018 PREOPERATIVE DIAGNOSIS: Biliary pancreatitis. POSTOPERATIVE DIAGNOSIS: Biliary pancreatitis. PROCEDURE: Laparoscopic cholecystectomy. ATTENDING SURGEON: Mikey Cardona MD DISC RECORDIST: Jeff Huitron MD ANESTHESIA: Jonathan Davenport MD. ANESTHESIA TYPE: General with local. Local consisted of 0.5% Marcaine, a total of 20 mL given at the port sites. ESTIMATED BLOOD LOSS: 5 mL. INTRAVENOUS FLUID ADMINISTERED: 1000 mL. SPECIMEN: Gallbladder. BRIEF FINDINGS: Patient had a chronic cholecystitis. A critical view of safety was identified, 5-mm clips across the cystic structures. INDICATION: Patient is an 83-year-old male following an episode of biliary pancreatitis was noted to have chronic cholecystitis as well. He was counseled regarding risks, benefits, and alternatives to surgical cholecystectomy, which was the recommendation of GI and his primary care team. He agreed and was taken for the procedure. DESCRIPTION OF PROCEDURE: Patient was brought to the operating room. He was placed in supine position on the operating room table with the left arm extended to 90 degrees perpendicular to the body's midline axis. The anterior abdominal wall was prepped and draped in the standard surgical fashion. Patient had lower extremity SCDs to compression as well as HERMINIA stockings. Patient was induced with general anesthesia, endotracheally intubated by anesthesia without incident. After a formal time-out identifying the operative procedure and site, we began 1st with a supraumbilical port for Delvis entry into the abdomen. It was incised with a 15-blade scalpel, deepened and widened through subcutaneous tissue, which was carried down to the anterior rectus fascia in the midline. It was elevated, and a blunt entry was made into the abdomen. The finger was used to clear the intra-abdominal viscera. A 12-mm Delvis port was then installed into the abdomen and pneumoperitoneum was established to 15 mmHg at which point we began with inspection. There appeared to be chronic adhesions of the gallbladder to the transverse colon and omentum. These were cleared. Additional operative ports were placed at the subxiphoid position as well 2 in right lateral abdomen. While retracting the gallbladder cranially and toward the left shoulder, we began 1st with dissection towards the cystic structures. When the infundibulum was cleared and tensioned, the cystic structures became apparent. Plane was developed behind the cystic artery, which was short and wide. It was controlled with 5-mm clip promotions director and then transected. Additional dissection allowed for clearance and development of planes around the cystic artery. This was taken down and appeared adequately controlled with 5-mm hemoclips and then transected. The gallbladder was then elevated from its hepatic bed using Bovie cautery onto the dome. When it was completely free, it was retrieved from the abdomen after residing the gas port and the camera to the subxiphoid position with an EndoCatch bag from a 10-mm Delvis entry port. It was retrieved and then passed off for final pathologic diagnosis. Additional, hemostasis was obtained on the liver's bed with Bovie cautery. The abdomen was suctioned clear of bloody effluent and a small amount of biliary spillage. The patient was awoken from general anesthesia having tolerated the procedure well. He received intravenous antibiotics prior to the start of surgery. All counts were correct prior to closure of the abdomen. MD SUMANTH Smallwood/[id number]
[2018-12-11] MEDS ORDERED: rOPINIRole HCL 1 MG TABLET (FP) PO SCH (22:00)
[2018-12-11] MEDS ORDERED: TAMSULOSIN HCL 0.4 MG CAP PO SCH (22:00)
[2018-12-11] MEDS ORDERED: DIVALPROEX SODIUM 250 MG TABLET E.C. PO SCH (22:00)
[2018-12-11] MEDS ORDERED: PT OWN MED DRAWER 7, Y5N ONE (22:03)
[2018-12-11] MEDS: FLUTICASONE/SALMETEROL 100 MCG/50 MCG DISKUS IH SCH (23:21)
[2018-12-11] MEDS: CARBIDOPA/LEVODOPA 10/100 TABLET (FP) PO SCH (23:21)
[2018-12-12] MEDS: CARBIDOPA/LEVODOPA 10/100 TABLET (FP) PO SCH ×2 (06:06→13:41)
[2018-12-12] MEDS: LACTATED RINGERS SOLUTION 1,000 ML IV SCH (06:07)
[2018-12-12] MEDS ORDERED: PT OWN MED DRAWER 7, Y5N ONE ×2 (06:51→09:55)
--- NOTE | 2018-12-12 06:53 | DS ---
Physical Examination Vital Signs: Vital Signs Temperature 97.8 F 12/12/18 01:51 Pulse Rate 95 H 12/12/18 01:51 Respiratory Rate 20 12/12/18 01:51 Blood Pressure 139/72 12/12/18 01:51 O2 Sat by Pulse Oximetry (%) 98 12/11/18 21:00 Vital Signs Period Temp Pulse Resp BP Sys/Hoff Pulse Ox Last 24 Hr 97.6 F-98.6 F 57-105 18-24 110-224/54-110 86-98 Findings/Remarks: stable overnight. at baseline, ready for discharge Constitutional: Yes: Well Nourished, No Distress, Calm Eyes: Yes: Conjunctiva Clear, EOM Intact HENT: Yes: Atraumatic, Normocephalic Neck: Yes: Supple, Trachea Midline Cardiovascular: Yes: Regular Rate and Rhythm, S1, S2 Respiratory: Yes: Regular, CTA Bilaterally Gastrointestinal: Yes: Normal Bowel Sounds, Soft ...Rectal Exam: Yes: Deferred Renal/: No: CVA Tenderness - Left, CVA Tenderness - Right Breast(s): No: Mass, Skin Changes Extremities: No: Cool, Cyanosis Edema: No Peripheral Pulses WNL: Yes Peripheral Pulses: Left Radial: 2+, Right Radial: 2+, Left Doralis Pedis: 2+, Right Dorsalis Pedis: 2+, Left Femoral: 2+, Right Femoral: 2+ Integumentary: No: Jaundice, Rash, Skin Tear Wound/Incision: Yes: Clean/Dry, Well Approximated, Open to air Neurological: Yes: Alert, Confusion. No: Oriented Psychiatric: Yes: Alert. No: Oriented Discharge Summary Problems reviewed: Yes Reason For Visit: PANCREATITIS/GALLSTONES Procedures: Principal: laparoscopic cholecysteocmy Hospital Course: admitted for ambulatory procedure. uneventful surgery. stable for discharge home Plan of Treatment: f/u in general surgery clinic in 2 weeks low fat diet resume all home medications Condition: Good - Instructions Diet, Activity, Other Instructions: Postoperative instructions: You had a laparoscopic cholecystectomy on [address] Mikey Cardona of [facility]. Activity: Resume your usual activities gradually, but no heavy exertion or lifting more than 10-15 pounds for 1 month. No bath or swimming until skin incisions have healed. Eat lightly at first, but advance to your usual diet as tolerated. Pain: For pain, you may use and alternate Tylenol (acetaminophen) 1-2 pills and/ or ibuprofen 200 mg (1-3 pills) every 6 hours each as needed; this means that you can take one OR the other at 3-hour intervals. If you are prescribed a Tylenol/narcotic combination for severe pain, use it instead of plain Tylenol as needed and switch back when your pain starts decreasing. Do not take more than 4000mg of acetaminophen in a day. Take medications as prescribed or indicated on the labeling. Follow-up: Call Dr. Cardona' office at [phone] to make your postop appointment (Tuesday in approximately 2 weeks after surgery). Clinic is held in the [facility] on the first floor of [facility]. Call the office if you have: * increasing pain not responsive to pain medication * fever of 101F or higher * vomiting * unusual or increasing bleeding or drainage from wounds * increasing redness or swelling at wound sites * inability to urinate Also, see your primary medical doctor within 1-2 weeks. Disposition: CUSTODIAL FACILITY - Home Medications Comprehensive Discharge Medication List: Ambulatory Orders Ascorbate Calcium [Vitamin C] 500 mg PO DAILY 02/15/14 Carbidopa/Levodopa [Sinemet -] 2 tab PO TID 02/15/14 Divalproex [Depakote -] 750 mg PO HS 02/15/14 Fluticasone Prop 0.05% Nasal [Flonase -] 1 spray DAILY 02/15/14 Ropinirole HCl [Requip] 1 mg PO HS 02/15/14 Tamsulosin HCl [Flomax -] 2 cap PO HS 02/15/14 Cholecalciferol (Vitamin D3) [Vitamin D3] 1,000 unit PO DAILY 12/09/14 Multivitamin [Poly-Vitamin] 1 each PO DAILY 12/09/14 Polyethylene Glycol 3350 [Miralax 119 gm Btl -] 17 gm PO DAILY 12/09/14 Salmeterol/Fluticasone [Advair 100Mcg/50Mcg -] 1 inh PO BID 12/09/14 Selenium Sulfide/Menthol [Selsun Blue 1% Shampoo] 0 ml TP TH 12/09/14 Sennosides [Senna] 2 tab PO HS 12/09/14 Simvastatin 40 mg PO PCHS 12/09/14 Ferrous Gluconate [Iron] 325 mg PO BID 08/13/15 Pantoprazole Sodium [Protonix -] 40 mg PO DAILY #30 tablet.ec 11/16/18 Ursodiol [Actigal -] 300 mg PO BID #60 capsule 11/16/18 predniSONE [Deltasone -] See Taper PO ASDIR 30 Days #30 tab 11/16/18 Prescription Drug Monitoring Program (I-STOP) results: I-STOP not reviewed
[2018-12-12 08:07] LABS: BASO % 0.1 % (0-2.0); HEMATOCRIT 39.6 % (35.4-49); HEMOGLOBIN 12.7 GM/dL (11.7-16.9); LYMPH % 6.6 % (8-40); MCH 30.3 pg (25.7-33.7); MEAN CELL VOLUME 94.6 fl (80-96); MEAN PLT VOLUME 10.6 fl (7.5-11.1); MONO % 6.8 % (3.8-10.2); NEUT % 86.5 % (42.8-82.8); PLATELET COUNT 184 K/MM3 (134-434); RBC 4.19 M/mm3 (4.00-5.60); WHITE BLOOD COUNT 13.9 K/mm3 (4.0-10.0)
[2018-12-12 08:24] LABS: ALBUMIN 2.9 g/dl (3.4-5.0); BILIRUBIN,TOTAL 0.6 mg/dL (0.2-1); BLOOD UREA NITROGEN 25.6 mg/dL (7-18); CALCIUM 8.8 mg/dL (8.5-10.1); POTASSIUM 4.7 mmol/L (3.5-5.1); TOT PROT 5.6 g/dl (6.4-8.2)
[2018-12-12] MEDS ORDERED: ONDANSETRON 4 MG/2 ML VIAL IVPUSH PRN ×2 (09:11)
[2018-12-12 09:59] VITALS: PULSE 105
[2018-12-12] MEDS ORDERED: PANTOPRAZOLE 40 MG TABLET (FP) PO SCH (10:00)
[2018-12-12] MEDS: FLUTICASONE/SALMETEROL 100 MCG/50 MCG DISKUS IH SCH (10:00)
--- NOTE | 2018-12-12 11:56 | PN ---
Progress Note (short form) - Note Progress Note: POD 1 s/p laparoscopic cholecystectomy under GETA. Doing well, no complaints. All questions answered.
--- NOTE | 2018-12-12 12:27 | PN ---
Progress Note (short form) - Note Progress Note: S/p Lap collette no distress Vital Signs - 24 hr 12/11/18 12/11/18 12/11/18 17:20 17:35 17:50 Temperature 97.7 F Pulse Rate 84 83 77 Respiratory 22 H 24 H 22 H Rate Blood Pressure 200/110 H 224/90 H 210/97 H O2 Sat by Pulse 86 L 90 L 87 L Oximetry (%) 12/11/18 12/11/18 12/11/18 18:05 18:20 18:35 Temperature Pulse Rate 60 57 L 63 Respiratory 20 22 H 22 H Rate Blood Pressure 206/82 H 174/77 H 156/54 L O2 Sat by Pulse 88 L 91 L 90 L Oximetry (%) 12/11/18 12/11/18 12/11/18 18:50 19:05 19:20 Temperature 97.6 F Pulse Rate 63 79 70 Respiratory 20 20 20 Rate Blood Pressure 135/54 L 129/57 L 131/55 L O2 Sat by Pulse 95 96 96 Oximetry (%) 12/11/18 12/11/18 12/11/18 20:00 21:00 21:11 Temperature 98.2 F 98.6 F Pulse Rate 79 60 Respiratory 18 18 19 Rate Blood Pressure 128/64 135/63 O2 Sat by Pulse 98 98 Oximetry (%) 12/12/18 12/12/18 12/12/18 01:51 07:32 09:00 Temperature 97.8 F 98.0 F Pulse Rate 95 H 96 H Respiratory 20 18 18 Rate Blood Pressure 139/72 121/55 L O2 Sat by Pulse 94 L Oximetry (%) 12/12/18 09:58 Temperature 98.2 F Pulse Rate 105 H Respiratory 18 Rate Blood Pressure 110/59 L O2 Sat by Pulse Oximetry (%) Current Medications Generic Name Dose Route Start Last Admin Trade Name Freq PRN Reason Stop Dose Admin Carbidopa/Levodopa 2 each 12/11/18 22:00 12/12/18 06:06 Sinemet 10/100 - PO 2 each TID PETE Administration Divalproex Sodium 750 mg 12/11/18 22:00 12/11/18 23:21 Depakote - PO 750 mg HS PETE Administration Heparin Sodium (Porcine) 5,000 unit 12/12/18 14:00 Heparin - SQ TID PETE Hydralazine HCl 10 mg 12/11/18 17:50 12/11/18 17:46 Apresoline Injection - IVPUSH 10 mg Q6H PRN Administration HYPERTENSION Lactated Ringer's 1,000 mls @ 75 mls/hr 12/11/18 19:09 12/12/18 06:07 Lactated Ringers Solution IV 75 mls/hr ASDIR PETE Administration Morphine Sulfate 2 mg 12/11/18 19:09 12/12/18 10:01 Morphine Sulfate IVPUSH 2 mg Q4H PRN Administration PAIN LEVEL 7 - 10 Ondansetron HCl 4 mg 12/12/18 09:11 Zofran Injection IVPUSH Q6H PRN NAUSEA Pantoprazole Sodium 40 mg 12/12/18 10:00 12/12/18 10:01 Protonix - PO 40 mg DAILY PETE Administration Ropinirole HCl 1 mg 12/11/18 22:00 12/11/18 23:21 Requip - PO 1 mg HS PETE Administration Fluticasone/Salmeterol 1 puff 12/11/18 22:00 12/12/18 10:00 Advair 100mcg/50mcg - IH 1 puff BID PETE Administration Tamsulosin HCl 0.8 mg 12/11/18 22:00 12/11/18 23:21 Flomax - PO 0.8 mg HS PETE Administration Laboratory Results - last 24 hr 12/12/18 12/12/18 07:25 07:25 WBC 13.9 H RBC 4.19 Hgb 12.7 Hct 39.6 D MCV 94.6 MCH 30.3 MCHC 32.0 RDW 15.0 Plt Count 184 D MPV 10.6 D Absolute Neuts (auto) 12.0 H Neutrophils % 86.5 H Lymphocytes % 6.6 L D Monocytes % 6.8 Eosinophils % 0.0 D Basophils % 0.1 Nucleated RBC % 0 Sodium 138 Potassium 4.7 Chloride 102 Carbon Dioxide 30 Anion Gap 6 L BUN 25.6 H Creatinine 1.0 Est GFR (CKD-EPI)AfAm 79.19 Est GFR (CKD-EPI)NonAf 68.33 Random Glucose 117 H Calcium 8.8 Total Bilirubin 0.6 AST 78 H ALT 18 Alkaline Phosphatase 59 Total Protein 5.6 L Albumin 2.9 L Lipase 96 S1S2 RRR Lung decreased Abd-- soft,NT Scars noted, BS+ no edema PLAN tolerating po spoke with surgeon ok for dc to NH today Problem List - Problems (1) Biliary acute pancreatitis Code(s): K85.10 - BILIARY ACUTE PANCREATITIS WITHOUT NECROSIS OR INFECTION Qualifiers: Acute pancreatitis complication: no infection or necrosis Qualified Code(s) : K85.10 - Biliary acute pancreatitis without necrosis or infection (2) COPD (chronic obstructive pulmonary disease) Code(s): J44.9 - CHRONIC OBSTRUCTIVE PULMONARY DISEASE, UNSPECIFIED Qualifiers: COPD type: COPD with acute lower respiratory infection Qualified Code(s): J44.0 - Chronic obstructive pulmonary disease with (acute) lower respiratory infection (3) Choledocholithiasis Code(s): K80.50 - CALCULUS OF BILE DUCT W/O CHOLANGITIS OR CHOLECYST W/O OBST
[2018-12-12 13:47] VITALS: BP 107/55; TEMP 98.1
[2018-12-12] MEDS ORDERED: HEPARIN NA (PORCINE) 5,000 UNITS/ML 1ML VIAL SQ SCH ×2 (14:00)
--- NOTE | 2018-12-13 17:09 | PATH ---
Surgical Pathology Report Patient Name: EDWIN LEIVA [facility]. Rec. #: [id number] /Age/Gender: 1935 (Age: 83) / M Account: [id number] Location: [address] [place] [address]/[facility] Taken: 12/11/2018 Received: 12/12/2018 Reported: 12/13/2018 Physicians: Mikey Cardona M.D. Specimen(s) Received GALLBLADDER Clinical History Gallstone pancreatitis Final Diagnosis GALLBLADDER, LAPAROSCOPIC CHOLECYSTECTOMY: ACUTE AND CHRONIC CHOLECYSTITIS WITH CHOLELITHIASIS. SMALL PIECE OF ADHERENT LIVER PARENCHYMA WITHOUT SIGNIFICANT PATHOLOGIC FINDINGS. Electronically Signed Ping Mtz M.D. Gross Description Received in formalin, labeled "gallbladder," is a 5 x 1.8 x 1.5 cm. gallbladder with a 0.2 cm. in length portion of cystic duct attached. The outer surface is pink-boggs, varies from smooth to shaggy, and shows focal 0.7 cm defect. The lumen contains multiple fragmented black choleliths ranging in size from 0.3-1 cm. The mucosa is pink-boggs, velvety, with focal erosions. The wall of the gallbladder measures 0.3 cm. in thickness. Hedis Registered Nurse Rn sections are submitted in one cassette. YO/12/12/2018 phuc/12/12/2018
== END 2018-12-12 19:03 | DRG 417 ==
LOC: JSAMEDAYSX 09:29 → J6S 20:27
PROC: 0FT44ZZ Resection of Gallbladder, Percutaneous Endoscopic Approach (ICD-10-PCS; principal; 2018-12-11 11:00)
DX: K80.12 Calculus of gallbladder with acute and chronic cholecystitis without obstruction (principal); K85.10 Biliary acute pancreatitis without necrosis or infection; K21.9 Gastro-esophageal reflux disease without esophagitis; I10 Essential (primary) hypertension; E78.5 Hyperlipidemia, unspecified; J44.9 Chronic obstructive pulmonary disease, unspecified; D64.9 Anemia, unspecified; N40.0 Benign prostatic hyperplasia without lower urinary tract symptoms; F41.9 Anxiety disorder, unspecified; G20 Parkinson's disease
CPT/HCPCS: 36415; 80053; 83690; 85025; 86850; 86900; 86901; 88304-TC; 94760; 97161-GP; J1644

== ENCOUNTER 2019-03-07 13:41 | Emergency (ER) | payer OTHER ==
--- NOTE | 2019-03-07 13:59 | PDOC ---
History of Present Illness - General Stated Complaint: Respiratory Distress Time Seen by Provider: 03/07/19 13:48 History Source: EMS, [facility] Records, Old Records Exam Limitations: Clinical Condition - History of Present Illness Initial Comments: 03/07/19 14:22 83y M with PMH of Parkinson's Disease, HLD, BPH, COPD, GERD, Bipolar Disorder, Schizoaffective Disorder BIBEMS from [facility] after being found unresponsive, , gasping for air, hypotensive and desaturating. BP 61/45, HR 50, RR 10 saturating at 96%. Pt has order for DNR/DNI but has an order for no limitations on medical interventions for a trial period if there is benefit to the patient. If it is started but can be stopped if not helpful. EMS called PMD who stated intubation is ok at this time. Peripheral levophed was started. Pt was awake upon arrival but not following commands. PMD: Alphonso PMH: see hpi Meds: see med rec Allergies: nkda Past History - Past Medical History Allergies/Adverse Reactions: Allergies Allergy/AdvReac Type Severity Reaction Status Date / Time No Known Drug Allergies Allergy Verified 12/11/18 10:24 Home Medications: Ambulatory Orders Ascorbate Calcium [Vitamin C] 500 mg PO DAILY 02/15/14 Fluticasone Prop 0.05% Nasal [Flonase -] 1 spray DAILY 02/15/14 Cholecalciferol (Vitamin D3) [Vitamin D3] 1,000 unit PO DAILY 12/09/14 Multivitamin [Poly-Vitamin] 1 each PO DAILY 12/09/14 Polyethylene Glycol 3350 [Miralax 119 gm Btl -] 17 gm PO DAILY 12/09/14 Selenium Sulfide/Menthol [Selsun Blue 1% Shampoo] 0 ml TP TH 12/09/14 Sennosides [Senna] 2 tab PO HS 12/09/14 Simvastatin 40 mg PO PCHS 12/09/14 Ferrous Gluconate [Iron] 325 mg PO BID 08/13/15 Ursodiol [Actigal -] 300 mg PO BID #60 capsule 11/16/18 predniSONE [Deltasone -] See Taper PO ASDIR 30 Days #30 tab 11/16/18 Anemia: Yes Asthma: Yes Cancer: No Cardiac Disorders: No CVA: No COPD: Yes CHF: No Dementia: No Diabetes: No GI Disorders: No Disorders: No HTN: Yes Hypercholesterolemia: Yes Liver Disease: No Seizures: Yes Thyroid Disease: No - Surgical History Abdominal Surgery: No Appendectomy: No Cardiac Surgery: No Cholecystectomy: Yes (removal of gallstones) Lung Surgery: No Neurologic Surgery: No Orthopedic Surgery: No - Psycho Social/Smoking Cessation Hx Smoking History: Former smoker Have you smoked in the past 12 months: No Number of Cigarettes Smoked Daily: 2 If you are a former smoker, when did you quit?: 5 years ago Hx Alcohol Use: No Drug/Substance Use Hx: No Substance Use Type: None Hx Substance Use Treatment: No Review of Systems - Review of Systems Able to Perform ROS?: No *Physical Exam - Physical Exam General Appearance: Yes: Thin, Other (opening eyes sluggishly, intubated. ) HEENT: positive: KATELYNN (sluggishly reactive). negative: EOMI (not moving eyes spontaneously), Normal ENT Inspection (edentulous) Respiratory/Chest: positive: Lungs Clear, Rhonchi, Other (breathing at vented rate). negative: Crackles, Stridor, Wheezing Cardiovascular: positive: Regular Rhythm, Regular Rate, S1, S2. negative: JVD, Murmur Vascular Pulses: Carotid (R): 1+, Carotid (L): 1+, Dorsalis-Pedis (R): 0, Doralis-Pedis (L): 0 Gastrointestinal/Abdominal: positive: Flat, Soft Extremity: positive: Other (contracted LUE and lower extremities). negative: Swelling, Calf Tenderness Integumentary: positive: Dry, Pale, Cold. negative: Jaundice, Mottled, Diaphoresis Neurologic: negative: roving frame tender II-XII NML intact (unable to assess), Fully Oriented ( unable to assess), Normal Response Medical Decision Making - Medical Decision Making 03/07/19 13:57 83y M arrived via ems for hypotension, unresponsiveness and bradycardia. Pt intubated with peripheral levophed running. On arrival, patient was lethargic with eyes opening spontanously but sluggish. Pt was normotensive 140s/90s, HR in the 80s, tube placement confirmed by end tidal CO2. poor peripheral pulses. patient became bradycardic at 1345 (based on clock in resus room). compressions started, epi given 1346. pulse check revealed no pulses, wide complex rhythm on monitor. total of [address] Berman spoke to pmd who stated to discontinue resuscitative measures. cardiac us: no contractility. TOD 1352 Spoke to [place] office ([facility]), not an [place] case. Discharge - Discharge Information Problems reviewed: Yes Clinical Impression/Diagnosis: Cardiac arrest, Respiratory arrest Disposition: - Follow up/Referral Referrals: Teo Werner MD [Primary Care Provider] - - Patient Discharge Instructions - Post Discharge Activity
--- NOTE | 2019-03-07 14:04 | PDOC ---
Documentation entered by Jennifer John SCRIBE, acting as scribe for Dana Berman MD. Dana Berman MD: This documentation has been prepared by the Dora lai Xhesika, SCRIBE, under my direction and personally reviewed by me in its entirety. I confirm that the documentation accurately reflects all work, treatment, procedures, and medical decision making performed by me. Attending Attestation - Resident Resident Name: Anya Crowley - ED Attending Attestation I have performed the following: I have examined & evaluated the patient, The case was reviewed & discussed with the resident, I agree w/resident's findings & plan, Exceptions are as noted - HPI HPI: 03/07/19 13:59 The patient is an 83 year old male, with a significant past medical history of GERD, HTN, HLD, COPD, Anemia, chronic constipation, BPH, arthritis, recent left leg skin cancer removal, and Parkinsons Disease , who presents to the emergency department via EMS from [facility] after being found unresponsive by [facility] staff. EMS noted labored breathing, tachycardia and hypotension. En route to the ED pt became more hypotensive. MOST form noted DNI/DNR, however, EMS uncertain, called and clarified with Dr. Adele Ayala whether to intubate or not and she wanted the patient intubated. Pt was then intubated in the field by EMS. Allergies: NKDA Social History: Resident at [facility]. Former smoker. Primary Care Physician: Dr. Adele Ayala - Physicial Exam PE: 03/07/19 14:01 GENERAL: The patient presents to the ER intubated ENT: Ears normal, nares patent, oropharynx clear without exudates. Moist mucous membranes. NECK: Normal range of motion, supple, no nuchal rigidity (+) LAD LUNGS: Breath sounds equal, no breath sounds appreciated over the epigastric region HEART: Tachycardia ABDOMEN: Soft, nondistended EXTREMITIES: Contracted left upper extremity NEUROLOGICAL: Unresponsive to verbal stimuli SKIN: Abrasion overlying the right boo - Critical Care Time Total Critical Care Time: 30 Critical Care Statement: The care of this patient involved high complexity decision making to prevent further life threatening deterioration of the patient 's condition and/or to evaluate & treat vital organ system(s) failure or risk of failure. - Medical Decision Making 03/07/19 14:02 83-year-old male presenting to the emergency department after being found in respiratory distress at [facility]. Most form states patient is DNR/DNI There was some concern that maybe he was not DNI, therefore patient was intubated in the field Patient was started on peripheral levophed, with improvement in his blood pressure Patient noted to lose pulses in the emergency department Call placed to patient's primary care physician to clarify this patient's CODE STATUS I have confirmed with Dr. Adele Israel at this patient is in fact DNR/DNI We will cease resuscitative efforts Time of 1:52pm Clinical impression: Cardiac arrest, initial presentation Respiratory arrest, initial presentation 03/07/19 14:09 Patient primary care physician notified Discharge - Discharge Information Problems reviewed: Yes Clinical Impression/Diagnosis: Cardiac arrest, Respiratory arrest Disposition: - Follow up/Referral Referrals: Teo Werner MD [Primary Care Provider] - - Patient Discharge Instructions - Post Discharge Activity
[2019-03-07 14:49] VITALS: BP 145/85; PULSE 78; BMI 20.5
== END 2019-03-07 15:12 | disposition expired ==
LOC: JER 13:41
PROC: 5A12012 Performance of Cardiac Output, Single, Manual (ICD-10-PCS; principal; 2019-03-07)
DX: I46.9 Cardiac arrest, cause unspecified (principal); I10 Essential (primary) hypertension; E78.00 Pure hypercholesterolemia, unspecified; J44.9 Chronic obstructive pulmonary disease, unspecified; J45.998 Other asthma; D64.9 Anemia, unspecified; G40.909 Epilepsy, unspecified, not intractable, without status epilepticus; F31.9 Bipolar disorder, unspecified
CPT/HCPCS: 99285-25